=== PATIENT | female | born 1965 | race Caucasian/White ===

== ENCOUNTER → 2018-05-21 | Day surgery (SDC) | payer BC ==
[2018-05-17 14:11] LABS: BASOPHILS # (AUTO) 0.1 (0.0-0.1); BASOPHILS % 0.5 % (0.0-1.0); EOSINOPHILS # (AUTO) 0.5 (0.0-0.4); EOSINOPHILS % 5.6 % (0.0-6.0); HEMATOCRIT 41.5 % (34.2-44.1); HEMOGLOBIN 13.6 g/dL (12.0-16.0); LYMPHOCYTES # (AUTO) 2.2 (1.0-3.2); LYMPHOCYTES % 23.1 % (18.0-39.1); MEAN CORPUSCULAR HEMOGLOBIN 30.5 pg (28-32); MEAN CORPUSCULAR HGB CONC 32.8 g/dL (31-35); MONOCYTES # (AUTO) 0.6 (0.2-0.8); MONOCYTES % 5.9 % (4.4-11.3); NEUTROPHILS # (AUTO) 6.1 (2.1-6.9); NEUTROPHILS % 64.4 % (38.7-80.0); PLATELET COUNT 312 x10e3/uL (140-360); RED BLOOD COUNT 4.46 x10e6/uL (3.6-5.1); RED CELL DISTRIBUTION WIDTH 14.5 % (11.7-14.4)
[2018-05-17 14:29] LABS: ANION GAP 15.7 mmol/L (8-16); BLOOD UREA NITROGEN 9 mg/dL (7-26); BUN/CREATININE RATIO 12 (6-25); CALCIUM 9.9 mg/dL (8.4-10.2); CARBON DIOXIDE 24 mmol/L (22-29); CHLORIDE 109 mmol/L (98-107); CREATININE, SERUM 0.75 mg/dL (0.57-1.11); EST GLOMERULAR FILTRATION RATE > 60 ML/MIN (60-); GLUCOSE 92 mg/dL (74-118); POTASSIUM 4.7 mmol/L (3.5-5.1); SODIUM 144 mmol/L (136-145)
--- NOTE | 2018-05-17 14:40 | Diagnostic Imaging Report ---
EXAMINATION: PA and lateral views of the chest. COMPARISON: None CLINICAL HISTORY: Preadmission, right foot surgery DISCUSSION: Lines/tubes: None. Lungs: The lungs are well inflated and clear. No pneumonia or pulmonary edema. Pleura: No pleural effusion or pneumothorax. Heart and mediastinum: The cardiomediastinal silhouette is normal. Bones and soft tissues: No acute bony abnormalities. IMPRESSION: No acute cardiopulmonary abnormalities. Signed by: Dr. Mihai Blackwell M.D. on 05/17/2018 2:37 PM
[~2018-05-21] MED LIST: BUPIVACAINE HCL 0.5% INJ 30 ML VIAL INJ ONE; CLINDAMYCIN PHOS 900MG/ 50ML 50 ML IV ONE; D3 DOTS2000 UNIT PO; DEXAMETHASONE SOD PHOS INJ 4 MG/ML VIAL ONE; DEXILANT60 MG PO; FENTANYL CITRATE/PF 100MCG/2 ML INJ ONE; KETOROLAC TROMETHAMINE 30 MG/ML VIAL ONE; LEVOTHYROXINE150 MCG PO; LIDOCAINE HCL 2% LOCAL INJ 5 ML SDV VIAL INJ ONE; METRONIDAZOLE500 MG PO; MIDAZOLAM HCL 2 MG/2 ML VIAL ONE; NEOSTIGMINE 1 MG/ML 10ML VIAL ONE; ONDANSETRON HCL INJ 2 MG/ML VIAL ONE; PROPOFOL IV EMULSION 10 MG/ML 20 ML VIAL ONE; SEVOFLURANE INHAL SOLN 250 ML PEN BTL ONE
--- OUTSIDE RECORDS SUMMARY | 2018-05-21 05:34 | XMS REPORT | Summary of Care ---
Author Author [facility] Organization [facility] Address Unknown Phone Unavailable Encounter SHAUN Mondragon(JAYNA) [id number] Date(s): 07/04/17 - 07/04/17 [facility] [address] [place] [address]- Discharge Diagnosis: PALPITATIONS Discharge Disposition: Home or Self Care Attending Physician: Damon Pierre DO Vital Signs 1 2 3 Most recent to oldest [Reference Range]: 172.72 cm (07/04/17 4:45 PM) Height 98.0 DegF (07/04/17 4:45 PM) Temperature Oral [96.4-99.1 DegF] 109/68 mmHg (07/04/17 8:04 PM) 106/61 mmHg (07/04/17 7:16 PM) 108/60 mmHg (07/04/17 6:40 PM) Blood Pressure [90-140/60-90 mmHg] 21 BRMIN *HI* (07/04/17 8:04 PM) 15 BRMIN (07/04/17 7:16 PM) 18 BRMIN (07/04/17 6:40 PM) Respiratory Rate [14-20 BRMIN] 157 bpm *HI* (07/04/17 4:45 PM) Peripheral Pulse Rate [60-100 bpm] 68.182 kg (07/04/17 4:45 PM) Weight 22.86 m2 (07/04/17 4:45 PM) Body Mass Index Problem List Condition Effective Dates Status Health Status Informant Acquired Resolved hypothyroidism(Confi rmed) Bipolar(Confirmed) Resolved Allergies, Adverse Reactions, Alerts Substance Reaction Severity Status penicillins Active codeine Active Lodine Active NKDA Active Medications NS (Bolus) IV 1,000 mL, 1,000 ml/hr, Infuse Over: 1 hr, Route: IV, ONCE, Priority: STAT, Dosin g Weight 68.182 kg, Start date: 07/04/17 18:04:00 [employer]ING MANUFACTURING SET UP TECHNICIAN, Stop date: 07/04/17 18:04 :00 [employer] MANU[employer]URING SET UP TECHNICIAN Start Date: 07/04/17 Stop Date: 07/04/17 Status: Completed Saline Flush 0.9% 10 mL, Route: IVP, Drug Form: INJ, Dosing Weight 65.909, kg, PRN, PRN Line Flush , Start date: 07/04/17 16:51:00 [employer]ING MANUFA[employer]URING SET UP TECHNICIAN, Duration: 30 day, Stop date: 08/03/17 16:50 :00 SPRING MANUFACTURING SET UP TECHNICIAN Notes: (Same as: BD Posiflush) Start Date: 07/04/17 Stop Date: 07/04/17 Status: Discontinued Results ELECTROLYTES Most recent to 1 oldest [Reference Range]: Sodium Lvl [135-145 140 mEq/L mEq/L] (07/04/17 5:28 PM) Potassium Lvl 3.7 mEq/L [3.5-5.1 mEq/L] (07/04/17 5:28 PM) Chloride Lvl [95-109 108 mEq/L mEq/L] (07/04/17 5:28 PM) CO2 [24-32 mEq/L] 24 mEq/L (07/04/17 5:28 PM) AGAP [10.0-20.0 11.7 mEq/L mEq/L] (07/04/17 5:28 PM) CHEM PANEL Most recent to 1 oldest [Reference Range]: Creatinine Lvl 0.88 mg/dL [0.50-1.40 mg/dL] (07/04/17 5:28 PM) eGFR 75 mL/min/1.73m2 1 *NA* (07/04/17 5:28 PM) BUN [7-22 mg/dL] 16 mg/dL (07/04/17 5:28 PM) B/C Ratio [6-25] 18 (07/04/17 5:28 PM) Glucose Lvl [70-99 112 mg/dL mg/dL] *HI* (07/04/17 5:28 PM) Total Protein 8.3 g/dL [6.4-8.4 g/dL] (07/04/17 5:28 PM) Albumin Lvl [3.5-5.0 3.9 g/dL g/dL] (07/04/17 5:28 PM) Globulin [2.7-4.2 4.4 g/dL g/dL] *HI* (07/04/17 5:28 PM) A/G Ratio [0.7-1.6] 0.9 (07/04/17 5:28 PM) Calcium Lvl 9.0 mg/dL [8.5-10.5 mg/dL] (07/04/17 5:28 PM) Phosphorus [2.5-4.5 2.8 mg/dL mg/dL] (07/04/17 5:28 PM) Magnesium Lvl 2.3 mg/dL [1.8-2.4 mg/dL] (07/04/17 5:28 PM) ALT [0-65 unit/L] 22 unit/L (07/04/17 5:28 PM) AST [0-37 unit/L] 12 unit/L (07/04/17 5:28 PM) Alk Phos [39-136 102 unit/L unit/L] (07/04/17 5:28 PM) Bili Total [0.2-1.3 0.2 mg/dL mg/dL] (07/04/17 5:28 PM) 1Result Comment: The eGFR is calculated using the CKD-EPI formula. In most young, healthy individuals the eGFR will be >90 mL/min/1.73m2. The eGFR declines with age. An eGFR of 60-89 may be normal in some populations, particularly the elderly, for whom the CKD-EPI formula has not been extensively validated. Use of the eGFR is not recommended in the following populations: Individuals with unstable creatinine concentrations, including patients and those with serious co-morbid conditions. Patients with extremes in muscle mass or diet. The data above are obtained from the National Kidney Disease Education Program ( NKDEP) which additionally recommends that when the eGFR is used in patients with extremes of body mass index for purposes of drug dosing, the eGFR should be mul tiplied by the estimated BMI. CARDIAC ENZYMES Most recent to 1 oldest [Reference Range]: Total CK [12-191 55 unit/L unit/L] (07/04/17 5:28 PM) CK MB [0.5-3.6 <0.5 ng/mL ng/mL] (07/04/17 5:28 PM) CK MB Index <0.9 [0.0-2.5] (07/04/17 5:28 PM) Troponin-I <0.02 ng/mL [0.00-0.40 ng/mL] (07/04/17 5:28 PM) DRUG SCREEN Most recent to 1 oldest [Reference Range]: U Amph Scr Negative [Negative] *NA* (07/04/17 5:28 PM) U Gely Scr Negative [Negative] *NA* (07/04/17 5:28 PM) U Benzodia Scr Negative [Negative] *NA* (07/04/17 5:28 PM) U Cocaine Scr Negative [Negative] *NA* (07/04/17 5:28 PM) U Opiate Scr Negative [Negative] *NA* (07/04/17 5:28 PM) U Phencyc Scr Negative [Negative] *NA* (07/04/17 5:28 PM) U Cannab Scr Negative [Negative] *NA* (07/04/17 5:28 PM) UDS Note See Note (07/04/17 5:28 PM) URINE AND STOOL Most recent to 1 oldest [Reference Range]: UA Turbidity [Clear] Clear (07/04/17 5:28 PM) UA Color Ltyellow *NA* (07/04/17 5:28 PM) UA pH [5.0-8.0] 7.0 (07/04/17 5:28 PM) UA Spec Grav 1.002 [<=1.030] (07/04/17 5:28 PM) UA Glucose [Negative Negative mg/dL mg/dL] *NA* (07/04/17 5:28 PM) UA Blood [Negative] Small *ABN* (07/04/17 5:28 PM) UA Ketones [Negative Negative mg/dL mg/dL] *NA* (07/04/17 5:28 PM) UA Protein [Negative Negative mg/dL mg/dL] (07/04/17 5:28 PM) UA Urobilinogen <=1.0 mg/dL [0.1-1.0 mg/dL] *NA* (07/04/17 5:28 PM) UA Bili [Negative] Negative *NA* (07/04/17 5:28 PM) UA Leuk Est Large [Negative] *ABN* (07/04/17 5:28 PM) UA Nitrite Negative [Negative] (07/04/17 5:28 PM) UA WBC [0-5 /HPF] 3 /HPF (07/04/17 5:28 PM) UA RBC [0-2 /HPF] 1 /HPF (07/04/17 5:28 PM) UA Sq Epi [Few /LPF] Occasional /LPF *NA* (07/04/17 5:28 PM) HEMATOLOGY Most recent to 1 oldest [Reference Range]: WBC [3.7-10.4 K/CMM] 14.3 K/CMM *HI* (07/04/17 5:28 PM) RBC [4.20-5.40 4.85 M/CMM M/CMM] (07/04/17 5:28 PM) Hgb [12.0-16.0 g/dL] 15.0 g/dL (07/04/17 5:28 PM) Hct [36.0-48.0 %] 44.5 % (07/04/17 5:28 PM) MCV [80.0-98.0 fL] 91.7 fL (07/04/17 5:28 PM) MCH [27.0-31.0 pg] 30.8 pg (07/04/17 5:28 PM) MCHC [32.0-36.0 33.6 g/dL g/dL] (07/04/17 5:28 PM) RDW [11.5-14.5 %] 15.0 % *HI* (07/04/17 5:28 PM) Platelet [133-450 381 K/CMM K/CMM] (07/04/17 5:28 PM) MPV [7.4-10.4 fL] 8.1 fL (07/04/17 5:28 PM) Segs [45.0-75.0 %] 72.2 % (07/04/17 5:28 PM) Lymphocytes 21.7 % [20.0-40.0 %] (07/04/17 5:28 PM) Monocytes [2.0-12.0 3.3 % %] (07/04/17 5:28 PM) Eosinophils [0.0-4.0 2.0 % %] (07/04/17 5:28 PM) Basophils [0.0-1.0 0.8 % %] (07/04/17 5:28 PM) Segs-Bands # 10.3 K/CMM [1.5-8.1 K/CMM] *HI* (07/04/17 5:28 PM) Lymphocytes # 3.1 K/CMM [1.0-5.5 K/CMM] (07/04/17 5:28 PM) Monocytes # [0.0-0.8 0.5 K/CMM K/CMM] (07/04/17 5:28 PM) Eosinophils # 0.3 K/CMM [0.0-0.5 K/CMM] (07/04/17 5:28 PM) Basophils # [0.0-0.2 0.1 K/CMM K/CMM] (07/04/17 5:28 PM) Immunizations Given and Recorded Vaccine Date Status Refusal Reason diphtheria/pertussis, acel/tetanus adult 11/12/12 Given Procedures Procedure Date Related Diagnosis Body Site Breast lumpectomy1 Cholecystectomy Reconstruction 1biopsy negative Social History Social History Type Response Smoking Status Never smoker; Previous treatment: None; Ready to change: No; Concerns about tobacco use in household: No; Exposure to Tobacco Smoke None; Cigarette Smoking Last 365 Days No; Reg Smoking Cessation Counseling No Assessment and Plan No data available for this section
--- OUTSIDE RECORDS SUMMARY | 2018-05-21 05:34 | XMS REPORT | Summary of Care ---
Author Author [facility] Alex [facility] Organization [facility] Address Unknown Phone Unavailable Encounter HQ Encntr_alias(FIN) [id number] Date(s): 12/25/14 - 01/23/15 [facility] Discharge Disposition: Home Attending Physician: South Cassidy MD Vital Signs No data available for this section Problem List Condition Effective Dates Status Health Status Informant Acquired Resolved hypothyroidism(Confi rmed) Bipolar(Confirmed) Resolved Allergies, Adverse Reactions, Alerts Substance Reaction Severity Status codeine Active Lodine Active NKDA Active penicillins Active Medications No data available for this section Results No data available for this section Immunizations Vaccine Date Refusal Reason diphtheria/pertussis, acel/tetanus adult 11/12/12 Procedures Procedure Date Related Diagnosis Body Site Breast lumpectomy1 Cholecystectomy Reconstruction 1biopsy negative Social History Social History Type Response Assessment and Plan No data available for this section
--- OUTSIDE RECORDS SUMMARY | 2018-05-21 05:34 | XMS REPORT | Summary of Care ---
Author Organization Unknown Address Unknown Phone Unavailable Encounter HQ Jean-Pierre_marie(AJYNA) [id number] Date(s): 11/30/13 - 11/30/13 [facility] Outpatient Imaging [address] Discharge Disposition: Home Physician Attending: Kam Smith MD Reason for Visit 719.46 - JOINT PAIN-L/LE Problem List Condition Effective Dates Status Health Status Informant Acquired Resolved hypothyroidism(Confi rmed) Bipolar(Confirmed) Resolved Allergies, Adverse Reactions, Alerts Substance Reaction Severity Status codeine Active Lodine Active NKDA Active penicillins Active Medications No data available for this section Medications Administered During Your Visit No data available for this section Immunizations Vaccine Date Refusal Reason diphtheria/pertussis, acel/tetanus adult 11/12/12 Social History Social History Type Response
--- OUTSIDE RECORDS SUMMARY | 2018-05-21 05:34 | XMS REPORT | CCD ---
Author Author Auto Generated Organization [facility] Outpatient Imaging [place] Address Unknown Phone Unavailable Care Team Providers Care Manager Discovery Name Role Phone Kam Smith CP Allergies, Adverse Reactions, Alerts Substance Reaction Status codeine Active Lodine Active NKDA Active penicillins Active Problem List Condition Effective Dates Status Acquired hypothyroidism Resolved Bipolar Resolved Medications Medication Instructions Start Date End Date Status Tdap 0.5 mL, Route: IM, Drug Form: INJ, 11/12/2012 11/12/2012 Completed Dosing Weight 65.909, kg, ONCE, STAT, Start date: 11/12/12 11:36:00, Stop date: 11/12/12 11:36:00(Tdap ) For Adolecent and Adult use For IM Use. Same as: Adacel (Tdap) Immunizations Vaccine Date Status diphtheria/pertussis, acel/tetanus adult 11/12/2012 Auth (Verified)
--- OUTSIDE RECORDS SUMMARY | 2018-05-21 05:34 | XMS REPORT | CCD ---
Author Author Auto Generated Organization [facility] Address Unknown Phone Unavailable Care Team Providers Care Admissions Coordinator Name Role Phone Adam Schwartz CP Allergies, Adverse Reactions, Alerts Substance Reaction [...]
--- OUTSIDE RECORDS SUMMARY | 2018-05-21 05:34 | XMS REPORT | Summary of Care ---
Author Organization Unknown Address Unknown Phone Unavailable Encounter HQ Avivar_marie(FIN) [id number] Date(s): 10/23/14 - 11/21/14 [facility] Discharge Disposition: Home Physician Attending: South Cassidy MD Vital Signs No data [...]
--- OUTSIDE RECORDS SUMMARY | 2018-05-21 05:34 | XMS REPORT | CCD ---
Author Author Auto Generated Organization [facility] Outpatient Imaging [place] Address Unknown Phone Unavailable Care Team Providers Care Deckhand Fishing Vessel Name Role Phone Luis Kam Homar CP Allergies, Adverse Reactions, Alerts Substance Reaction Status codeine Active Lodine Active NKDA Active penicillins Active Problem List Condition Effective Dates Status Acquired hypothyroidism Resolved Bipolar Resolved Medications Medication Instructions Start Date End Date Status Tdap 0.5 mL, Route: IM, Drug Form: INJ, 11/12/2012 11/12/2012 Completed Dosing Weight 65.909, kg, ONCE, STAT, Start date: 11/12/12 11:36:00, Stop date: 11/12/12 11:36:00 Immunizations Vaccine Date Status diphtheria/pertussis, acel/tetanus adult 11/12/2012 Auth (Verified)
--- OUTSIDE RECORDS SUMMARY | 2018-05-21 05:34 | XMS REPORT | CCD ---
Author Author Auto Generated Organization [facility] Outpatient Imaging [place] Address Unknown Phone Unavailable Care Team Providers Care Hat Model Name Role Phone Kam Smith CP Allergies, [...]
--- OUTSIDE RECORDS SUMMARY | 2018-05-21 05:34 | XMS REPORT | Summary of Care ---
Author Organization Unknown Address Unknown Phone Unavailable Encounter HQ Avivar_marie(FIN) [id number] Date(s): 11/24/14 - 12/23/14 [facility] Discharge Disposition: Home [...]
--- OUTSIDE RECORDS SUMMARY | 2018-05-21 05:34 | XMS REPORT | CCD ---
Author Author Auto Generated Organization [facility] Address Unknown Phone Unavailable Care Team Providers Care Senior Gl Accountant Name Role Phone EfrenAdam CP Allergies, Adverse Reactions, Alerts Substance Reaction [...]
--- OUTSIDE RECORDS SUMMARY | 2018-05-21 05:34 | XMS REPORT | Summary of Care ---
Author Author [facility] Alex [facility] Organization [facility] Address Unknown Phone Unavailable Encounter HQ Encntr_alias(FIN) [id number] Date(s): 02/26/15 - [facility] Discharge Disposition: Home Attending Physician: South Cassidy [...]
--- OUTSIDE RECORDS SUMMARY | 2018-05-21 05:34 | XMS REPORT | Summary of Care ---
Author Author [facility] Alex [facility] Organization [facility] Address Unknown Phone Unavailable Encounter HQ Encntr_alias(FIN) [id number] Date(s): 01/26/15 [facility] Discharge Disposition: Home Attending Physician: South Cassidy [...]
--- OUTSIDE RECORDS SUMMARY | 2018-05-21 05:34 | XMS REPORT | CCD ---
Author Author Auto Generated Organization [facility] Alex A [facility] Address Unknown Phone Unavailable Care Team Providers Care Foster Care Therapist Name Role Phone Jacksonann-marieKam CP Allergies, Adverse Reactions, Alerts Substance Reaction [...]
--- OUTSIDE RECORDS SUMMARY | 2018-05-21 05:34 | XMS REPORT | CCD ---
Author Author Auto Generated Organization [facility] Outpatient Imaging [place] Address Unknown Phone Unavailable Care Team Providers Care Surveillance Systems Engineer Name Role Phone Kam Smith CP Allergies, [...]
--- OUTSIDE RECORDS SUMMARY | 2018-05-21 05:34 | XMS REPORT | CCD ---
Author Author Auto Generated Organization [facility] Address Unknown Phone Unavailable Care Team Providers Care Communications Department Head Name Role Phone Adam Schwartz CP Allergies, [...]
--- OUTSIDE RECORDS SUMMARY | 2018-05-21 05:34 | XMS REPORT | CCD ---
Author Author Auto Generated Organization [facility] Outpatient Imaging - [place] Address Unknown Phone Unavailable Care Team Providers Care Scuba Dive Training Instructor Name Role Phone Kam Smith CP Allergies, [...]
--- OUTSIDE RECORDS SUMMARY | 2018-05-21 05:34 | XMS REPORT | CCD ---
Author Author Auto Generated Organization [facility] Outpatient Imaging [place] Address Unknown Phone Unavailable Care Team Providers Care Wet Machine Cutter Name Role Phone Kam Smith CP Allergies, [...]
--- OUTSIDE RECORDS SUMMARY | 2018-05-21 05:34 | XMS REPORT | Summary of Care ---
Author Organization Unknown Address Unknown Phone Unavailable Encounter HQ Jean-Pierre_marie(JAYNA) [id number] Date(s): 01/11/14 - 01/11/14 [facility] Outpatient Imaging - [place] [address] [address] Discharge Disposition: Home Physician Attending: Kam [...]
--- OUTSIDE RECORDS SUMMARY | 2018-05-21 05:34 | XMS REPORT | CCD ---
Author Author Auto Generated Organization [facility] Address Unknown Phone Unavailable Care Team Providers Care Pharmacy Customer Care Specialist Name Role Phone EfrenAdam CP Allergies, Adverse [...]
--- OUTSIDE RECORDS SUMMARY | 2018-05-21 05:34 | XMS REPORT ---
Author Author [facility] Address Unknown Phone Unavailable Care Team Providers Care Synthetic Resin Operator Name Role Phone STU AGUILAR Unavailable Unavailable Problems This patient has no known problems. Allergies, Adverse Reactions, Alerts This patient has no known allergies or adverse reactions. Medications This patient has no known medications. Results Test Description Test Time Test Comments Text Results Atomic Results Result Comments CHEST 2 VIEWS 2018-05-17 14:36:00 [place] [address] Patient Name: GALA SOLIMAN MR #: [id number] : 1965 Age/Sex: 53/F Req #: [id number] [facility] Physician: Ordered by: STU AGUILAR DPM Report #: [id number] Location: OR Room/Bed: Procedure: [id number] DX/CHEST 2 VIEWS Exam Date: 05/17/18 Exam Time: 1410 REPORT STATUS: Signed EXAMINATION: PA and lateral views of the chest. SUHAS RISON: None CLINICAL HISTORY: Preadmission, right foot surgery DISCUSSION: Lines/tubes: None. Lungs: The lungs are well inflated and clear. No pneumonia or pulmonary edema. Pleura: No pleural effusion or pneumothorax. Heart and mediastinum: The cardiomediastinal silhouette is normal. Bones and soft tissues: No acute bony abnormalities. IMPRESSION: No acute cardiopulmonary abnormalities. Signed by: Dr. Luz Alonso M.D. on 05/17/2018 2:37 PM Dictated By: LUZ ALONSO MD [id number] Transcribed By: JUDI on 05/17/18 143 COPY TO: STU AGUILAR DPM
--- OUTSIDE RECORDS SUMMARY | 2018-05-21 05:34 | XMS REPORT | CCD ---
Author Author Auto Generated Organization [facility] Outpatient Imaging [place] Address Unknown Phone Unavailable Care Team Providers Care Wholesale Parts Salesperson Name Role Phone Kam Smith CP Allergies, [...]
--- OUTSIDE RECORDS SUMMARY | 2018-05-21 05:34 | XMS REPORT | CCD ---
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 Name Role Phone Marsha Burciaga CP Allergies, Adverse Reactions, Alerts Substance Reaction Status codeine Active Lodine Active NKDA Active penicillins Active Problem List Condition Effective Dates Status Acquired hypothyroidism Resolved Bipolar Resolved Medications Medication Instructions Start Date End Date Status Zofran 4 mg, 2 mL, Route: IV, Drug form: 11/13/2012 11/16/2012 Discontinued INJ, Q8H, Dosing Weight 65.909, kg, PRN Nausea, Start date: 11/13/12 0:41:00, Duration: 30 day, Stop date: 12/13/12 0:40:00 hydromorphone 1 mg, Route: IV, ONCE, Dosing 11/12/2012 11/12/2012 Completed Weight 65.909, kg, Start date: 11/12/12 14:00:00, Stop date: 11/12/12 14:00:00 Synthroid 150 microgram, 1 tab, Route: PO, 11/13/2012 11/16/2012 Discontinued Drug form: TAB, Daily, Dosing Weight 65.909, kg, Start date: 11/13/12 9:00:00, Duration: 30 day, Stop date: 12/12/12 9:00:00 Synthroid 150 mcg 150 microgram, 1 tab, PO, Daily, 30 11/12/2012 Ordered (0.15 mg) oral tab, Substitution Allowed, TAB tablet NS 1,000 mL 1,000 mL, Rate: 75 ml/hr, Infuse 11/13/2012 11/14/2012 Discontinued over: 13.3 hr, Route: IV, kg, Total Volume: 1,000, Start date: 11/13/12 12:01:00, Duration: 30 day, Stop date: 12/13/12 12:00:00 methylene blue 10 Route: INTRASYNOVIAL, Drug form: 11/12/2012 11/12/2012 Completed mg/mL injectable INJ, ONCE, Dosing Weight 65.909, solution kg, Priority: STAT, Start date: 11/12/12 11:38:00, Stop date: 11/12/12 11:38:00, 1 vial 1 vial hydrALAZINE 5 mg, 0.25 mL, Route: IVP, Drug 11/12/2012 11/12/2012 Discontinued form: INJ, Q5Min, Dosing Weight 65.909, kg, PRN Elevated BP, Start date: 11/12/12 17:57:00, Duration: 4 doses or times, Stop date: 11/13/12 0:00:00 flumazenil 0.2 mg, 2 mL, Route: IVP, Drug 11/12/2012 11/12/2012 Discontinued form: INJ, PRN, Dosing Weight 65.909, kg, PRN Benzodiazepine Reversal, Initial dose, Start date: 11/12/12 17:57:00, Stop date: 11/13/12 0:00:00 fentanyl 25 microgram, 0.5 mL, Route: IVP, 11/12/2012 11/12/2012 Discontinued Drug form: INJ, Q5Min, Dosing Weight 65.909, kg, PRN Pain Score 4-6, Start date: 11/12/12 17:57:00, Duration: 4 doses or times, Stop date: 11/13/12 0:00:00 naloxone 0.04 mg, 0.1 mL, Route: IVP, Drug 11/12/2012 11/12/2012 Discontinued form: INJ, Q2MIN, Dosing Weight 65.909, kg, PRN Narcotic Reversal, Start date: 11/12/12 17:57:00, Duration: 8 doses or times, Stop date: 11/13/12 0:00:00 ondansetron 4 mg, 2 mL, Route: IVP, Drug form: 11/12/2012 11/12/2012 Discontinued INJ, ONCE, Dosing Weight 65.909, kg, PRN Nausea & Vomiting, Start date: 11/12/12 17:57:00 labetalol 5 mg, 1 mL, Route: IVP, Drug form: 11/12/2012 11/12/2012 Discontinued INJ, Q5Min, Dosing Weight 65.909, kg, PRN Elevated BP, Start date: 11/12/12 17:57:00, Duration: 5 doses or times, Stop date: 11/13/12 0:00:00 docusate 100 mg, 1 cap, Route: PO, Drug 11/12/2012 11/16/2012 Discontinued form: CAP, BID, Dosing Weight 65.909, kg, Start date: 11/12/12 20:38:00, Duration: 30 day, Stop date: 12/12/12 17:00:00 morphine Sulfate 2 mg, 1 mL, Route: IVP, Drug form: 11/12/2012 11/14/2012 Discontinued INJ, Q4H, Dosing Weight 65.909, kg, PRN Pain Score 7-10, Start date: 11/12/12 20:38:00, Duration: 30 day, Stop date: 12/12/12 20:37:00 acetaminophen-hydroc 1 tab, Route: PO, Drug Form: TAB, 11/12/2012 11/16/2012 Discontinued odone 325 mg-10 mg Dosing Weight 65.909, kg, Q6H, PRN oral tablet Pain Score 4-6, Start date: 11/12/12 20:38:00, Duration: 30 day, Stop date: 12/12/12 20:37:00 acetaminophen-hydroc 1 tab, Route: PO, Drug Form: TAB, 11/13/2012 11/16/2012 Discontinued odone 325 mg-5 mg Dosing Weight 65.909, kg, Q6H, oral tablet Start date: 11/13/12 0:00:00, Duration: 30 day, Stop date: 12/12/12 18:00:00 Lovenox 30 mg, 0.3 mL, Route: SUB-Q, Drug 11/12/2012 11/16/2012 Discontinued form: INJ, [id number], Dosing Weight 65.909, kg, Priority: STAT, Start date: 11/12/12 20:02:00, Duration: 30 day, Stop date: 12/12/12 8:02:00 tramadol 50 mg oral 100 mg, 2 tab, PO, Q6H, PRN, 56 11/16/2012 11/23/2012 Ordered tablet tab, Pain, Substitution Allowed, TAB Ancef 1 gm, Route: IVPB, Drug form: 11/12/2012 11/16/2012 Discontinued PDR/INJ, Q8H, Dosing Weight 65.909, kg, Priority: STAT, Start date: 11/12/12 17:24:00, Duration: 30 day, Stop date: 12/12/12 16:00:00 cefazolin 1 gm, Route: IV, Drug form: 11/12/2012 11/12/2012 Completed PDR/INJ, ONCE, Dosing Weight 65.909, kg, Patients weighing < 80kg, Priority: STAT, Start date: 11/12/12 11:36:00, Stop date: 11/12/12 11:36:00 Tdap 0.5 mL, Route: IM, Drug Form: INJ, 11/12/2012 11/12/2012 Completed Dosing Weight 65.909, kg, ONCE, STAT, Start date: 11/12/12 11:36:00, Stop date: 11/12/12 11:36:00 ondansetron 4 mg, 2 mL, Route: IVP, Drug form: 11/12/2012 11/12/2012 Completed INJ, ONCE, Dosing Weight 65.909, kg, Priority: STAT, Start date: 11/12/12 11:36:00, Stop date: 11/12/12 11:36:00 morphine Sulfate 5 mg, 1.25 mL, Route: IVP, Drug 11/12/2012 11/12/2012 Completed form: INJ, ONCE, Dosing Weight 65.909, kg, Priority: STAT, Start date: 11/12/12 11:36:00, Stop date: 11/12/12 11:36:00 Saline Flush 0.9% 5 mL, Route: IVP, Drug Form: INJ, 11/12/2012 11/16/2012 Discontinued Dosing Weight 65.909, kg, PRN, PRN Line Flush, Start date: 11/12/12 11:36:00, Duration: 30 day, Stop date: 12/12/12 11:35:00 Sodium Chloride 0.9% 1,000 mL, Rate: 1,000 ml/hr, Infuse 11/12/2012 11/12/2012 Completed (Bolus) IV 1,000 mL over: 1 hr, Route: IV, Total Volume: 1,000, Priority: STAT, Start date: 11/12/12 11:36:00, Duration: 1 doses or times, Stop date: 11/12/12 12:35:00 senna 8.6 mg oral 17.2 mg, 2 tab, Route: PO, Drug 11/15/2012 11/16/2012 Discontinued tablet Form: TAB, Dosing Weight 65.909, kg, Bedtime, Start date: 11/15/12 21:00:00, Duration: 30 day, Stop date: 12/14/12 21:00:00 Visipaque 320mg/ml 94 mL, Route: IVP, Drug Form: SOLN, 11/12/2012 11/12/2012 Completed Dosing Weight 65.909, kg, ONCALL, STAT, Start date: 11/12/12 13:03:00, Duration: 1 doses or times, Dose=2.2ml/kg, Max hsqs=[id number] -- "To be infused by Radiology Staff ONLY" Dose=2.2ml/kg, Max mdor=149bf -- "To be infused by Radiology Staff ONLY" Protonix 40 mg, Route: IV, Drug form: INJ, 11/13/2012 11/16/2012 Discontinued Daily, Dosing Weight 65.909, kg, Start date: 11/13/12 11:56:00, Duration: 30 day, Stop date: 12/13/12 9:00:00 calcium carbonate 500 mg, 1 tab, Route: CHEW, Drug 11/14/2012 11/15/2012 Completed form: CHEWTAB, TID, Dosing Weight 65.909, kg, Start date: 11/14/12 17:46:00, Duration: 1 day, Stop date: 11/15/12 17:00:00 tramadol 100 mg, 2 tab, Route: PO, Drug 11/14/2012 11/16/2012 Discontinued form: TAB, Q6H, Dosing Weight 65.909, kg, PRN Pain, Start date: 11/14/12 7:44:00, Duration: 30 day, Stop date: 12/14/12 7:43:00 Immunizations Vaccine Date Status diphtheria/pertussis, acel/tetanus adult 11/12/2012 Auth (Verified) Vital Signs Most recent to oldest [Reference Range]: 1 2 3 Height 172.7 cm (11/12/2012 22:39:00) 172.72 cm (11/12/2012 11:15:00) Temperature Oral [96.4-99.1 DegF] 98.1 DegF (11/16/2012 07:59:00) 98.1 DegF (11/16/2012 04:01:00) 98.2 DegF (11/16/2012 00:04:00) Systolic Blood Pressure [90-140 mmHg] 113 mmHg (11/16/2012 07:59:00) 128 mmHg (11/16/2012 04:01:00) 106 mmHg (11/16/2012 00:04:00) Diastolic Blood Pressure [60-90 mmHg] 65 mmHg (11/16/2012 07:59:00) 78 mmHg (11/16/2012 04:01:00) 56 mmHg *LOW* (11/16/2012 00:04:00) Respiratory Rate [14-20 BRMIN] 18 BRMIN (11/16/2012 07:59:00) 20 BRMIN (11/16/2012 04:01:00) 20 BRMIN (11/16/2012 00:04:00) Peripheral Pulse Rate [60-100 bpm] 89 bpm (11/16/2012 07:59:00) 76 bpm (11/16/2012 04:01:00) 80 bpm (11/16/2012 00:04:00) Weight 65.909 kg (11/12/2012 22:39:00) 65.909 kg (11/12/2012 11:15:00) Results URINALYSIS Most recent to oldest [Reference Range]: 1 2 3 UA Turbidity [Clear] Slight *ABN* (11/13/2012 01:07:58) UA Color [Yellow] Green *ABN* (11/13/2012 01:07:58) UA pH [5.0-8.0] 6.0 (11/13/2012 01:07:58) UA Spec Grav [<=1.030] >=1.050 *ABN* (11/13/2012 01:07:58) UA Glucose [Negative mg/dL] Negative mg/dL *NA* (11/13/2012 01:07:58) UA Blood [Negative] Trace *ABN* (11/13/2012 01:07:58) UA Ketones [Negative mg/dL] Negative mg/dL *NA* (11/13/2012 01:07:58) UA Protein [Negative mg/dL] 30 mg/dL *ABN* (11/13/2012 01:07:58) UA Urobilinogen [0.1-1.0 mg/dL] <=1.0 mg/dL *NA* (11/13/2012 01:07:58) UA Bili [Negative] Negative *NA* (11/13/2012 01:07:58) UA Leuk Est [Negative] Negative (11/13/2012 01:07:58) UA Nitrite [Negative] Negative (11/13/2012 01:07:58) UA WBC [0-5 /HPF] 3 /HPF (11/13/2012 01:07:58) UA RBC [0-2 /HPF] 10 /HPF *HI* (11/13/2012 01:07:58) UA Bacteria [None Seen /HPF] Few /HPF *NA* (11/13/2012 01:07:58) UA Sq Epi [Few /LPF] Many /LPF *ABN* (11/13/2012 01:07:58) UA Hyal Cast [0-2 /LPF] 5 /LPF *HI* (11/13/2012 01:07:58) UA Mucus [None Seen /LPF] Few /LPF *NA* (11/13/2012 01:07:58) UA Gran Cast 3 /LPF *NA* (11/13/2012 01:07:58) Micro? Performed *NA* (11/13/2012 01:07:58) CHEMISTRY Most recent to oldest [Reference Range]: 1 2 3 Sodium Lvl [135-145 mEq/L] 142 mEq/L (11/16/2012 02:00:00) 141 mEq/L (11/15/2012 04:05:00) 141 mEq/L (11/14/2012 08:59:00) Potassium Lvl [3.5-5.1 mEq/L] 4.2 mEq/L (11/16/2012 02:00:00) 4.4 mEq/L (11/15/2012 04:05:00) 4.1 mEq/L (11/14/2012 08:59:00) Chloride Lvl [95-109 mEq/L] 105 mEq/L (11/16/2012 02:00:00) 107 mEq/L (11/15/2012 04:05:00) 107 mEq/L (11/14/2012 08:59:00) CO2 [24-32 mEq/L] 25 mEq/L (11/16/2012 02:00:00) 24 mEq/L (11/15/2012 04:05:00) 25 mEq/L (11/14/2012 08:59:00) AGAP [10.0-20.0 mEq/L] 16.2 mEq/L (11/16/2012 02:00:00) 14.4 mEq/L (11/15/2012 04:05:00) 13.1 mEq/L (11/14/2012 08:59:00) Creatinine Lvl [0.5-1.4 mg/dL] 0.7 mg/dL (11/16/2012 02:00:00) 0.5 mg/dL (11/15/2012 04:05:00) 0.6 mg/dL (11/14/2012 08:59:00) eGFR 102 mL/min/1.73m2 1 *NA* (11/16/2012 02:00:00) 114 mL/min/1.73m2 2 *NA* (11/15/2012 04:05:00) 107 mL/min/1.73m2 3 *NA* (11/14/2012 08:59:00) BUN [7-22 mg/dL] 12 mg/dL (11/16/2012 02:00:00) 12 mg/dL (11/15/2012 04:05:00) 12 mg/dL (11/14/2012 08:59:00) B/C Ratio [6-25] 17 (11/16/2012 02:00:00) 24 (11/15/2012 04:05:00) 20 (11/14/2012 08:59:00) Glucose Lvl [70-99 mg/dL] 103 mg/dL 4 *HI* (11/16/2012 02:00:00) 88 mg/dL 5 (11/15/2012 04:05:00) 91 mg/dL 6 (11/14/2012 08:59:00) Total Protein [6.4-8.4 g/dL] 6.0 g/dL *LOW* (11/16/2012 02:00:00) 5.9 g/dL *LOW* (11/15/2012 04:05:00) 6.1 g/dL *LOW* (11/14/2012 08:59:00) Albumin Lvl [3.5-5.0 g/dL] 3.2 g/dL *LOW* (11/16/2012 02:00:00) 3.2 g/dL *LOW* (11/15/2012 04:05:00) 3.4 g/dL *LOW* (11/14/2012 08:59:00) Globulin [2.0-4.0 g/dL] 2.8 g/dL (11/16/2012 02:00:00) 2.7 g/dL (11/15/2012 04:05:00) 2.7 g/dL (11/14/2012 08:59:00) A/G Ratio [0.7-1.6] 1.1 (11/16/2012 02:00:00) 1.2 (11/15/2012 04:05:00) 1.3 (11/14/2012 08:59:00) Calcium Lvl [8.5-10.5 mg/dL] 8.7 mg/dL (11/16/2012 02:00:00) 8.2 mg/dL *LOW* (11/15/2012 04:05:00) 7.9 mg/dL *LOW* (11/14/2012 08:59:00) Phosphorus [2.5-4.5 mg/dL] 3.5 mg/dL (11/13/2012 04:49:00) Magnesium Lvl [1.8-2.4 mg/dL] 2.1 mg/dL (11/13/2012 04:49:00) ALT [0-65 unit/L] 101 unit/L *HI* (11/16/2012 02:00:00) 149 unit/L *HI* (11/15/2012 04:05:00) 227 unit/L *HI* (11/14/2012 08:59:00) AST [0-37 unit/L] 36 unit/L (11/16/2012 02:00:00) 66 unit/L *HI* (11/15/2012 04:05:00) 120 unit/L *HI* (11/14/2012 08:59:00) Alk Phos [39-136 unit/L] 97 unit/L (11/16/2012 02:00:00) 99 unit/L (11/15/2012 04:05:00) 111 unit/L (11/14/2012 08:59:00) Bili Total [0.2-1.3 mg/dL] 0.3 mg/dL (11/16/2012 02:00:00) 0.3 mg/dL (11/15/2012 04:05:00) 0.3 mg/dL (11/14/2012 08:59:00) Bili Direct [0.0-0.3 mg/dL] 0.1 mg/dL (11/13/2012 10:09:01) Bili Indirect [0.0-1.0 mg/dL] 0.3 mg/dL (11/13/2012 10:09:01) Lipase Lvl [73-393 unit/L] 71 unit/L *LOW* (11/13/2012 10:09:01) pH Satya [7.28-7.42] 7.26 *LOW* (11/12/2012 21:11:00) pCO2 Satya [38-52 mmHg] 53 mmHg *HI* (11/12/2012 21:11:00) pO2 Satya [20-49 mmHg] 165 mmHg *HI* (11/12/2012 21:11:00) HCO3 Satya [22-26 mMol/L] 24 mMol/L (11/12/2012 21:11:00) BE Satya [-2-2 mMol/L] -4 mMol/L *LOW* (11/12/2012 21:11:00) O2 Sat Satya [40.0-70.0 %] 99.3 % *HI* (11/12/2012 21:11:00) Temp Satya 37.0 DegC *NA* (11/12/2012 21:11:00) 1Result Comment: The eGFR is calculated using [...] be mul tiplied by the estimated BMI. 2Result Comment: The eGFR is calculated using the [...] be mul tiplied by the estimated BMI. 3Result Comment: The eGFR is calculated using the [...] be mul tiplied by the estimated BMI. 4Interpretive Data: Adult reference range values reflect the clinical guidelines of the [place] [employer]. 5Interpretive Data: Adult reference range values reflect the clinical guidelines of the [place] [employer]. 6Interpretive Data: Adult reference range values reflect the clinical guidelines of the [place] [employer]. HEMATOLOGY Most recent to oldest [Reference Range]: 1 2 3 WBC [3.7-10.4 K/CMM] 7.0 K/CMM (11/15/2012 04:05:00) 9.9 K/CMM (11/13/2012 04:49:00) 9.8 K/CMM (11/12/2012 11:37:00) RBC [4.20-5.40 M/CMM] 3.39 M/CMM *LOW* (11/15/2012 04:05:00) 3.86 M/CMM *LOW* (11/13/2012 04:49:00) 4.59 M/CMM (11/12/2012 11:37:00) Hgb [12.0-16.0 g/dL] 10.7 g/dL *LOW* (11/15/2012 04:05:00) 12.0 g/dL (11/13/2012 04:49:00) 14.5 g/dL (11/12/2012 11:37:00) Hct [36.0-48.0 %] 31.6 % *LOW* (11/15/2012 04:05:00) 35.9 % *LOW* (11/13/2012 04:49:00) 42.0 % (11/12/2012 11:37:00) MCV [81.0-99.0 fL] 93.1 fL (11/15/2012 04:05:00) 93.0 fL (11/13/2012 04:49:00) 91.3 fL (11/12/2012 11:37:00) MCH [27.0-31.0 pg] 31.5 pg *HI* (11/15/2012 04:05:00) 31.0 pg (11/13/2012 04:49:00) 31.6 pg *HI* (11/12/2012 11:37:00) MCHC [32.0-36.0 g/dL] 33.9 g/dL (11/15/2012 04:05:00) 33.3 g/dL (11/13/2012 04:49:00) 34.7 g/dL (11/12/2012 11:37:00) RDW [11.5-14.5 %] 13.5 % (11/15/2012 04:05:00) 14.1 % (11/13/2012 04:49:00) 12.8 % (11/12/2012 11:37:00) Platelet [133-450 K/CMM] 230 K/CMM (11/15/2012 04:05:00) 256 K/CMM (11/13/2012 04:49:00) 292 K/CMM (11/12/2012 11:37:00) MPV [7.4-10.4 fL] 8.2 fL (11/15/2012 04:05:00) 7.8 fL (11/13/2012 04:49:00) 8.2 fL (11/12/2012 11:37:00) Segs [45.0-75.0 %] 53.2 % (11/15/2012 04:05:00) 89.2 % *HI* (11/13/2012 04:49:00) 71.4 % (11/12/2012 11:37:00) Lymphocytes [20.0-40.0 %] 31.0 % (11/15/2012 04:05:00) 5.2 % *LOW* (11/13/2012 04:49:00) 17.4 % *LOW* (11/12/2012 11:37:00) Monocytes [2.0-12.0 %] 10.3 % (11/15/2012 04:05:00) 5.5 % (11/13/2012 04:49:00) 7.9 % (11/12/2012 11:37:00) Eosinophils [0.0-4.0 %] 4.7 % *HI* (11/15/2012 04:05:00) 3.0 % (11/12/2012 11:37:00) Basophils [0.0-1.0 %] 0.8 % (11/15/2012 04:05:00) 0.1 % (11/13/2012 04:49:00) 0.3 % (11/12/2012 11:37:00) Segs-Bands # [1.5-8.1 K/CMM] 3.7 K/CMM (11/15/2012 04:05:00) 8.8 K/CMM *HI* (11/13/2012 04:49:00) 7.0 K/CMM (11/12/2012 11:37:00) Lymphocytes # [1.0-5.5 K/CMM] 2.2 K/CMM (11/15/2012 04:05:00) 0.5 K/CMM *LOW* (11/13/2012 04:49:00) 1.7 K/CMM (11/12/2012 11:37:00) Monocytes # [0.0-0.8 K/CMM] 0.7 K/CMM (11/15/2012 04:05:00) 0.5 K/CMM (11/13/2012 04:49:00) 0.8 K/CMM (11/12/2012 11:37:00) Eosinophils # [0.0-0.5 K/CMM] 0.3 K/CMM (11/15/2012 04:05:00) 0.3 K/CMM (11/12/2012 11:37:00) Basophils # [0.0-0.2 K/CMM] 0.1 K/CMM (11/15/2012 04:05:00) 0.0 K/CMM (11/12/2012 11:37:00) Rapid TEG Sample Type Citrated Whole Blood *NA* (11/12/2012 11:37:00) ACT (TEG) [86-118 seconds] 105 seconds (11/12/2012 11:37:00) Split Point 0.5 minutes *NA* (11/12/2012 11:37:00) R-time [0.4-0.7 minutes] 0.6 minutes (11/12/2012 11:37:00) K-time [0.6-2.3 minutes] 0.8 minutes (11/12/2012 11:37:00) Angle [64-80 degrees] 79 degrees (11/12/2012 11:37:00) Max Amp [52-71 mm] 74 mm *HI* (11/12/2012 11:37:00) G-value [5.0-11.6 K d/sc] 14.2 K d/sc *HI* (11/12/2012 11:37:00) Estimated % Lysis [0.0-7.5 %] 2.8 % (11/12/2012 11:37:00) IMMUNOLOGY Most recent to oldest [Reference Range]: 1 2 3 CDC-HIV 1/2 Ab [Negative] Negative *NA* (11/13/2012 04:49:16) Hep Bs Ag [Negative] Negative *NA* (11/13/2012 10:09:01) Hep B Core IgM [Negative] Negative *NA* (11/13/2012 10:09:01) Hep A IgM [Negative] Negative *NA* (11/13/2012 10:09:01) Hep C Ab [Negative] Negative *NA* (11/13/2012 10:09:01) Procedures Procedures Date Related Diagnosis Breast lumpectomy 1 Cholecystectomy Reconstruction 1biopsy negative
--- OUTSIDE RECORDS SUMMARY | 2018-05-21 05:34 | XMS REPORT | Summary of Care ---
Author Organization Unknown Address Unknown Phone Unavailable Encounter [facility] Avivar_marie(FIN) [id number] Date(s): 12/12/13 - 01/10/14 [facility] Discharge Disposition: Home Physician Attending: Kam Smith MD Reason for Visit KNEE PAIN Problem List Condition Effective Dates Status Health [...]
[2018-05-21 09:30] VITALS: BP 110/73
--- NOTE | 2018-05-21 13:00 | Operative Report ---
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 POSTOPERATIVE DIAGNOSIS: Hallux abductovalgus deformity of the right foot with associated neuralgia and neuritis. TITLE OF OPERATION: Modified Amarjit bunionectomy of the right foot. ANESTHESIA: General endotracheal. HEMOSTASIS: Right thigh tourniquet at 350 mmHg. PROCEDURE IN DETAIL: The patient was taken to the operating room in a mildly sedated state and placed upon the operating table in the supine position. Following induction of general anesthetic, the right lower extremity was elevated to 60 degrees to exsanguinate before inflating the pneumatic thigh tourniquet to 350 mmHg to create hemostasis. Right lower extremity was placed upon the operating table prior to performing the following procedures: Procedure #1: Modified Amarjit bunionectomy of the right foot. An approximately 6 cm dorsal linear incision was made across the dorsal medial aspect of the 1st metatarsophalangeal joint of the right foot. The incision was deepened via sharp and blunt dissection down to the level of the dorsal capsular structure. Care was taken to identify and retract all vital structures encountered. The head of the 1st metatarsal was delivered into the surgical site and remodeled utilizing an oscillating saw and rotary bur. A [id number] V osteotomy was placed with the apex distally and base proximally, which allowed for relative shift lateral-teresa of the head of the more proximal segment. The fibular sesamoid had been released prior to the shift. The head was then packed into the more proximal segment and stabilized with 2 cortical bone screws. A medial eminence further remodeling was performed with an oscillating saw and rotary bur. Irrigated with copious amounts of sterile saline solution. As the wound was evaluated for closure, the area of neuralgia and neuritis was identified with an entrapment of the medial nerve to the 1st digit. This was treated with an associated neurolysis, and the appropriate soft-tissue human tissue allograft was applied to facilitate healing in that area. Deep closure and capsular repair were 3-0 Vicryl, subcutaneous closure with 4-0 Vicryl and skin closure with 4-0 nylon. The areas of surgery were then blocked with 0.5 Marcaine and Decadron [place]. Release of the pneumatic thigh tourniquet showed a normal hyperemic flush to all digits of the right foot. Patient left the operating room with vital signs stable and in apparent satisfactory condition, having tolerated both the anesthetic and procedure very well. Job#: [id number] SINAN
== END | disposition home or self-care (01) ==
LOC: OR 05:31
PROVIDERS: ATTEND Podiatrist Foot Surgery
DX: M20.11 Hallux valgus (acquired), right foot (principal); G58.8 Other specified mononeuropathies; I34.1 Nonrheumatic mitral (valve) prolapse; I25.10 Atherosclerotic heart disease of native coronary artery without angina pectoris; F17.210 Nicotine dependence, cigarettes, uncomplicated; I25.2 Old myocardial infarction; K21.9 Gastro-esophageal reflux disease without esophagitis; Z01.810 Encounter for preprocedural cardiovascular examination; Z01.812 Encounter for preprocedural laboratory examination; Z01.818 Encounter for other preprocedural examination; Z88.1 Allergy status to other antibiotic agents; Z88.5 Allergy status to narcotic agent; Z88.0 Allergy status to penicillin; Z88.8 Allergy status to other drugs, medicaments and biological substances
CPT/HCPCS: 28296; 36415; 71046; 76000; 80048; 85025; 93005; C1713; J1100; J1885; J2001; J2250; J2405; J2704; J2710

== ENCOUNTER 2018-09-15 12:45 | Inpatient (IN) | payer BC ==
[~2018-09-15] VITALS: Ht 172.7 cm; Wt 69.0 kg
[~2018-09-15 12:45] MED LIST changes: -BUPIVACAINE HCL 0.5% INJ 30 ML VIAL INJ ONE; -CLINDAMYCIN PHOS 900MG/ 50ML 50 ML IV ONE; -DEXAMETHASONE SOD PHOS INJ 4 MG/ML VIAL ONE; -FENTANYL CITRATE/PF 100MCG/2 ML INJ ONE; -KETOROLAC TROMETHAMINE 30 MG/ML VIAL ONE; -LIDOCAINE HCL 2% LOCAL INJ 5 ML SDV VIAL INJ ONE; -MIDAZOLAM HCL 2 MG/2 ML VIAL ONE; -NEOSTIGMINE 1 MG/ML 10ML VIAL ONE; -ONDANSETRON HCL INJ 2 MG/ML VIAL ONE; -PROPOFOL IV EMULSION 10 MG/ML 20 ML VIAL ONE; -SEVOFLURANE INHAL SOLN 250 ML PEN BTL ONE
--- OUTSIDE RECORDS SUMMARY | 2018-09-15 12:51 | XMS REPORT | Continuity of Care Document ---
Author Author Joellen henley Organization Interface Address Unknown Phone Unavailable Problems Problem Status Onset Date Classification Date Reported Comments Source Discharge Diagnosis: PALPITATIONS 07/04/2017 07/07/2017 [facility] NAUSEA, BLOOD PRESSURE Active 07/04/2017 [facility] 719.46 - JOINT PAIN-L/LE Active 11/30/2013 MARGARET Hen[facility] 719.41 - JOINT PAIN-SHLD Active 05/05/2013 MARGARET Henley OPEN KNEE WOUND, AUTOPED Active 11/12/2012 [facility] AUTO PED Active 11/12/2012 [facility] Acquired hypothyroidism Resolved Problem 04/22/2013 MARGARET Henley,[facility] [place] Bipolar Resolved Problem 04/22/2013 MARGARET Henley,[facility] [place] Acquired hypothyroidism Resolved Problem 07/07/2017 [facility] [place],[facility] Bipolar Resolved Problem 07/07/2017 [facility] [place] Acquired hypothyroidism Resolved Problem 12/03/2013 [facility] [place], MARGARET Henley Bipolar Resolved Problem 12/03/2013 [facility] [place], [facility] Acquired hypothyroidism Resolved Problem 03/30/2015 [facility] [place], [facility] Bipolar Resolved Problem 03/30/2015 [facility] [place], [facility] Acquired hypothyroidism Resolved Problem 04/01/2013 MARGARET Henley,[facility], [facility] [place] Bipolar Resolved Problem 04/01/2013 MARGARET Henley,[facility], [facility] [place] Acquired hypothyroidism Resolved Problem 01/14/2014 [facility] [place], [facility] [place] Bipolar Resolved Problem 01/14/2014 [facility] [place], [facility] [place] HUMERUS FX Active [facility] [place] OPEN WOUND LEG NEC-COMPL Active [facility] RT GREAT TUBEROSITY FX, LT KNEE PAIN Active [facility] S/P ACL RECONSTRUCTION Active [facility] Medications Medication Details Route Status Patient Instructions Ordering Provider Order Date Source NS (Bolus) IV 1,000 mL, 1,000 ml/hr, Infuse Over: 1 hr, Route: IV, ONCE, Priority: STAT, Dosing Weight 68.182 kg, Start date: 07/04/17 18:04:00 PHOTOSTAT OPERATOR, Stop date: 07/04/17 18:04:00 PHOTOSTAT OPERATOR Inactive 07/05/2017 [facility] Saline Flush 0.9% 10 mL, Route: IVP, Drug Form: INJ, Dosing Weight 65.909, kg, PRN, PRN Line Flush, Start date: 07/04/17 16:51:00 PHOTOSTAT OPERATOR, Duration: 30 day, Stop date: 08/03/17 16:50:00 CSTNotes: (Same as: BD Posiflush) Inactive 07/04/2017 [facility] tramadol 50 mg oral tablet 100 mg, 2 tab, PO, Q6H, PRN, 56 tab, Pain, Substitution Allowed, TAB PO Active Eng 11/16/2012 [facility] senna 8.6 mg oral tablet 17.2 mg, 2 tab, Route: PO, Drug Form: TAB, Dosing Weight 65.909, kg, Bedtime, Start date: 11/15/12 21:00:00, Duration: 30 day, Stop date: 12/14/12 21:00:00 PO No Longer Active Eng 11/16/2012 [facility] calcium carbonate 500 mg, 1 tab, Route: CHEW, Drug form: CHEWTAB, TID, Dosing Weight 65.909, kg, Start date: 11/14/12 17:46:00, Duration: 1 day, Stop date: 11/15/12 17:00:00 CHEW No Longer Active Eng 11/14/2012 [facility] tramadol 100 mg, 2 tab, Route: PO, Drug form: TAB, Q6H, Dosing Weight 65.909, kg, PRN Pain, Start date: 11/14/12 7:44:00, Duration: 30 day, Stop date: 12/14/12 7:43:00 PO No Longer Active Eng 11/14/2012 [facility] NS 1,000 mL 1,000 mL, Rate: 75 ml/hr, Infuse over: 13.3 hr, Route: IV, kg, Total Volume: 1,000, Start date: 11/13/12 12:01:00, Duration: 30 day, Stop date: 12/13/12 12:00:00 IV No Longer Active Eng 11/13/2012 [facility] Protonix 40 mg, Route: IV, Drug form: INJ, Daily, Dosing Weight 65.909, kg, Start date: 11/13/12 11:56:00, Duration: 30 day, Stop date: 12/13/12 9:00:00 IV No Longer Active Eng 11/13/2012 [facility] Synthroid 150 microgram, 1 tab, Route: PO, Drug form: TAB, Daily, Dosing Weight 65.909, kg, Start date: 11/13/12 9:00:00, Duration: 30 day, Stop date: 12/12/12 9:00:00 PO No Longer Active Issa 11/13/2012 [facility] Zofran 4 mg, 2 mL, Route: IV, Drug form: INJ, Q8H, Dosing Weight 65.909, kg, PRN Nausea, Start date: 11/13/12 0:41:00, Duration: 30 day, Stop date: 12/13/12 0:40:00 IV No Longer Active Issa 11/13/2012 [facility] acetaminophen-hydrocodone 325 mg-5 mg oral tablet 1 tab, Route: PO, Drug Form: TAB, Dosing Weight 65.909, kg, Q6H, Start date: 11/13/12 0:00:00, Duration: 30 day, Stop date: 12/12/12 18:00:00 PO No Longer Active Issa 11/13/2012 [facility] Synthroid 150 mcg (0.15 mg) oral tablet 150 microgram, 1 tab, PO, Daily, 30 tab, Substitution Allowed, TAB PO Active Issa 11/13/2012 [facility] docusate 100 mg, 1 cap, Route: PO, Drug form: CAP, BID, Dosing Weight 65.909, kg, Start date: 11/12/12 20:38:00, Duration: 30 day, Stop date: 12/12/12 17:00:00 PO No Longer Active Issa 11/13/2012 [facility] morphine Sulfate 2 mg, 1 mL, Route: IVP, Drug form: INJ, Q4H, Dosing Weight 65.909, kg, PRN Pain Score 7-10, Start date: 11/12/12 20:38:00, Duration: 30 day, Stop date: 12/12/12 20:37:00 IVP No Longer Active Eng 11/13/2012 [facility] acetaminophen-hydrocodone 325 mg-10 mg oral tablet 1 tab, Route: PO, Drug Form: TAB, Dosing Weight 65.909, kg, Q6H, PRN Pain Score 4-6, Start date: 11/12/12 20:38:00, Duration: 30 day, Stop date: 12/12/12 20:37:00 PO No Longer Active Issa 11/13/2012 [facility] Lovenox 30 mg, 0.3 mL, Route: SUB-Q, Drug form: INJ, [id number], Dosing Weight 65.909, kg, Priority: STAT, Start date: 11/12/12 20:02:00, Duration: 30 day, Stop date: 12/12/12 8:02:00 SUB-Q No Longer Active Ran 11/13/2012 [facility] hydrALAZINE 5 mg, 0.25 mL, Route: IVP, Drug form: INJ, Q5Min, Dosing Weight 65.909, kg, PRN Elevated BP, Start date: 11/12/12 17:57:00, Duration: 4 doses or times, Stop date: 11/13/12 0:00:00 IVP No Longer Active [facility] 11/12/2012 [facility] flumazenil 0.2 mg, 2 mL, Route: IVP, Drug form: INJ, PRN, Dosing Weight 65.909, kg, PRN Benzodiazepine Reversal, Initial dose, Start date: 11/12/12 17:57:00, Stop date: 11/13/12 0:00:00 IVP No Longer Active [facility] 11/12/2012 [facility] fentanyl 25 microgram, 0.5 mL, Route: IVP, Drug form: INJ, Q5Min, Dosing Weight 65.909, kg, PRN Pain Score 4-6, Start date: 11/12/12 17:57:00, Duration: 4 doses or times, Stop date: 11/13/12 0:00:00 IVP No Longer Active [facility] 11/12/2012 [facility] naloxone 0.04 mg, 0.1 mL, Route: IVP, Drug form: INJ, Q2MIN, Dosing Weight 65.909, kg, PRN Narcotic Reversal, Start date: 11/12/12 17:57:00, Duration: 8 doses or times, Stop date: 11/13/12 0:00:00 IVP No Longer Active [facility] 11/12/2012 [facility] ondansetron 4 mg, 2 mL, Route: IVP, Drug form: INJ, ONCE, Dosing Weight 65.909, kg, PRN Nausea & Vomiting, Start date: 11/12/12 17:57:00 IVP No Longer Active [facility] 11/12/2012 [facility] labetalol 5 mg, 1 mL, Route: IVP, Drug form: INJ, Q5Min, Dosing Weight 65.909, kg, PRN Elevated BP, Start date: 11/12/12 17:57:00, Duration: 5 doses or times, Stop date: 11/13/12 0:00:00 IVP No Longer Active [facility] 11/12/2012 [facility] Ancef 1 gm, Route: IVPB, Drug form: PDR/INJ, Q8H, Dosing Weight 65.909, kg, Priority: STAT, Start date: 11/12/12 17:24:00, Duration: 30 day, Stop date: 12/12/12 16:00:00 IVPB No Longer Active Mateo 11/12/2012 [facility] hydromorphone 1 mg, Route: IV, ONCE, Dosing Weight 65.909, kg, Start date: 11/12/12 14:00:00, Stop date: 11/12/12 14:00:00 IV No Longer Active Tobin 11/12/2012 [facility] Visipaque 320mg/ml 94 mL, Route: IVP, Drug Form: SOLN, Dosing Weight 65.909, kg, ONCALL, STAT, Start date: 11/12/12 13:03:00, Duration: 1 doses or times, Dose=2.2ml/kg, Max byhz=776td -- "To be infused by Radiology Staff ONLY"Dose=2.2ml/kg, Max jqct=766bs -- "To be infused by Radiology Staff ONLY" IVP No Longer Active Ruthie 11/12/2012 [facility] methylene blue 10 mg/mL injectable solution Route: INTRASYNOVIAL, Drug form: INJ, ONCE, Dosing Weight 65.909, kg, Priority: STAT, Start date: 11/12/12 11:38:00, Stop date: 11/12/12 11:38:00, 1 vial1 vial INTRASYNOVIAL No Longer Active Tobin 11/12/2012 [facility] cefazolin 1 gm, Route: IV, Drug form: PDR/INJ, ONCE, Dosing Weight 65.909, kg, Patients weighing IV No Longer Active Tobin 11/12/2012 [facility] ondansetron 4 mg, 2 mL, Route: IVP, Drug form: INJ, ONCE, Dosing Weight 65.909, kg, Priority: STAT, Start date: 11/12/12 11:36:00, Stop date: 11/12/12 11:36:00 IVP No Longer Active Tobin 11/12/2012 [facility] morphine Sulfate 5 mg, 1.25 mL, Route: IVP, Drug form: INJ, ONCE, Dosing Weight 65.909, kg, Priority: STAT, Start date: 11/12/12 11:36:00, Stop date: 11/12/12 11:36:00 IVP No Longer Active Tobin 11/12/2012 [facility] Saline Flush 0.9% 5 mL, Route: IVP, Drug Form: INJ, Dosing Weight 65.909, kg, PRN, PRN Line Flush, Start date: 11/12/12 11:36:00, Duration: 30 day, Stop date: 12/12/12 11:35:00 IVP No Longer Active Tobin 11/12/2012 [facility] Sodium Chloride 0.9% (Bolus) IV 1,000 mL 1,000 mL, Rate: 1,000 ml/hr, Infuse over: 1 hr, Route: IV, Total Volume: 1,000, Priority: STAT, Start date: 11/12/12 11:36:00, Duration: 1 doses or times, Stop date: 11/12/12 12:35:00 IV No Longer Active Tobin 11/12/2012 [facility] Tdap 0.5 mL, Route: IM, Drug Form: INJ, Dosing Weight 65.909, kg, ONCE, STAT, Start date: 11/12/12 11:36:00, Stop date: 11/12/12 11:36:00(Tdap ) For Adolecent and Adult use For IM Use. Same as: Adacel (Tdap) Inactive Tobin 11/12/2012 MARGARET Henley,[facility] Tdap 0.5 mL, Route: IM, Drug Form: INJ, Dosing Weight 65.909, kg, ONCE, STAT, Start date: 11/12/12 11:36:00, Stop date: 11/12/12 11:36:00(Tdap ) For Adolecent and Adult use For IM Use. Same as: Adacel (Tdap) Inactive Tobin 11/12/2012 MARGARET Henley,[facility] [place],[facility] Allergies, Adverse Reactions, Alerts Substance Category Reaction Severity Reaction type Status Date Reported Comments Source codeine Assertion Drug allergy Active [facility] Lodine Assertion Drug allergy Active [facility] penicillins Assertion Drug allergy Active [facility] Immunizations Immunization Date Given Site Status Last Updated Comments Source diphtheria/pertussis, acel/tetanus adult 11/12/2012 Left Deltoid completed Mitch Espinal [facility] diphtheria/pertussis, acel/tetanus adult 11/12/2012 completed Mitch Espinal MARGARET Henley,[facility] diphtheria/pertussis, acel/tetanus adult 11/12/2012 completed Mitch Espinal [facility] [place],[facility] Results Order Name Results Value Reference Range Date Interpretation Comments Source CARDIAC ENZYMES Total CK 55 unit/L 12 - 191 07/04/2017 [facility] CARDIAC ENZYMES CK MB null 0.5 - 3.6 07/04/2017 [facility] CARDIAC ENZYMES Troponin-I null 0.00 - 0.40 07/04/2017 [facility] CARDIAC ENZYMES CK MB Index null 0.0 - 2.5 07/04/2017 [facility] CHEM PANEL Magnesium Lvl 2.3 mg/dL 1.8 - 2.4 07/04/2017 [place] CHEM PANEL Phosphorus 2.8 mg/dL 2.5 - 4.5 07/04/2017 [facility] CHEM PANEL eGFR 75 mL/min/1.73m2 07/04/2017 Result Comment: The eGFR is calculated using the [...] from the National Kidney Disease Education Program (NKDEP) which additionally recommends that when the eGFR is used in patients with extremes of body mass index for purposes of drug dosing, the eGFR should be multiplied by the estimated BMI. [place] CHEM PANEL AGAP 11.7 meq/L 10.0 - 20.0 07/04/2017 [facility] CHEM PANEL Chloride Lvl 108 meq/L 95 - 109 07/04/2017 [facility]M PANEL Sodium Lvl 140 meq/L 135 - 145 07/04/2017 [facility]M PANEL Potassium Lvl 3.7 meq/L 3.5 - 5.1 07/04/2017 [facility] CHEM PANEL Calcium Lvl 9.0 mg/dL 8.5 - 10.5 07/04/2017 [facility] CHEM PANEL CO2 24 meq/L 24 - 32 07/04/2017 [facility] PAN[facility] Globulin 4.4 g/dL 2.7 - 4.2 07/04/2017 [facility] PAN[facility] B/C Ratio 18 6 - 25 07/04/2017 [facility] PAN[facility] A/G Ratio 0.9 0.7 - 1.6 07/04/2017 [facility] CHEM PANEL Total Protein 8.3 g/dL 6.4 - 8.4 07/04/2017 [facility] CHEM PANEL Albumin Lvl 3.9 g/dL 3.5 - 5.0 07/04/2017 [facility] CHEM PANEL AST 12 unit/L 0 - 37 07/04/2017 [facility] CHEM PANEL ALT 22 unit/L 0 - 65 07/04/2017 [facility] CHEM PANEL Bili Total 0.2 mg/dL 0.2 - 1.3 07/04/2017 [facility] CHEM PANEL Alk Phos 102 unit/L 39 - 136 07/04/2017 [facility] CHEM PANEL Creatinine Lvl 0.88 mg/dL 0.50 - 1.40 07/04/2017 [facility] CHEM PANEL BUN 16 mg/dL 7 - 22 07/04/2017 [facility] CHEM PANEL Glucose Lvl 112 mg/dL 70 - 99 07/04/2017 [facility] DRUG SCREEN U Gely Scr Negative *NA* (07/04/17 5:28 PM) Negative 07/04/2017 [facility] DRUG SCREEN U Amph Scr Negative *NA* (07/04/17 5:28 PM) Negative 07/04/2017 [facility] DRUG SCREEN U Benzodia Scr Negative *NA* (07/04/17 5:28 PM) Negative 07/04/2017 [facility] DRUG SCREEN U Phencyc Scr Negative *NA* (07/04/17 5:28 PM) Negative 07/04/2017 [facility] DRUG SCREEN UDS Note See Note (07/04/17 5:28 PM) 07/04/2017 [facility] DRUG SCREEN U Cocaine Scr Negative *NA* (07/04/17 5:28 PM) Negative 07/04/2017 [facility] DRUG SCREEN U Cannab Scr Negative *NA* (07/04/17 5:28 PM) Negative 07/04/2017 [facility] DRUG SCREEN U Opiate Scr Negative *NA* (07/04/17 5:28 PM) Negative 07/04/2017 [facility] HEMATOLOGY MPV 8.1 fL 7.4 - 10.4 07/04/2017 [facility] HEMATOLOGY Platelet 381 K/CMM 133 - 450 07/04/2017 [facility] HEMATOLOGY WBC 14.3 K/CMM 3.7 - 10.4 07/04/2017 [facility] HEMATOLOGY MCV 91.7 fL 80.0 - 98.0 07/04/2017 [facility] HEMATOLOGY Hct 44.5 % 36.0 - 48.0 07/04/2017 [facility] HEMATOLOGY Hgb 15.0 g/dL 12.0 - 16.0 07/04/2017 [facility] HEMATOLOGY RBC 4.85 M/CMM 4.20 - 5.40 07/04/2017 [facility] HEMATOLOGY RDW 15.0 % 11.5 - 14.5 07/04/2017 [facility] HEMATOLOGY MCHC 33.6 g/dL 32.0 - 36.0 07/04/2017 [facility] HEMATOLOGY MCH 30.8 pg 27.0 - 31.0 07/04/2017 [facility] HEMATOLOGY Lymphocytes # 3.1 K/CMM 1.0 - 5.5 07/04/2017 [facility] HEMATOLOGY Basophils 0.8 % 0.0 - 1.0 07/04/2017 [facility] HEMATOLOGY Monocytes # 0.5 K/CMM 0.0 - 0.8 07/04/2017 [facility] HEMATOLOGY Segs-Bands # 10.3 K/CMM 1.5 - 8.1 07/04/2017 [facility] HEMATOLOGY Basophils # 0.1 K/CMM 0.0 - 0.2 07/04/2017 [facility] HEMATOLOGY Eosinophils # 0.3 K/CMM 0.0 - 0.5 07/04/2017 [facility] HEMATOLOGY Eosinophils 2.0 % 0.0 - 4.0 07/04/2017 [facility] HEMATOLOGY Monocytes 3.3 % 2.0 - 12.0 07/04/2017 [facility] HEMATOLOGY Lymphocytes 21.7 % 20.0 - 40.0 07/04/2017 [facility] HEMATOLOGY Segs 72.2 % 45.0 - 75.0 07/04/2017 [facility] URINE AND STOOL UA Color Ltyellow 07/04/2017 [facility] URINE AND STOOL UA Urobilinogen <=1.0 mg/dL 0.1 - 1.0 07/04/2017 [facility] URINE AND STOOL UA Sq Epi Occasional /LPF Few /LPF 07/04/2017 [facility] URINE AND STOOL UA WBC 3 /HPF 0 - 5 07/04/2017 [facility] URINE AND STOOL UA RBC 1 /HPF 0 - 2 07/04/2017 [facility] URINE AND STOOL UA Blood Small *ABN* (07/04/17 5:28 PM) Negative 07/04/2017 [facility] URINE AND STOOL UA Nitrite Negative (07/04/17 5:28 PM) Negative 07/04/2017 [facility] URINE AND STOOL UA Leuk Est Large *ABN* (07/04/17 5:28 PM) Negative 07/04/2017 [facility] URINE AND STOOL UA Bili Negative *NA* (07/04/17 5:28 PM) Negative 07/04/2017 [place] URINE AND STOOL UA pH 7.0 5.0 - 8.0 07/04/2017 [facility] URINE AND STOOL UA Protein Negative mg/dL Negative mg/dL 07/04/2017 [facility] URINE AND STOOL UA Glucose Negative mg/dL Negative mg/dL 07/04/2017 [facility] URINE AND STOOL UA Ketones Negative mg/dL Negative mg/dL 07/04/2017 [facility] URINE AND STOOL UA Turbidity Clear (07/04/17 5:28 PM) Clear 07/04/2017 [facility] URINE AND STOOL UA Spec Grav 1.002 <=1.030 07/04/2017 [facility] Chest 1view DX Chest 1view DX Clinical Indication: - shortness of breath; Comparison: None Technique: X-ray chest frontal projection FINDINGS: There is no consolidation, pleural effusion or pneumothorax. The heart is normal in size. The mediastinum and pawel are unremarkable. The visualized bones and soft tissues are within normal limits. IMPRESSION: No chest radiographic evidence of acute cardiopulmonary disease. SL: GEOVANNI 07/04/2017 - - Read by: Jud Tabares MD Dictated Date/time: 07/04/17 18:17 Electronically Signed by: Jdu Tabares MD 07/04/17 18:20 FINAL REPORT [facility] Knee wo contrast MRI Knee wo contrast MRI EXAM: MRI of the left knee without contrast. HISTORY: Left knee pain COMPARISON: X-rays on 11/30/2013, MRI on 06/27/2013 TECHNIQUE: Multiplanar, multisequence MRI of the left knee without contrast. FINDINGS: Intercondylar notch: The anterior and posterior cruciate ligaments are intact. Collateral ligaments: The medial and lateral collateral ligaments are intact. Medial compartment: The medial meniscus is intact. Again seen is a small focus of cartilage loss along the far posterior medial femoral condyle. There is no subchondral marrow edema in the medial compartment. Lateral compartment: There is slight intrasubstance degeneration in the body of the lateral meniscus. There is no lateral meniscal tear. There is no chondral defect or subchondral marrow edema in the lateral compartment. The posteromedial and posterolateral corner structures are intact. Patellofemoral compartment: The patellar and quadriceps tendons are intact. There is no chondral defect or subchondral marrow edema in the patellofemoral compartment. There is no soft tissue edema in Hoffa's fat-pad. Other findings: There is trace physiologic fluid in the knee joint. No osteochondral body is seen. No muscle tear or strain is seen. IMPRESSION: 1. No ligament tear or sprain. 2. Slight intrasubstance degeneration in the body of the lateral meniscus. No meniscal tear. 3. Small focus of cartilage loss again seen along the far posterior medial femoral condyle. 4. No bone marrow edema. 01/11/2014 - - Read by: Carlo Heard MD Dictated Date/time: 01/11/14 13:50 Electronically Signed by: Carlo Heard MD 01/11/14 15:33 FINAL REPORT [facility] [place] Knee 3 views Knee 3 views EXAM: XR LEFT KNEE 3 VIEWS DATE: 11/30/2013 INDICATION: pain COMPARISON: 06/24/2013 TECHNIQUE: 3 views of the left knee DISCUSSION: No acute fracture or malalignment is identified. There is no excessive joint fluid. No soft tissue abnormality is identified. IMPRESSION: No abnormality identified. 11/30/2013 - - This report was dictated by a Director Outpatient Services/Fellow. I have personally reviewed the images as well as the Resident's interpretation and agree with the findings. Read by: Ketan Ybarra MD Resident: Ketan Ybarra MD Dictated Date/time: 11/30/13 13:20 Electronically Signed by: Kvng Irby MD 12/01/13 09:34 FINAL REPORT [facility] Knee wo contrast MRI Knee wo contrast MRI EXAM: MRI of the left knee without contrast. HISTORY: Left knee pain, possible medial meniscal tear COMPARISON: X-rays on 06/24/2013 TECHNIQUE: Utilizing a high-field MRI and 8 channel knee coil, the following sequences were acquired: sagittal PD and PD FS, coronal PD and PD FS, and axial PD FS. FINDINGS: Intercondylar notch: The anterior and posterior cruciate ligaments are intact. Collateral ligaments: The medial and lateral collateral ligaments are intact. Medial compartment: The medial meniscus is intact. There is a small 4 x 3 mm focus of cartilage loss along the far posterior medial femoral condyle on axial image 17. There is no subchondral bone marrow edema in the medial compartment. Lateral compartment: There is slight intrasubstance degeneration in the body of the lateral meniscus. The lateral meniscus is intact. There is no chondral defect or subchondral bone marrow edema in the lateral compartment. The posteromedial and posterolateral corner structures are intact. Patellofemoral compartment: The patellar and quadriceps tendons are intact. There is no chondral defect or subchondral bone marrow edema in the patellofemoral compartment. There is no soft tissue edema in Hoffa's fat-pad. Other findings: There is trace physiologic fluid in the knee joint. No osteochondral body is seen. No muscle tear or strain is seen. IMPRESSION: 1. No ligament or meniscal tear. 2. Small 4 x 3 mm focus of cartilage loss along the far posterior medial femoral condyle. 3. No bone marrow edema. 4. Trace physiologic fluid in the knee joint. 06/27/2013 - - Read by: Carlo Heard Dictated Date/time: 06/27/13 14:17 Electronically Signed by: Carlo Heard MD 06/27/13 14:35 FINAL REPORT [facility] [place] Knee 4+ views unilateral Knee 4+ views unilateral EXAM: LEFT KNEE, 4 VIEWS DATE: Jun 24, 2013 09:15:00 AM: INDICATION: 719.46 Pain in Joint Involving Lower Leg COMPARISON: Left knee radiographs of 11/12/2012 TECHNIQUE: 4 views of the left knee are submitted for interpretation. COMMENTS: No fracture, dislocation or other acute bony abnormality is identified. No soft tissue abnormality is identified. IMPRESSION: No abnormality identified. 06/24/2013 - - This report was dictated by a Director Outpatient Services/Fellow. I have personally reviewed the images as well as the Resident's interpretation and agree with the findings. Read by: Jr Campbell Resident: Jr Campbell Dictated Date/time: 06/24/13 09:20 Electronically Signed by: Sandeep Sarmiento MD 06/24/13 12:42 FINAL REPORT [facility] Shoulder series Shoulder series EXAM: XR RIGHT SHOULDER 3 VIEWS DATE: May 06, 2013, 8:39 a.m. INDICATION: 719.41 Pain in Joint Involving Shoulder Region. COMPARISON: Shoulder radiographs from March 30, 2013 and November 12, 2012 TECHNIQUE: 3 views of the right shoulder DISCUSSION: A healed fracture of the greater tuberosity of the humerus. Mild residual irregularity is present at the site of prior fracture. Two circular lucencies in the proximal humerus represents site of biceps tenodesis. No acute fracture or malalignment is identified. No soft tissue abnormality is identified. IMPRESSION: 1. Interval biceps tenodesis. 2. Healed humeral greater tuberosity fracture with mild residual irregularity at the site of prior fracture. 05/06/2013 - - This report was dictated by a Director Outpatient Services/Fellow. I have personally reviewed the images as well as the Resident's interpretation and agree with the findings. Read by: Jarvis Crocker Resident: Jarvis Crocker Dictated Date/time: 05/06/13 09:01 Electronically Signed by: Ro Louise MD 05/06/13 18:58 FINAL REPORT [facility] [place] Shoulder w contrast MRI Shoulder w contrast MRI Examination: MR arthrogram of the right shoulder History: 812.00 Fracture of Unspecified Part of Upper End of Humerus, Closed Comparison: Plain films of the right shoulder from 03/23/2013. TECHNIQUE: Multiplanar, multisequence magnetic resonance imaging of the right shoulder was performed following the intra-articular administration of gadolinium contrast utilizing a 1.5 Kalie MRI. Findings: Glenohumeral joint: Negative for acute bony fracture or joint dislocation. Intra-articular contrast distends the glenohumeral joint. No labral tear or capsular abnormality is seen. There is no high-grade chondral defect of the humeral head or glenoid fossa. Mild chronic-appearing osseous remodeling of the greater tuberosity at the supraspinatous tendon insertion is seen with mild underlying cystic changes, compatible with remote healed fracture. Osseous acromion complex: The acromion is type II in morphology and shows horizontal orientation without significant narrowing of the supraspinatus outlet. No os acromiale is seen. Mild AC joint osteoarthrosis is noted. Rotator cuff tendons: Mild rotator cuff tendinosis is seen. Negative for rotator cuff tear. Biceps tendon: Intact and without subluxation or dislocation. Soft tissues: No extracapsular mass or cystic fluid collection is seen. No muscular atrophy or denervation edema is noted. IMPRESSION: 1. Mild rotator cuff tendinosis. Negative for rotator cuff tear. 2. Negative for labral tear. 3. Mild AC joint osteoarthrosis. 4. Remote healed fracture of the greater tuberosity. 03/30/2013 - - Read by: Lyle Islas Dictated Date/time: 03/30/13 16:42 Electronically Signed by: Lyle Islas MD 03/30/13 16:48 FINAL REPORT [facility] [place] Shoulder arthrogram Shoulder arthrogram Right shoulder arthrogram. Clinical History: Pain. Fluoro time: 0.3 minutes Comparison: None. Findings: The right shoulder was prepped and draped in the usual sterile fashion after obtaining consent from the patient. 1% lidocaine without epinephrine was used for local anesthesia. Under fluoroscopic guidance, a 22 gauge needle was introduced into the right shoulder joint. Approximately 10 cc of a mixture of gadolinium and Omnipaque-300 was infused. The needle was removed and there were no immediate complications. Patient was taken to the MR suite for MR arthrogram. Impression: 1. Intraarticular gadolinium injection of the right shoulder for MR arthrogram. 03/30/2013 - - Read by: Lyle Islas Dictated Date/time: 03/30/13 16:43 Electronically Signed by: Lyle Islas MD 03/30/13 16:45 FINAL REPORT [facility] [place] Shoulder series Shoulder series EXAM: XR RIGHT SHOULDER 5 VIEWS DATE: 03/23/2013 at 1020 hours. INDICATION: 719.41 Pain in Joint Involving Shoulder Region. COMPARISON: XR right shoulder 11/12/2012. TECHNIQUE: 5 views of the right shoulder DISCUSSION: There is bone remodeling of the greater tuberosity of the humerus fracture with the fracture line still faintly evident. The glenohumeral joint remains aligned. A tiny bone fragment projects superior to the fracture site, with the subacromial space preserved. IMPRESSION: Partial interim healing of the greater tuberosity fracture, with the fracture line less well seen. 03/23/2013 - - This report was dictated by a Director Outpatient Services/Fellow. I have personally reviewed the images as well as the Resident's interpretation and agree with the findings. Read by: Linden Still Resident: Linden Still Dictated Date/time: 03/23/13 10:51 Electronically Signed by: Ro Louise MD 03/23/13 15:31 FINAL REPORT [facility] [place] CHEMISTRY eGFR 102 mL/min/1.73m2 11/16/2012 NA 1Result Comment: The eGFR is calculated using [...] from the National Kidney Disease Education Program (NKDEP) which additionally recommends that when the eGFR is used in patients with extremes of body mass index for purposes of drug dosing, the eGFR should be multiplied by the estimated BMI. [facility] CHEMISTRY Sodium Lvl 142 meq/L 135 - 145 11/16/[address] [facility] CHEMISTRY B/C Ratio 17 6 - 25 11/16/[address] [facility] CHEMISTRY AGAP 16.2 meq/L 10.0 - 20.0 11/16/[address] [facility] CHEMISTRY CO2 25 meq/L 24 - 32 11/16/[address] [facility] CHEMISTRY Calcium Lvl 8.7 mg/dL 8.5 - 10.5 11/16/[address] [facility] CHEMISTRY Chloride Lvl 105 meq/L 95 - 109 11/16/[address] [facility] CHEMISTRY Potassium Lvl 4.2 meq/L 3.5 - 5.1 11/16/[address] [facility] CHEMISTRY AST 36 unit/L 0 - 37 11/16/[address] [facility] CHEMISTRY Globulin 2.8 g/dL 2.0 - 4.0 11/16/[address] [facility] CHEMISTRY A/G Ratio 1.1 0.7 - 1.6 11/16/[address] [facility] CHEMISTRY Total Protein 6.0 g/dL 6.4 - 8.4 11/16/[address] [facility] CHEMISTRY Bili Total 0.3 mg/dL 0.2 - 1.3 11/16/[address] [facility] CHEMISTRY BUN 12 mg/dL 7 - 22 11/16/[address] [facility] CHEMISTRY Creatinine Lvl 0.7 mg/dL 0.5 - 1.4 11/16/[address] [facility] CHEMISTRY Glucose Lvl 103 mg/dL 70 - 99 11/16/2012 HI 4Interpretive Data: Adult reference range values reflect the clinical guidelines of the [place] [employer]. [facility] CHEMISTRY Albumin Lvl 3.2 g/dL 3.5 - 5.0 11/16/[address] [facility] CHEMISTRY ALT 101 unit/L 0 - 65 11/16/[address] [facility] CHEMISTRY Alk Phos 97 unit/L 39 - 136 11/16/[address] [facility] CHEMISTRY Globulin 2.7 g/dL 2.0 - 4.0 11/15/[address] [facility] CHEMISTRY B/C Ratio 24 6 - 25 11/15/[address] [facility] CHEMISTRY AGAP 14.4 meq/L 10.0 - 20.0 11/15/[address] [facility] CHEMISTRY A/G Ratio 1.2 0.7 - 1.6 11/15/[address] [facility] CHEMISTRY eGFR 114 mL/min/1.73m2 11/15/2012 NA 2Result Comment: The eGFR is calculated using [...] from the National Kidney Disease Education Program (NKDEP) which additionally recommends that when the eGFR is used in patients with extremes of body mass index for purposes of drug dosing, the eGFR should be multiplied by the estimated BMI. [facility] CHEMISTRY Glucose Lvl 88 mg/dL 70 - 99 11/15/2012 Normal 5Interpretive Data: Adult reference range values reflect the clinical guidelines of the [place] [employer]. [facility] CHEMISTRY Alk Phos 99 unit/L 39 - 136 11/15/[address] [facility] CHEMISTRY Sodium Lvl 141 meq/L 135 - 145 11/15/[address] [facility] CHEMISTRY Creatinine Lvl 0.5 mg/dL 0.5 - 1.4 11/15/[address] [facility] CHEMISTRY BUN 12 mg/dL 7 - 22 11/15/[address] [facility] CHEMISTRY Albumin Lvl 3.2 g/dL 3.5 - 5.0 11/15/[address] [facility] CHEMISTRY ALT 149 unit/L 0 - 65 11/15/[address] [facility] CHEMISTRY CO2 24 meq/L 24 - 32 11/15/[address] [facility] CHEMISTRY Chloride Lvl 107 meq/L 95 - 109 11/15/2012 [facility] CHEMISTRY Potassium Lvl 4.4 meq/L 3.5 - 5.1 11/15/2012 [facility] CHEMISTRY AST 66 unit/L 0 - 37 11/15/2012 [facility] CHEMISTRY Total Protein 5.9 g/dL 6.4 - 8.4 11/15/2012 [facility] CHEMISTRY Calcium Lvl 8.2 mg/dL 8.5 - 10.5 11/15/2012 [facility] CHEMISTRY Bili Total 0.3 mg/dL 0.2 - 1.3 11/15/2012 [facility] HEMATOLOGY Hgb 10.7 g/dL 12.0 - 16.0 11/15/2012 [facility] HEMATOLOGY RBC 3.39 M/CMM 4.20 - 5.40 11/15/2012 [facility] HEMATOLOGY WBC 7.0 K/CMM 3.7 - 10.4 11/15/2012 [facility] HEMATOLOGY RDW 13.5 % 11.5 - 14.5 11/15/2012 [facility] HEMATOLOGY MCHC 33.9 g/dL 32.0 - 36.0 11/15/2012 [facility] HEMATOLOGY MCH 31.5 pg 27.0 - 31.0 11/15/2012 [facility] HEMATOLOGY MCV 93.1 fL 81.0 - 99.0 11/15/2012 [facility] HEMATOLOGY MPV 8.2 fL 7.4 - 10.4 11/15/2012 [facility] HEMATOLOGY Platelet 230 K/CMM 133 - 450 11/15/2012 [facility] HEMATOLOGY Hct 31.6 % 36.0 - 48.0 11/15/2012 [facility] HEMATOLOGY Segs-Bands # 3.7 K/CMM 1.5 - 8.1 11/15/2012 [facility] HEMATOLOGY Basophils 0.8 % 0.0 - 1.0 11/15/2012 [facility] HEMATOLOGY Basophils # 0.1 K/CMM 0.0 - 0.2 11/15/2012 [facility] HEMATOLOGY Eosinophils # 0.3 K/CMM 0.0 - 0.5 11/15/[address] [facility] HEMATOLOGY Monocytes 10.3 % 2.0 - 12.0 11/15/[address] [facility] HEMATOLOGY Lymphocytes 31.0 % 20.0 - 40.0 11/15/2012 [facility] HEMATOLOGY Eosinophils 4.7 % 0.0 - 4.0 11/15/2012 [facility] HEMATOLOGY Lymphocytes # 2.2 K/CMM 1.0 - 5.5 11/15/2012 [facility] HEMATOLOGY Segs 53.2 % 45.0 - 75.0 11/15/2012 [facility] HEMATOLOGY Monocytes # 0.7 K/CMM 0.0 - 0.8 11/15/2012 [facility] CHEMISTRY AGAP 13.1 meq/L 10.0 - 20.0 11/14/2012 [facility] CHEMISTRY AST 120 unit/L 0 - 37 11/14/2012 [facility] CHEMISTRY Total Protein 6.1 g/dL 6.4 - 8.4 11/14/2012 [facility] CHEMISTRY B/C Ratio 20 6 - 25 11/14/2012 [facility] CHEMISTRY CO2 25 meq/L 24 - 32 11/14/2012 [facility] CHEMISTRY Chloride Lvl 107 meq/L 95 - 109 11/14/2012 [facility] CHEMISTRY Calcium Lvl 7.9 mg/dL 8.5 - 10.5 11/14/2012 [facility] CHEMISTRY Bili Total 0.3 mg/dL 0.2 - 1.3 11/14/2012 [facility] CHEMISTRY Potassium Lvl 4.1 meq/L 3.5 - 5.1 11/14/2012 [facility] CHEMISTRY eGFR 107 mL/min/1.73m2 11/14/2012 NA 3Result Comment: The eGFR is calculated using [...] from the National Kidney Disease Education Program (NKDEP) which additionally recommends that when the eGFR is used in patients with extremes of body mass index for purposes of drug dosing, the eGFR should be multiplied by the estimated BMI. [facility] CHEMISTRY Globulin 2.7 g/dL 2.0 - 4.0 11/14/[address] [facility] CHEMISTRY A/G Ratio 1.3 0.7 - 1.6 11/14/[address] [facility] CHEMISTRY Sodium Lvl 141 meq/L 135 - 145 11/14/[address] [facility] CHEMISTRY Creatinine Lvl 0.6 mg/dL 0.5 - 1.4 11/14/[address] [facility] CHEMISTRY BUN 12 mg/dL 7 - 22 11/14/[address] [facility] CHEMISTRY Alk Phos 111 unit/L 39 - 136 11/14/[address] [facility] CHEMISTRY ALT 227 unit/L 0 - 65 11/14/[address] [facility] CHEMISTRY Glucose Lvl 91 mg/dL 70 - 99 11/14/2012 Normal 6Interpretive Data: Adult reference range values reflect the clinical guidelines of the [place] [employer]. [facility] CHEMISTRY Albumin Lvl 3.4 g/dL 3.5 - 5.0 11/14/[address] [facility] CHEMISTRY Lipase Lvl 71 unit/L 73 - 393 11/13/[address] [facility] CHEMISTRY Bili Indirect 0.3 mg/dL 0.0 - 1.0 11/13/[address] [facility] CHEMISTRY Bili Direct 0.1 mg/dL 0.0 - 0.3 11/13/[address] [facility] IMMUNOLOGY Hep A IgM Negative *NA* (11/13/2012 10:09:01) Negative 11/13/[address] [facility] IMMUNOLOGY Hep Bs Ag Negative *NA* (11/13/2012 10:09:01) Negative 11/13/[address] [facility] IMMUNOLOGY Hep B Core IgM Negative *NA* (11/13/2012 10:09:01) Negative 11/13/[address] [facility] IMMUNOLOGY Hep C Ab Negative *NA* (11/13/2012 10:09:01) Negative 11/13/[address] [facility] IMMUNOLOGY CDC-HIV 1/2 Ab Negative *NA* (11/13/2012 04:49:16) Negative 11/13/2012 [facility] CHEMISTRY Phosphorus 3.5 mg/dL 2.5 - 4.5 11/13/2012 [facility] CHEMISTRY Magnesium Lvl 2.1 mg/dL 1.8 - 2.4 11/13/2012 [facility] HEMATOLOGY MCH 31.0 pg 27.0 - 31.0 11/13/2012 [facility] HEMATOLOGY MCHC 33.3 g/dL 32.0 - 36.0 11/13/2012 [facility] HEMATOLOGY MCV 93.0 fL 81.0 - 99.0 11/13/2012 [facility] HEMATOLOGY Hgb 12.0 g/dL 12.0 - 16.0 11/13/2012 [facility] HEMATOLOGY Hct 35.9 % 36.0 - 48.0 11/13/2012 [facility] HEMATOLOGY WBC 9.9 K/CMM 3.7 - 10.4 11/13/2012 [facility] HEMATOLOGY RBC 3.86 M/CMM 4.20 - 5.40 11/13/2012 [facility] HEMATOLOGY MPV 7.8 fL 7.4 - 10.4 11/13/2012 [facility] HEMATOLOGY Platelet 256 K/CMM 133 - 450 11/13/2012 [facility] HEMATOLOGY RDW 14.1 % 11.5 - 14.5 11/13/2012 [facility] HEMATOLOGY Monocytes # 0.5 K/CMM 0.0 - 0.8 11/13/2012 [facility] HEMATOLOGY Segs-Bands # 8.8 K/CMM 1.5 - 8.1 11/13/2012 [facility] HEMATOLOGY Basophils 0.1 % 0.0 - 1.0 11/13/2012 [facility] HEMATOLOGY Monocytes 5.5 % 2.0 - 12.0 11/13/2012 [facility] HEMATOLOGY Lymphocytes 5.2 % 20.0 - 40.0 11/13/2012 [facility] HEMATOLOGY Segs 89.2 % 45.0 - 75.0 11/13/2012 [facility] HEMATOLOGY Lymphocytes # 0.5 K/CMM 1.0 - 5.5 11/13/2012 [facility] URINALYSIS UA Color Green *ABN* (11/13/2012 01:07:58) Yellow 11/13/[address] [facility] URINALYSIS UA Gran Cast 3 /LPF 11/13/[address] [facility] URINALYSIS UA Urobilinogen <=1.0 mg/dL
*NA*
(11/13/2012 01:07:58) <sup> </sup> 0.1 - 1.0 11/13/[address] [facility] URINALYSIS UA Spec Grav >=1.050 *ABN* (11/13/2012 01:07:58) <=1.030 11/13/[address] [facility] URINALYSIS Micro? Performed *NA* (11/13/2012 01:07:58) 11/13/[address] [facility] URINALYSIS UA Bacteria Few /HPF *NA* (11/13/2012 01:07:58) None Seen 11/13/[address] [facility] URINALYSIS UA Mucus Few /LPF *NA* (11/13/2012 01:07:58) None Seen 11/13/[address] [facility] URINALYSIS UA Hyal Cast 5 /LPF 0 - 2 11/13/2012 [facility] URINALYSIS UA RBC 10 /HPF 0 - 2 11/13/[address] [facility] URINALYSIS UA WBC 3 /HPF 0 - 5 11/13/[address] [facility] URINALYSIS UA Nitrite Negative (11/13/2012 01:07:58) Negative 11/13/[address] [facility] URINALYSIS UA Ketones Negative mg/dL *NA* (11/13/2012 01:07:58) Negative 11/13/[address] [facility] URINALYSIS UA Glucose Negative mg/dL *NA* (11/13/2012 01:07:58) Negative 11/13/[address] [facility] URINALYSIS UA Protein 30 mg/dL *ABN* (11/13/2012 01:07:58) Negative 11/13/[address] [facility] URINALYSIS UA pH 6.0 5.0 - 8.0 11/13/[address] [facility] URINALYSIS UA Turbidity Slight *ABN* (11/13/2012 01:07:58) Clear 11/13/[address] [facility] URINALYSIS UA Sq Epi Many /LPF *ABN* (11/13/2012 01:07:58) Few 11/13/[address] [facility] URINALYSIS UA Leuk Est Negative (11/13/2012 01:07:58) Negative 11/13/[address] [facility] URINALYSIS UA Blood Trace *ABN* (11/13/2012 01:07:58) Negative 11/13/[address] [facility] URINALYSIS UA Bili Negative *NA* (11/13/2012 01:07:58) Negative 11/13/[address] [facility] CHEMISTRY HCO3 Satya 24 mMol/L 22 - 26 11/13/[address] [facility] CHEMISTRY pO2 Satya 165 mm[Hg] 20 - 49 11/13/2012 [facility] CHEMISTRY O2 Sat Satya 99.3 % 40.0 - 70.0 11/13/2012 [facility] CHEMISTRY BE Satya -4 mMol/L -2-2 - 2 11/13/2012 [facility] CHEMISTRY Temp Satya 37.0 Elin 11/13/[address] [facility] CHEMISTRY pH Satya 7.26 7.28 - 7.42 11/13/[address] [facility] CHEMISTRY pCO2 Satya 53 mm[Hg] 38 - 52 11/13/2012 [facility] HEMATOLOGY Basophils 0.3 % 0.0 - 1.0 11/12/[address] [facility] HEMATOLOGY Segs-Bands # 7.0 K/CMM 1.5 - 8.1 11/12/2012 [facility] HEMATOLOGY Lymphocytes # 1.7 K/CMM 1.0 - 5.5 11/12/[address] [facility] HEMATOLOGY Eosinophils # 0.3 K/CMM 0.0 - 0.5 11/12/[address] [facility] HEMATOLOGY Monocytes # 0.8 K/CMM 0.0 - 0.8 11/12/[address] [facility] HEMATOLOGY Basophils # 0.0 K/CMM 0.0 - 0.2 11/12/2012 [facility] HEMATOLOGY Eosinophils 3.0 % 0.0 - 4.0 11/12/2012 [facility] HEMATOLOGY Monocytes 7.9 % 2.0 - 12.0 11/12/2012 [facility] HEMATOLOGY Lymphocytes 17.4 % 20.0 - 40.0 11/12/[address] [facility] HEMATOLOGY Segs 71.4 % 45.0 - 75.0 11/12/[address] [facility] HEMATOLOGY [place] 0.5 min 11/12/[address] [facility] HEMATOLOGY Rapid TEG Sample Type Citrated Whole Blood 11/12/2012 [facility] HEMATOLOGY G-value 14.2 K d/sc 5.0 - 11.6 11/12/2012 [facility] HEMATOLOGY ACT (TEG) 105 s 86 - 118 11/12/[address] [facility] HEMATOLOGY Angle 79 degrees 64 - 80 11/12/[address] [facility] HEMATOLOGY Max Amp 74 mm 52 - 71 11/12/2012 [facility] HEMATOLOGY R-time 0.6 min 0.4 - 0.7 11/12/[address] [facility] HEMATOLOGY K-time 0.8 min 0.6 - 2.3 11/12/[address] [facility] HEMATOLOGY Estimated % Lysis 2.8 % 0.0 - 7.5 11/12/[address] [facility] HEMATOLOGY MPV 8.2 fL 7.4 - 10.4 11/12/[address] [facility] HEMATOLOGY Platelet 292 K/CMM 133 - 450 11/12/[address] [facility] HEMATOLOGY MCHC 34.7 g/dL 32.0 - 36.0 11/12/[address] [facility] HEMATOLOGY MCV 91.3 fL 81.0 - 99.0 11/12/[address] [facility] HEMATOLOGY MCH 31.6 pg 27.0 - 31.0 11/12/2012 [facility] HEMATOLOGY RDW 12.8 % 11.5 - 14.5 11/12/[address] [facility] HEMATOLOGY WBC 9.8 K/CMM 3.7 - 10.4 11/12/[address] [facility] HEMATOLOGY RBC 4.59 M/CMM 4.20 - 5.40 11/12/[address] [facility] HEMATOLOGY Hct 42.0 % 36.0 - 48.0 11/12/2012 [facility] HEMATOLOGY Hgb 14.5 g/dL 12.0 - 16.0 11/12/[address] [facility] Elbow 3 views Elbow 3 views EXAM: XR RIGHT HUMERUS 2 VIEWS EXAM: XR ELBOW 3 VIEWS DATE: November 12, 2012 01:31:00 PM INDICATION: Fracture TECHNIQUE: AP and lateral views of the humerus. AP, lateral, and oblique views of the elbow COMPARISON: Right shoulder radiographs from earlier today FINDINGS: Humerus: Fracture line is seen in the region of the greater tuberosity. The remainder of the humerus appears intact. The soft tissues are unremarkable. Elbow: No fracture or dislocation. Soft tissues are normal. IMPRESSION: 1. Minimally displaced fracture of the greater tuberosity is again evident. The remainder of the humerus is intact. 2. No abnormality of the elbow. 11/12/2012 - - Electronically Signed by: Sim France MD 12/01/12 00:[address] [facility] Vital Signs Vital Sign Value Date Comments Source Respitory Rate 21 07/05/2017 [facility] Systolic (mm Hg) 109 07/05/2017 [facility] Diastolic (mm Hg) 68 07/05/2017 [facility] Systolic (mm Hg) 106 07/05/2017 [facility] Diastolic (mm Hg) 61 07/05/2017 [facility] Respitory Rate 15 07/05/2017 [facility] Systolic (mm Hg) 108 07/05/2017 [facility] Diastolic (mm Hg) 60 07/05/2017 [facility] Respitory Rate 18 07/05/2017 [facility] Temperature Oral (F) 98.0 F 07/04/2017 [facility] Weight 68.182 07/04/2017 [facility] Heart Rate 157 07/04/2017 [facility] BMI Calculated 22.86 07/04/2017 [facility] Height 172.72 cm 07/04/2017 [facility] Respitory Rate 18 11/16/2012 [facility] Temperature Oral (F) 98.1 F 11/16/2012 [facility] Systolic (mm Hg) 113 11/16/2012 [facility] Diastolic (mm Hg) 65 11/16/2012 [facility] Heart Rate 89 11/16/2012 [facility] Systolic (mm Hg) 128 11/16/2012 [facility] Temperature Oral (F) 98.1 F 11/16/2012 [facility] Heart Rate 76 11/16/2012 [facility] Respitory Rate 20 11/16/2012 [facility] Diastolic (mm Hg) 78 11/16/2012 [facility] Heart Rate 80 11/16/2012 [facility] Respitory Rate 20 11/16/2012 [facility] [facility] Temperature Oral (F) 98.2 F 11/16/2012 [facility] Systolic (mm Hg) 106 11/16/2012 [facility] Diastolic (mm Hg) 56 11/16/2012 [facility] Weight 65.909 11/13/2012 [facility] Height 172.7 cm 11/13/2012 [facility] Height 172.72 cm 11/12/2012 [facility] Weight 65.909 11/12/2012 [facility] Encounters Location Location Details Encounter Type Encounter Number Reason For Visit Attending Provider ADM Date DC Date Status Source [facility] Inpatient [id number] OPEN KNEE WOUND, AUTOPED KENTRELL ENG 11/12/2012 11/16/[address] [facility] TH [id number] HUMERUS FX MADELEINE DALIA 03/21/2013 Active S[facility] [place] [id number] 719.41 - JOINT PAIN-SHLD KETAN FULLCHERRY 03/23/2013 03/23/2013 Active [facility] [place] [id number] 719.41 - JOINT PAIN-SHLD KETAN FULLCHERRY 05/06/2013 Active [facility] [place] OD [id number] 719.46 - JOINT PAIN-L/LE KETAN FULLICK 06/24/2013 Active [facility] Bryce [facility] Outpatient Imaging [place] [facility] [id number] Ketan Luis 11/30/2013 12/01/2013 [facility] [place] [facility] Patients [id number] Ketan Fullcherry 12/12/2013 01/11/2014 [facility] Outpatient Imaging - [place] [facility] [id number] Ketan Fullcherry 01/11/2014 01/12/2014 [facility] [place] [facility] [id number] [place] 10/23/2014 11/22/2014 [facility] [id number] [place] 11/24/2014 12/24/2014 [facility] [id number] [place] 12/25/2014 01/24/2015 [facility] [id number] [place] 01/26/2015 02/25/2015 [facility] Patients [id number] [place] 02/26/2015 03/28/2015 [facility] Emergency [id number] Damon Pierre 07/04/2017 07/05/2017 [facility] [id number] RT GREAT TUBEROSITY FX, LT KNEE PAIN KETAN ESCOBAR Active [facility] Procedures Procedure Code Date Perfomer Comments Source Breast lumpectomy<sup>1</sup> [id number] biopsy negative [facility] Cholecystectomy [id number] [facility] Reconstruction [id number] [facility] Breast lumpectomy <sup>1</sup> [id number] 1biopsy negative [facility] Cholecystectomy [id number] [facility] Reconstruction [id number] [facility] Breast lumpectomy<sup>1</sup> [id number] biopsy negative [facility] Cholecystectomy [id number] [facility] Reconstruction [id number] [facility]
[2018-09-15 13:21] LABS: BASOPHILS # (AUTO) 0.1 (0.0-0.1); BASOPHILS % 0.6 % (0.0-1.0); EOSINOPHILS # (AUTO) 0.6 (0.0-0.4); EOSINOPHILS % 6.1 % (0.0-6.0); HEMATOCRIT 41.5 % (34.2-44.1); HEMOGLOBIN 13.8 g/dL (12.0-16.0); LYMPHOCYTES # (AUTO) 2.3 (1.0-3.2); LYMPHOCYTES % 25.7 % (18.0-39.1); MEAN CORPUSCULAR HEMOGLOBIN 30.3 pg (28-32); MEAN CORPUSCULAR HGB CONC 33.3 g/dL (31-35); MONOCYTES # (AUTO) 0.6 (0.2-0.8); MONOCYTES % 6.9 % (4.4-11.3); NEUTROPHILS # (AUTO) 5.4 (2.1-6.9); NEUTROPHILS % 60.4 % (38.7-80.0); PLATELET COUNT 406 x10e3/uL (140-360); RED BLOOD COUNT 4.56 x10e6/uL (3.6-5.1); RED CELL DISTRIBUTION WIDTH 14.2 % (11.7-14.4)
[2018-09-15 13:41] LABS: CLARITY,URINE HAZY (CLEAR); COLOR,URINE STRAW (YELLOW); KETONES,URINE NEGATIVE (NEGATIVE); LEUKOCYTE ESTERASE ,URINE TRACE (NEGATIVE); NITRITE,URINE POSITIVE (NEGATIVE); PROTEIN,URINE DIPSTICK NEGATIVE (NEGATIVE)
[2018-09-15 13:42] LABS: BILIRUBIN,URINE NEGATIVE (NEGATIVE); PREGNANCY TEST, URINE NEGATIVE (NEGATIVE); URINE UROBILINOGEN 0.2 mg/dL (0.2 - 1)
[2018-09-15] MEDS ORDERED: PANTOPRAZOLE 40 MG 10ML VIAL IV STA (13:43)
[2018-09-15] MEDS ORDERED: METRONIDAZOLE 500MG/NS 100ML 100 ML IV STA (13:43)
[2018-09-15] MEDS ORDERED: SODIUM CHLORIDE 0.9% 1000ML 1,000 ML IV STA (13:43)
[2018-09-15] MEDS ORDERED: ONDANSETRON HCL INJ 2MG/ML 2ML 2 MG/ML VIAL IV STA (13:43)
[2018-09-15] MEDS ORDERED: CIPROFLOXACIN 400 MG/D5W 200ML 200 ML IV ONE (13:45)
[2018-09-15 13:49] LABS: ALANINE AMINOTRANSFERASE 11 IU/L (0-55); ALBUMIN 3.8 g/dL (3.5-5.0); ALKALINE PHOSPHATASE 99 IU/L (40-150); ANION GAP 13.1 mmol/L (8-16); BLOOD UREA NITROGEN 9 mg/dL (7-26); BUN/CREATININE RATIO 12 (6-25); CALCIUM 9.7 mg/dL (8.4-10.2); CARBON DIOXIDE 23 mmol/L (22-29); CHLORIDE 104 mmol/L (98-107); CREATININE, SERUM 0.77 mg/dL (0.57-1.11); EST GLOMERULAR FILTRATION RATE > 60 ML/MIN (60-); GLUCOSE 100 mg/dL (74-118); POTASSIUM 4.1 mmol/L (3.5-5.1); SODIUM 136 mmol/L (136-145)
[2018-09-15 13:55] LABS: BACTERIA,URINE MANY /HPF; EPITHELIAL CELLS,URINE FEW /LPF; WBC,URINE (MAN) 0-5 /HPF (0-5)
[2018-09-15] MEDS ORDERED: DIATRIZOATE MEGL/DIATRIZOA SOD 30 ML BTL PO ONE (13:57)
--- NOTE | 2018-09-15 15:10 | NUR ---
PT SHOWED NURSE, MD, AND PROJECTION CAMERA OPERATOR BLOODY STOOL IN TOILET POST DEFECATION
[2018-09-15] MEDS ORDERED: CEFTRIAXONE SOD 1 GM VIAL IV ONE (15:15)
[2018-09-15] MEDS ORDERED: IOPAMIDOL 370 MG/ML 200 ML INFUS..BTL INJ ONE (15:21)
[2018-09-15] MEDS ORDERED: SODIUM CHLORIDE 0.9% 50ML 50 ML ONE (15:21)
[2018-09-15] MEDS ORDERED: CEFTRIAXONE SOD 1 GM/NS 50 ML 50 ML IV ONE (15:30)
[2018-09-15] MEDS ORDERED: MORPHINE SULFATE INJ 4 MG/ML INJ 1ML IV NR (17:00)
--- NOTE | 2018-09-15 17:06 | NUR ---
IV SITE LEFT ARM AC 20 G INFILTRATED; IV REMOVED
--- NOTE | 2018-09-15 18:22 | Diagnostic Imaging Report ---
EXAM: CT Abdomen and Pelvis WITH contrast INDICATION: Left lower quadrant abdominal pain. COMPARISON: None. TECHNIQUE: Abdomen and pelvis were scanned utilizing a multidetector helical scanner from the lung base to the pubic symphysis after administration of IV contrast. Coronal and sagittal reformations were obtained. Routine protocol was performed. Scan was performed when during portal venous phase. IV CONTRAST: 100 cc of Isovue 370 ORAL CONTRAST: Water COMPLICATIONS: None RADIATION DOSE: Total DLP: 253.2 mGy*cm Dose modulation, iterative reconstruction, and/or weight based adjustment of the mA/kV was utilized to reduce the radiation dose to as low as reasonably achievable. FINDINGS: LINES and TUBES: None. LOWER THORAX: Unremarkable HEPATOBILIARY: Diffuse fatty liver. No evidence of focal lesion. Apparent mild dilatation of the common bile duct likely represents post cholecystectomy reservoir effect. SPLEEN: No splenomegaly. Calcified splenic granuloma. PANCREAS: No focal masses or ductal dilatation. ADRENALS: No adrenal nodules KIDNEYS/URETERS: Kidneys enhance symmetrically. No evidence of hydronephrosis or solid mass. There is a nonobstructing conglomerate stone within the right lower pole kidney, measuring up to 1.0 x 0.6 cm. GI TRACT: There is distal descending and sigmoid colonic diverticulosis with associated wall thickening and mild pericolonic inflammatory changes. The degree of wall thickening is greater than that of the inflammatory change. There is focal wall thickening within the mid transverse colon on series 2, image 48 without associated inflammatory changes. Portions of the distal colon appears somewhat featureless without normal haustral folds for example at the splenic flexure on series 2, image 29. PELVIC ORGANS/BLADDER: The bladder is unremarkable in appearance. There are bilateral calcified phleboliths. LYMPH NODES: No lymphadenopathy. VESSELS: There is narrowing at the origin of the celiac artery adjacent to the derrick of the diaphragm. There is poststenotic dilatation on series 2, image 21. PERITONEUM / RETROPERITONEUM: No free air or fluid. BONES AND SOFT TISSUES: Unremarkable. CONCLUSION: Findings of distal descending and sigmoid colonic diverticulitis. No evidence of free air or drainable fluid collection. The degree of wall thickening is greater than the degree of inflammatory changes. Follow-up colonoscopy is recommended after resolution of acute symptoms to exclude underlying neoplastic process. Focal wall thickening in the mid transverse colon without surrounding inflammatory changes. This can be further assessed on follow-up colonoscopy. Portions of the distal colon lack haustral folds and are somewhat featureless in appearance. This could reflect chronic inflammatory etiology in the appropriate clinical setting. Narrowing at the origin of the celiac artery at the diaphragmatic derrick could reflect median arcuate ligament syndrome in the appropriate clinical setting. Nonobstructing right lower pole stone measuring up to 1 cm. Diffuse fatty liver. Signed by: Dr. Yunior Rodriguez MD on 09/15/2018 6:19 PM
[2018-09-15] MEDS ORDERED: ONDANSETRON HCL INJ 2MG/ML 2ML 2 MG/ML VIAL IV SCH (18:45)
[2018-09-15] MEDS ORDERED: ONDANSETRON HCL INJ 2MG/ML 2ML 2 MG/ML VIAL IV PRN (18:45)
[2018-09-15] MEDS ORDERED: MORPHINE SULFATE 2 MG/ML SYR 1ML IV PRN (18:45)
[2018-09-15] MEDS: SODIUM CHLORIDE 0.9% 1000ML 1,000 ML IV SCH (18:47)
[2018-09-15] MEDS ORDERED: MORPHINE SULFATE INJ 4 MG/ML INJ 1ML IV PRN (19:00)
[2018-09-15 20:00] VITALS: BP 101/55
--- NOTE | 2018-09-15 20:20 | NUR ---
received pt from ER to room 291, AAOx4, able to verbalize needs, ambulates with steady gait, c/o pain to abdomen 01/19 with pain meds on board, new IV started to left hand 22G, IV to right wrist removed, NS @125, bed in lowest and locked position with call light in reach
[2018-09-15 21:00] VITALS: BP 101/55
[2018-09-16] VITALS: BP 94/52
[2018-09-16] MEDS: METRONIDAZOLE 500MG/NS 100ML 100 ML IV SCH ×5 (00:35→23:43)
[2018-09-16 04:00] VITALS: BP 88/50
[2018-09-16] MEDS: SODIUM CHLORIDE 0.9% 1000ML 1,000 ML IV SCH ×3 (05:34→23:30)
[2018-09-16] MEDS ORDERED: ACETAMINOPHEN 325 MG TAB PO PRN (06:00)
--- NOTE | 2018-09-16 06:10 | NUR ---
consults to Dr. Hart and Dr. Pablo called in
[2018-09-16 08:00] VITALS: BP 95/51
--- NOTE | 2018-09-16 10:00 | NUR ---
CASE MANAGEMENT INITIAL ASSESSMENT [employer] Representative to bedside to discuss plan of care with patient/family. CM/SW role and care transitions discussed. Anticipated discharge plan discussed along with duration of care. CM/SW discussed patients right to make decisions in care. CM/SW work hours given. Patient lives: Admit/Transfer: ER Hospital/ER visits since last admit:0 POA/Emergency contact: CARLY SOLIMAN ; [phone] Current/Previous Home Health: NONE PCP/Follow-up Care: NORBERTO DE LA CRUZ Current/Previous DME: NONE Medications (referring to index hospitalization or the first time you were in the hospital) a. Were changes made in your medications when you were in the hospital on [date of index hospitalization]? Yes No Not sure Explain: Note: If no or not sure, please skip to question d b. Did you understand the changes? Yes No Explain: c. Were you able to obtain your new medications right away? Yes No n/a SNF only Explain: d. Were you able to take your medications like the doctor wanted you to? TAKING MEDS INSTRUCTED PER PCP e. Did the hospital give you an accurate, easy to understand list of medications when you left? N/A Scale of 1-10 how comfortable does patient feel with disease management in outpatient settin Other Services: NONE Employment Status: UNEMPLOYED Areas of Concerns: NONE Referral Needs: NONE Education Needs: PT AWARE OF S/S AND TREATMENT OF COLITIS IMM/SAINZ given and signed (if applicable): N/A Goal for discharge:DC HOME AND BE ABLE TO MANAGE COLITIS OP CM/SW left business card at the bedside with contact information. Name and number was also written on the patients whiteboard. Patient verbalized understanding of discussion. CM will follow-up with ongoing discharge and transition of care needs.
[2018-09-16 12:11] VITALS: BP 97/50
--- NOTE | 2018-09-16 12:19 | History and Physical ---
REASON FOR ADMISSION: Diverticulitis. HISTORY OF PRESENT ILLNESS: The patient is a 53-year-old lady, who has been experiencing her fifth episode of acute diverticulitis in left lower quadrant confirmed on CT scan and she has been brought in for IV antibiotics and pain control. PAST MEDICAL HISTORY: Significant for diverticulosis. MEDICATIONS: None. SOCIAL HISTORY: Lives at home with her . Nonsmoker, nondrinker. ALLERGIES: LEVAQUIN, CODEINE, PENICILLIN, AND IODINE. FAMILY HISTORY: Noncontributory. PHYSICAL EXAMINATION: VITAL SIGNS: Temperature 96.8, pulse 76, blood pressure 94/52, and sats 95% on room air. GENERAL: No apparent distress, lying in bed. LUNGS: Clear to auscultation bilaterally. NECK: Supple. No lymphadenopathy. CARDIOVASCULAR: Regular rate and rhythm. ABDOMEN: Good bowel sounds. Soft, nondistended, but she is tender in the left lower quadrant. No rebound, guarding, or peritoneal signs. EXTREMITIES: No clubbing or cyanosis. NEUROLOGIC: Nonfocal. ASSESSMENT AND PLAN: 1. Acute diverticulitis. Continue with IV antibiotics. We will go ahead and consult Gastroenterology and Surgery since this is the patient's fifth episode, she would probably be a good candidate for elective outpatient hemicolectomy once this episode resolves. We will go ahead and consult Dr. Hart to meet the patient. 2. Abdominal pain. Continue with her pain control. Please see hospital chart for full details. MD MARCELLE Paredes/LETY /[id number]
[2018-09-16 16:00] VITALS: BP 112/55
[2018-09-16] MEDS: DICYCLOMINE HCL 20 MG TAB PO PRN (17:44)
--- NOTE | 2018-09-16 18:00 | NUR ---
GI and general surgeon were here to see pt. General surgeon recommends possible procedure in 3-4wks. GI started pt on clear liquid diet and well tolerated by pt.
--- NOTE | 2018-09-16 19:54 | NUR ---
Received change of shift report from AM nurse. Rounds completed.
--- NOTE | 2018-09-16 19:55 | NUR ---
Received change of shift report from ARMOND babcock. Rounds completed. Addendum: 09/17/18 at 0611 by Ailin Mishra RN rodger
[2018-09-16 20:00] VITALS: BP 109/59
[2018-09-17] VITALS (7 sets, daily range): BP systolic 107–143; BP diastolic 53–67
--- NOTE | 2018-09-17 | NUR ---
Patient in bed. no c/o pain at this time. IV to left hand dry and intact.with NS at 100cc. RA with good o2sat. Continue monitor.
[2018-09-17] MEDS: SODIUM CHLORIDE 0.9% 1000ML 1,000 ML IV SCH ×4 (02:37→18:31)
--- NOTE | 2018-09-17 03:17 | Consultation ---
DATE OF CONSULTATION: Gastroenterology Consultation REASON FOR CONSULTATION: Recurrent diverticulitis. HISTORY OF PRESENT ILLNESS: Ms. Singh is a very pleasant 53-year-old woman, who I know from outpatient clinic. I saw her back in 2016, at which time she had a colonoscopy. It was ileitis as well as diverticulosis. Biopsies of the ileum were unremarkable. Random biopsies of the right and left colon were taken and there was preservation of crypt architecture with minimal thickening of the muscularis mucosa and entrapment of small clips related to diverticulosis. She has history of abnormal CT scan from the colon. She has not had a colonoscopy since 2016 that she is aware of. She came in with abdominal pain in the left lower quadrant concerning for acute diverticulitis, confirmed on imaging. She also had bright-red blood per rectum with diarrhea and clots. 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 PAST SURGICAL HISTORY: Includes right meniscus tear repair, right shoulder reconstruction, right breast lumpectomy, cholecystectomy, colonoscopy. MEDICATIONS: Reviewed. Please see MAR medication reconciliation form. ALLERGIES: REVIEWED. OF NOTE, SHE IS ALLERGIC TO CODEINE, LEVAQUIN, PENICILLIN, WELL IODINE. FAMILY HISTORY: Reviewed. Father for diabetes, esophageal cancer, gallbladder disease. SOCIAL HISTORY: Positive for tobacco in the past. REVIEW OF SYSTEMS: A 12-system review is positive for that mentioned in HPI, otherwise unremarkable. PHYSICAL EXAMINATION: GENERAL: Pleasant, alert and oriented, in no acute distress. HEENT: Pupils are equal, round, and reactive to light. NECK: Supple. LUNGS: Clear. CARDIOVASCULAR: S1 and S2. ABDOMEN: Soft, tender in the lower abdomen particularly in the left lower quadrant. No rebound, guarding, or mass. EXTREMITIES: No clubbing, cyanosis, or edema. PSYCHIATRIC: Calm, cooperative. NEUROLOGIC: Nonfocal. HEME/ONC: No bruising or adenopathy. The electronic health records were reviewed for laboratory and radiologic studies as well as history. ASSESSMENT: 1. Recurrent acute diverticulitis. 2. Abnormal CT colon, question of some underlying pathology such as inflammatory bowel disease. 3. Reflux. PLAN: At the current time, she will be undergoing therapy with antibiotics. As an outpatient in a few weeks, she needs to have another colonoscopy for evaluation of any other pathology. Thereafter, she likely would benefit from resection of the diffuse segment of colon. I appreciate Dr. Hart has already seen her. For now, she is just on Flagyl due to her multiple allergies. If she does not respond, we might need to have Infectious Disease see her to make recommendations. I think we can start a clear liquid diet and see how she tolerates it. Thank you very much for asking me to see Ms. Singh. Any questions or concerns, please do not hesitate to contact me. Chelsea Rios MD RLS/MODL /[id number]
[2018-09-17] MEDS: METRONIDAZOLE 500MG/NS 100ML 100 ML IV SCH ×3 (05:11→17:39)
--- NOTE | 2018-09-17 06:10 | NUR ---
Patient resting quitly at this time. No noted pain or discomfort noted. Continue monitor.
--- NOTE | 2018-09-17 06:43 | Consultation ---
DATE OF CONSULTATION: 09/16/2018 Consultation Note HISTORY OF PRESENT ILLNESS: The patient is a 53-year-old female, who was admitted to the hospital with complaints of left lower quadrant abdominal pain. She was evaluated with CT scan of the abdomen and pelvic, which reveals diverticulitis involving the descending and sigmoid colon with an airway thickening within the colon. She has had multiple previous episodes of diverticulitis, requiring hospitalization. The patient states her pain is somewhat less than she was admitted. PAST MEDICAL HISTORY: Significant for diverticular disease, she has had multiple previous surgeries including knee surgery, cholecystectomy, breast surgery. MEDICATIONS: There were no medications at home. ALLERGIES: SHE HAS ALLERGIES TO LODINE, PENICILLIN, CODEINE, AND LEVAQUIN. FAMILY HISTORY: Noncontributory. SOCIAL HISTORY: The patient smokes cigarettes about a pack per day. Occasionally, she drinks alcohol. REVIEW OF SYSTEMS: As stated above, otherwise it was negative. PHYSICAL EXAMINATION: GENERAL: The patient is awake and alert. VITAL SIGNS: Normal. HEENT: Reveals no scleral icterus. NECK: No masses. LUNGS: Equal breath sounds. Clear bilaterally. CARDIAC: Regular rate and rhythm with no murmur. ABDOMEN: Tender in the left lower quadrant with questionable signs of peritonitis, localized to the left lower quadrant. There was slight distention. There was no mass. There was no organomegaly. EXTREMITIES: Have no edema. Pulses are palpable. NEUROLOGIC: Grossly intact. LABORATORY TESTS: White blood cell count is 9000, hemoglobin 13.8, hematocrit 41.5. Chemistries were essentially normal. ASSESSMENT: A 53-year-old female with recurrent episodes of sigmoid diverticulitis, recommend keeping the patient on IV antibiotics. She has had colonoscopy as an outpatient, she said about a year ago and states this only revealed diverticular disease. I think the patient will likely benefit from colon resection once she is over this acute episode, perhaps in 3-4 weeks. This was explained to the patient. She is considering this option. Thank you for asking me to see Ms. Singh. MD SHAYLA Reyes/LETY /[id number]
--- NOTE | 2018-09-17 14:35 | NUR ---
CALL PLACED OUT TO DR. DE LA CRUZ REGARDING SENSITIVITY OF ANTIBIOTICS FOR PATIENT'S MICRO/URINE RESULTS. AWAITING CALLBACK.
--- NOTE | 2018-09-17 14:38 | NUR ---
RECEIVED ORDER FROM DR. DE LA CRUZ TO CONSULT DR. PENA REGARDING URINE CULTURE.
--- NOTE | 2018-09-17 19:28 | NUR ---
PATIENT IN STABLE CONDITION WITH NO S/S OF RESPIRATORY DISTRESS. IV FLUIDS INFUSING. PRESENT IN ROOM. CALL LIGHT IS WITHIN REACH, INSTRUCTED TO CALL FOR ASSISTANCE NEEDED. REPORT GIVEN TO ONCOMING NURSE.
--- NOTE | 2018-09-17 19:31 | NUR ---
Received change of shift report from AM nurse. Rounds completed.
[2018-09-17] MEDS: DICYCLOMINE HCL 20 MG TAB PO PRN (19:33)
[2018-09-17] MEDS: CEFEPIME 1GM/NS 0.9% 50 ML 50 ML IV SCH (21:16)
[2018-09-18] VITALS (7 sets, daily range): BP systolic 116–133; BP diastolic 54–63
[2018-09-18] MEDS: SODIUM CHLORIDE 0.9% 1000ML 1,000 ML IV SCH ×3 (05:30→17:44)
[2018-09-18] MEDS: METRONIDAZOLE 500MG/NS 100ML 100 ML IV SCH ×4 (05:35→17:02)
[2018-09-18] MEDS: CEFEPIME 1GM/NS 0.9% 50 ML 50 ML IV SCH ×2 (05:35→14:13)
--- NOTE | 2018-09-18 06:45 | NUR ---
Patient resting quit at this time.
--- NOTE | 2018-09-18 07:10 | NUR ---
PATIENT IN STABLE CONDITION WITH NO S/S OF RESPIRATORY DISTRESS. NO PAIN VOICED. IV FLUIDS INFUSING. CALL LIGHT IS WITHIN REACH, INSTRUCTED TO CALL FOR ASSISTANCE NEEDED.
--- NOTE | 2018-09-18 12:29 | Progress Note ---
DATE: SUBJECTIVE: This patient has diverticulitis. The patient is currently on antibiotics. The patient is pain free. Urine also positive for ESBL. The patient's imaging study did show diverticulitis and possible IBD. Seen by Dr. Rios and also by Dr. Hart and plan is to continue with IV antibiotics and also possible colon resection as an outpatient on a different admission. OBJECTIVE: VITAL SIGNS: Temperature is 97.7, pulse is 76, blood pressure is 123/59, and pulse oximetry of 95%. HEENT: Normocephalic and atraumatic. Pupils are reactive to light and accommodation. CVS: S1 and S2 normal. Regular rate and rhythm. ABDOMEN: Tender in the left lower quadrant. EXTREMITIES: No clubbing, no cyanosis, and no edema. LABORATORY VALUES: From 09/15/2018, everything normal. Chemistries also normal. Creatinine is 0.99. The patient is getting IV fluids at 125 mL an hour. The patient's microbiology, again ESBL, resistant to Levaquin, sensitive to imipenem and Zosyn. The patient is currently on cefepime and Flagyl and E coli shows resistant to cefepime. ASSESSMENT: 1. Extended-spectrum beta-lactamase urinary tract infection. 2. Diverticulitis. PLAN: Plan is to switch the patient to Merrem for better coverage of UTI and the diverticulitis. Continue monitoring the patient's fluid resuscitation and also the patient is on clear liquid diet. Further recommendation and clinical course, we will continue to monitor the patient. MD ASAF Chavez/LETY /[id number]
--- NOTE | 2018-09-18 19:30 | NUR ---
patient received awake, alert, lying quietly in bed. no c/o pain noted. ivf continue to infuse without difficulty. pm assessment complete. patient instructed to call for assistance when needed.
--- NOTE | 2018-09-18 19:48 | NUR ---
PATIENT RESTING IN BED- IN STABLE CONDITION WITH NO S/S OF RESPIRATORY DISTRESS. NO PAIN VOICED. IV FLUIDS INFUSING. CALL LIGHT IS WITHIN REACH, INSTRUCTED TO CALL FOR ASSISTANCE NEEDED. REPORT GIVEN TO ONCOMING NURSE.
[2018-09-18] MEDS: MEROPENEM 1GM 100 ML IV SCH (21:21)
[2018-09-19] VITALS (8 sets, daily range): BP systolic 111–135; BP diastolic 56–63
[2018-09-19] MEDS: SODIUM CHLORIDE 0.9% 1000ML 1,000 ML IV SCH (03:00)
--- NOTE | 2018-09-19 04:03 | Consultation ---
DATE OF CONSULTATION: REASON FOR CONSULTATION: 1. UTI. 2. Diverticulitis. 3. ESBL infection. HISTORY OF PRESENT ILLNESS: This patient is a very pleasant 53-year-old white female comes in with abdominal pain, which she had for the last few days, so she came here, this is her 5th episode. She had abdominal pain with bloody stools. No specific fever or chills. When she came to the emergency room she was found to have diverticulitis. The patient was admitted, she was seen by GI, she was seen by Surgery. The plan for her is to have surgery in the future. However, her urine culture is showing ESBL. The patient is currently lying in bed comfortably. The patient has history of diverticulosis, history of hemorrhoids, gastroesophageal reflux disease. PAST SURGICAL HISTORY: Meniscus tear repair, right shoulder surgery, right breast lumpectomy, cholecystectomy. ALLERGIES: LEVOFLOXACIN AND PENICILLIN. MEDICATIONS: She is currently on , cefepime. Her culture, she grew E. coli ESBL. PHYSICAL EXAMINATION: GENERAL: She is currently alert, oriented, does not seem to be in acute distress. VITAL SIGNS: Stable. Currently afebrile. HEENT: She is not icteric. NECK: Supple. CHEST: Clear. HEART: S1, S2. No murmur. ABDOMEN: Soft. Bowel sounds present. No tenderness. EXTREMITIES: No edema. SKIN: No rash. LABORATORY DATA: White count 9.0, hemoglobin 13. Sodium 136, potassium 4.1, creatinine 0.77. The urine showed E. coli ESBL sensitive to meropenem, gentamicin, imipenem, amikacin, and Zosyn. She had a CT of the abdomen and pelvis, which showed diverticulitis. No free air. IMPRESSION AND PLAN: Diverticulitis, urinary tract infection with ESBL. We will start the patient on meropenem 500 mg IV q.6 or 1 g q.8, get a PICC line. Plan on 2 weeks of antibiotic. We will follow. MD TG Novoa/LETY /[id number]
[2018-09-19] MEDS: MEROPENEM 1GM 100 ML IV SCH ×3 (05:03→22:00)
--- NOTE | 2018-09-19 07:20 | NUR ---
PATIENT AWAKE, ALERT AND IS IN STABLE CONDITION WITH NO S/S OF RESPIRATORY DISTRESS- NO PAIN VOICED. CALL LIGHT IS WITHIN REACH, PATIENT INSTRUCTED TO CALL FOR ASSISTANCE NEEDED.
--- NOTE | 2018-09-19 13:27 | Diagnostic Imaging Report ---
EXAMINATION: PA and lateral views of the chest. COMPARISON: None CLINICAL HISTORY: Status post PICC. DISCUSSION: Lines/tubes: Interval placement of right-sided PICC which terminates in the expected location of the upper SVC. Lungs: The lungs are well inflated. No evidence of pneumonia or pulmonary edema. Mild patchy bibasilar opacity, likely atelectasis. Pleura: No pleural effusion or pneumothorax. Heart and mediastinum: The cardiomediastinal silhouette is normal. Bones and soft tissues: No acute osseous abnormality. Partially seen well-circumscribed lesion in the right proximal diaphysis of the humerus measuring up to 1.8 cm. The inferior portion is lytic in the superior portion is mixed lytic sclerotic. There is a sclerotic margin. IMPRESSION: Right-sided PICC terminates at the expected location of the upper SVC. No evidence of pneumothorax. Well-circumscribed, nonaggressive appearing mixed lytic sclerotic lesion in the right proximal humeral diaphysis. Dedicated humeral radiographs are suggested for further evaluation. Signed by: Dr. Yunior Rodriguez MD on 09/19/2018 1:23 PM
--- NOTE | 2018-09-19 19:31 | NUR ---
PATIENT IN STABLE CONDITION WITH NO S/S OF RESPIRATORY DISTRESS. NO PAIN VOICED. PICC LINE FLUSHED. CALL LIGHT IS WITHIN REACH, INSTRUCTED TO CALL FOR ASSISTANCE NEEDED. REPORT GIVEN TO ONCOMING NURSE.
--- NOTE | 2018-09-19 19:42 | NUR ---
RECEIVED PT IN BED AOX3 .DENIES PAIN .RT UPPER LINE WITH PICC LINE .CALL LIGHT WITH IN REACH .CONTINUE TO MONITOR
[2018-09-20 00:11] VITALS: BP 124/65
[2018-09-20 04:00] VITALS: BP 116/56
--- NOTE | 2018-09-20 05:50 | NUR ---
PT DENIES PAIN .NO ACUTE DISTRESS NOTED .CALL LIGHT WITH IN REACH .CONTINUE TO MONITOR
[2018-09-20] MEDS: MEROPENEM 1GM 100 ML IV SCH (06:00)
--- NOTE | 2018-09-20 07:20 | NUR ---
REPORT GIVEN TO THE ON COMING NURSE
[2018-09-20 08:00] VITALS: BP 131/60
[2018-09-20 09:00] VITALS: BP 131/60
--- NOTE | 2018-09-20 09:00 | NUR ---
Pt received resting in bed. Alert and oriented x4 pt with right upper arm PICC line. pt on contact isolation for ESBL & MDRO in urine. Oriented to staff and surroundings, encouraged to press call spencer if help needed. Emotional support given. Fall precautions maintained. Will monitor
--- NOTE | 2018-09-20 11:43 | Progress Note ---
DATE: 09/20/2018 SUBJECTIVE: The patient reports no abdominal pain. She is hungry. She is on liquid diet. She would like to eat solid food. She has secured PICC line to get outpatient IV antibiotics. REVIEW OF SYSTEMS: GENERAL: No fever or chills. CVS: No chest pain or palpitations. RESPIRATORY: No cough or expectoration. MEDICATIONS: Reviewed as per SEP. She is getting intravenous meropenum along with other medications. PHYSICAL EXAMINATION: VITAL SIGNS: Temperature 97.5, pulse 71, respirations 20, blood pressure 131/60, oxygen saturation 93% on room air. GENERAL: Not in any acute distress. HEENT: Oral mucosa is moist. Anicteric sclerae. CVS: S1 and S2 regular. LUNGS: Bilaterally grossly clear. ABDOMEN: Soft and nondistended. Mild left lower quadrant tenderness. No rebound, rigidity or guarding. Positive bowel sounds. EXTREMITIES: Warm. No leg edema. LABORATORY DATA: None today. IMPRESSION: Uncomplicated sigmoid diverticulitis. PLAN: Continue IV antibiotics. She is responding very well to conservative management. Surgery has also seen the patient. Diet can be advanced to low residue solid food. She can be discharged home from GI standpoint. The patient will follow in GI Clinic in 2 to 3 weeks post discharge. She would probably need colonoscopy within 2 to 3 months after acute sigmoid diverticulitis has completely resolved. Kwan Crane MD SA/LETY /[id number]
[2018-09-20 12:00] VITALS: BP 126/74
--- NOTE | 2018-09-20 12:32 | NUR ---
Pt given discharge instructions regarding meds, diet, activities, and follow up appointment. Pt verbalized understanding of teaching. Leaving via wheelchair to private car
--- NOTE | 2018-09-21 13:40 | Discharge Summary ---
DISCHARGE DIAGNOSES: 1. Diverticulitis. 2. Urinary tract infection with ESBL infection. HISTORY OF PRESENT ILLNESS: The patient is a lady, who presented with left lower quadrant pain, was found to have sigmoid diverticulitis on CT scan. She was brought in, placed on IV antibiotics, did significantly well with that. By the time of discharge, she was eating well with no pain. She was seen both by her taper machine and the surgeon for possible outpatient elective sigmoidectomy since this was her 4th recurrence in the last she did end up growing ESBL in her urine culture. She was seen by Dr. Almanzar, who placed a PICC line and put her on outpatient IV antibiotics with meropenem for 2 weeks. Please see hospital chart for full details. MD MARCELLE Paredes/LETY /[id number]
== END 2018-09-20 12:59 | disposition home or self-care (01) | DRG 392 ==
LOC: ER 12:45 → ERHOLD 18:59 → MED/SURG3 20:05
PROVIDERS: ADMIT Internal Medicine; ATTEND Internal Medicine
PROC: 02HV33Z Insertion of Infusion Device into Superior Vena Cava, Percutaneous Approach (ICD-10-PCS; principal; 2018-09-19)
DX: K57.32 Diverticulitis of large intestine without perforation or abscess without bleeding (principal); N39.0 Urinary tract infection, site not specified; B96.20 Unspecified Escherichia coli [E. coli] as the cause of diseases classified elsewhere; Z16.12 Extended spectrum beta lactamase (ESBL) resistance
CPT/HCPCS: 36415; 36569; 71045; 74177; 80053; 81001; 81025; 82270; 83690; 85025; 87086; 87186; 93005; 99284; J0692; J0696; J2270; J2405; J7030; Q9967

== ENCOUNTER 2019-02-02 10:15 | Inpatient (IN) | payer BC ==
[2019-01-31 12:44] LABS: BASOPHILS # (AUTO) 0.1 (0.0-0.1); BASOPHILS % 0.7 % (0.0-1.0); EOSINOPHILS # (AUTO) 0.2 (0.0-0.4); EOSINOPHILS % 1.6 % (0.0-6.0); HEMATOCRIT 41.9 % (34.2-44.1); HEMOGLOBIN 13.5 g/dL (12.0-16.0); LYMPHOCYTES # (AUTO) 1.8 (1.0-3.2); LYMPHOCYTES % 16.5 % (18.0-39.1); MEAN CORPUSCULAR HGB CONC 32.2 g/dL (31-35); MEAN CORPUSCULAR VOLUME 96.1 fL (81-99); MONOCYTES # (AUTO) 0.8 (0.2-0.8); MONOCYTES % 6.7 % (4.4-11.3); NEUTROPHILS # (AUTO) 8.2 (2.1-6.9); NEUTROPHILS % 74.1 % (38.7-80.0); PLATELET COUNT 353 x10e3/uL (140-360); RED BLOOD COUNT 4.36 x10e6/uL (3.6-5.1); RED CELL DISTRIBUTION WIDTH 14.2 % (11.7-14.4)
[2019-01-31 13:06] LABS: ANION GAP 13.4 mmol/L (8-16); BLOOD UREA NITROGEN 8 mg/dL (7-26); BUN/CREATININE RATIO 11 (6-25); CALCIUM 9.5 mg/dL (8.4-10.2); CARBON DIOXIDE 26 mmol/L (22-29); CHLORIDE 107 mmol/L (98-107); CREATININE, SERUM 0.75 mg/dL (0.57-1.11); EST GLOMERULAR FILTRATION RATE > 60 ML/MIN (60-); GLUCOSE 97 mg/dL (74-118); POTASSIUM 4.4 mmol/L (3.5-5.1); SODIUM 142 mmol/L (136-145)
--- NOTE | 2019-01-31 13:37 | Diagnostic Imaging Report ---
EXAMINATION: CHEST 2 VIEWS INDICATION: Pre-operative COMPARISON: Chest radiograph of 09/19/2018 FINDINGS: TUBES and LINES: None. LUNGS: Biapical pleural parenchymal thickening/scarring. The lungs are well inflated. No focal consolidation or pulmonary edema. PLEURA: No pleural effusion or pneumothorax. HEART AND MEDIASTINUM: The cardiomediastinal silhouette is normal in size and contour. BONES AND SOFT TISSUES: No acute fracture or dislocation. Unchanged appearance of benign-appearing mixed lytic and sclerotic lesion of the right proximal humerus. UPPER ABDOMEN: No free air under the diaphragm. IMPRESSION: No focal pneumonia or pulmonary edema. Signed by: Skip Lorenzo MD on 01/31/2019 1:33 PM
[~2019-02-02] VITALS: Ht 172.7 cm; Wt 60.0 kg
[~2019-02-02 10:15] MED LIST changes: +CIPRO500 MG PO; +FLAGYL250 MG PO
--- OUTSIDE RECORDS SUMMARY | 2019-02-02 10:22 | XMS REPORT | Continuity of Care Document ---
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 Lymphocytes # 1.7 1.0 - 5.5 11/12/2012 [facility] HEMATOLOGY Eosinophils # 0.3 0.0 - 0.5 11/12/2012 [facility] HEMATOLOGY Monocytes # 0.8 0.0 - 0.8 11/12/2012 [facility] HEMATOLOGY Basophils # 0.0 0.0 - 0.2 11/12/2012 [facility] HEMATOLOGY Eosinophils 3.0 0.0 - 4.0 11/12/2012 [facility] HEMATOLOGY Monocytes 7.9 2.0 - 12.0 11/12/2012 [facility] HEMATOLOGY Lymphocytes 17.4 20.0 - 40.0 11/12/2012 LOW [facility] HEMATOLOGY Segs 71.4 45.0 - 75.0 11/12/2012 [facility] HEMATOLOGY Split Point 0.5 11/12/2012 [facility] HEMATOLOGY Rapid TEG Sample Type Citrated Whole Blood 11/12/2012 [facility] HEMATOLOGY G-value 14.2 5.0 - 11.6 11/12/2012 [facility] HEMATOLOGY ACT (TEG) 105 86 - 118 11/12/2012 [facility] HEMATOLOGY Angle 79 64 - 80 11/12/2012 [facility] HEMATOLOGY Max Amp 74 52 - 71 11/12/2012 [facility] HEMATOLOGY R-time 0.6 0.4 - 0.7 11/12/2012 [facility] HEMATOLOGY K-time 0.8 0.6 - 2.3 11/12/2012 [facility] HEMATOLOGY Estimated % Lysis 2.8 0.0 - 7.5 11/12/2012 [facility] HEMATOLOGY MPV 8.2 7.4 - 10.4 11/12/2012 [facility] HEMATOLOGY Platelet 292 133 - 450 11/12/2012 [facility] HEMATOLOGY MCHC 34.7 32.0 - 36.0 11/12/2012 [facility] HEMATOLOGY MCV 91.3 81.0 - 99.0 11/12/2012 [facility] HEMATOLOGY MCH 31.6 27.0 - 31.0 11/12/2012 [facility] HEMATOLOGY RDW 12.8 11.5 - 14.5 11/12/2012 [facility] HEMATOLOGY WBC 9.8 3.7 - 10.4 11/12/2012 [facility] HEMATOLOGY RBC 4.59 4.20 - 5.40 11/12/2012 Normal [facility] HEMATOLOGY Hct 42.0 36.0 - 48.0 11/12/2012 Normal [facility] HEMATOLOGY Hgb 14.5 12.0 - 16.0 11/12/2012 Normal [facility] Pathology Reports No Data Provided for This Section Diagnostic Reports Report Value Date Source Chest 1view DX Clinical Indication: - shortness of breath; Comparison: None Technique: X-ray chest frontal projection FINDINGS: There is no consolidation, pleural effusion or pneumothorax. The heart is normal in size. The mediastinum and pawel are unremarkable. The visualized bones and soft tissues are within normal limits. IMPRESSION: No chest radiographic evidence of acute cardiopulmonary disease. SL: GEOVANNI 07/04/2017 [place] contrast MRI EXAM: MRI of [...] condyle. 4. No bone marrow edema. 01/11/2014 [facility] [place] Knee 3 views EXAM: XR LEFT KNEE 3 VIEWS DATE: 11/30/2013 INDICATION: pain COMPARISON: 06/24/2013 TECHNIQUE: 3 views of the left knee DISCUSSION: No acute fracture or malalignment is identified. There is no excessive joint fluid. No soft tissue abnormality is identified. IMPRESSION: No abnormality identified. 11/30/2013 [facility]ARG[facility]ET [facility] Knee wo contrast MRI EXAM: MRI of [...] physiologic fluid in the knee joint. 06/27/2013 MARGARET [place] Knee 4+ views unilateral EXAM: LEFT KNEE, 4 VIEWS DATE: Jun 24, 2013 09:15:00 AM: INDICATION: 719.46 Pain in Joint Involving Lower Leg COMPARISON: Left knee radiographs of 11/12/2012 TECHNIQUE: 4 views of the left knee are submitted for interpretation. COMMENTS: No fracture, dislocation or other acute bony abnormality is identified. No soft tissue abnormality is identified. IMPRESSION: No abnormality identified. 06/24/2013 MARGARET [facility] Shoulder series EXAM: XR RIGHT SHOULDER 3 [...] at the site of prior fracture. 05/06/2013 [facility] [place] Shoulder w contrast MRI Examination: MR arthrogram [...] healed fracture of the greater tuberosity. 03/30/2013 [facility] [place] Shoulder arthrogram Right shoulder arthrogram. Clinical History: [...] the right shoulder for MR arthrogram. 03/30/2013 MARGARET [place] Shoulder series EXAM: XR RIGHT SHOULDER 5 [...] the fracture line less well seen. 03/23/2013 MARGARET [place] Elbow 3 views EXAM: XR RIGHT HUMERUS [...] 2. No abnormality of the elbow. 11/12/2012 [facility] Consultation Notes No Data Provided for This Section Discharge Summaries No Data Provided for This Section History and Physicals No Data Provided for This Section Vital Signs Vital Sign Value Date Comments Source Respitory Rate 21 07/05/2017 [facility] Systolic (mm Hg) 109 07/05/2017 [facility] Diastolic (mm Hg) 68 07/05/2017 [facility] Systolic (mm Hg) 106 07/05/2017 [facility] Diastolic (mm Hg) 61 07/05/2017 [facility] Respitory Rate 15 07/05/2017 [facility] Systolic (mm Hg) 108 07/05/2017 [facility] Diastolic (mm Hg) 60 07/05/2017 [facility] Respitory Rate 18 07/05/2017 [facility] Temperature Oral (F) 98.0 F 07/04/2017 [facility] Weight 68.182 07/04/2017 [facility] Heart Rate 157 07/04/2017 [facility] BMI Calculated 22.86 07/04/2017 [facility] Height 172.72 cm 07/04/2017 [facility] Respitory Rate 18 11/16/2012 [facility] Temperature Oral (F) 98.1 F 11/16/2012 [facility] Systolic (mm Hg) 113 11/16/2012 [facility] Diastolic (mm Hg) 65 11/16/2012 [facility] Heart Rate 89 11/16/2012 [facility] Systolic (mm Hg) 128 11/16/2012 [facility] Temperature Oral (F) 98.1 F 11/16/2012 [facility] Heart Rate 76 11/16/2012 [facility] Respitory Rate 20 11/16/2012 [facility] Diastolic (mm Hg) 78 11/16/2012 [facility] Heart Rate 80 11/16/2012 [facility] Respitory Rate 20 11/16/2012 [facility] Temperature Oral (F) 98.2 F 11/16/2012 [facility] Systolic (mm Hg) 106 11/16/2012 [facility] Diastolic (mm Hg) 56 11/16/2012 [facility] Weight 65.909 11/13/2012 [facility] Height 172.7 cm 11/13/2012 [facility] Height 172.72 cm 11/12/2012 [facility] Weight 65.909 11/12/2012 [facility] Encounters Location Location Details Encounter Type Encounter Number Reason For Visit Attending Provider ADM Date DC Date Status Source [facility] Inpatient [id number] OPEN KNEE WOUND, AUTOPED KENTRELL ENG 11/12/2012 11/16/2012 Active [facility] TH [id number] HUMERUS FX MADELEINE DALIA 03/21/2013 Active [facility] [place] [id number] 719.41 - JOINT PAIN-SHLD KETAN FULLICK 03/23/2013 03/23/2013 Active [facility] [place] OD [id number] 719.41 - JOINT PAIN-SHLD KETAN ESCOBAR 05/06/2013 Active [facility] OD [id number] 719.46 - JOINT PAIN-L/LE KETAN ESCOBAR 06/24/2013 Active [facility] [place] [facility] Outpatient Imaging [place] [facility] [id number] Ketan Fullick 11/30/2013 12/01/2013 [facility] [id number] Ketan Fullick 12/12/2013 01/11/2014 [facility] Outpatient Imaging - [place] [facility] [id number] Ketan Fullick 01/11/2014 01/12/2014 [facility] [place] [facility] [id number] [place] 10/23/2014 11/22/2014 [facility] [id number] [place] 11/24/2014 12/24/2014 [facility] [id number] [place] 12/25/2014 01/24/2015 [facility] [id number] [place] 01/26/2015 02/25/2015 [facility] [id number] [place] 02/26/2015 03/28/2015 [facility] Emergency [id number] Damon Marquiseuma 07/04/2017 07/05/2017 [facility] [id number] RT GREAT TUBEROSITY FX, LT KNEE PAIN KETAN ESCOBAR Active [facility] Procedures Procedure Code Date Perfomer Comments Source Breast lumpectomy <sup>1</sup> [id number] 1biopsy negative [facility] Cholecystectomy [id number] [facility] Reconstruction [id number] [facility] Breast lumpectomy<sup>1</sup> [id number] biopsy negative [facility] Cholecystectomy [id number] [id number]<sup>1</sup> [id number] biopsy negative [facility] Cholecystectomy [id number] [facility] Reconstruction [id number] [facility] Assessment and Plan No Data Provided for This Section Plan of Care No Data Provided for This Section Social History Social History Date Source Social History TypeResponse Smoking Status Never smoker; Previous treatment: None; Ready to change: No; Concerns about tobacco use in household: No; Exposure to Tobacco Smoke None; Cigarette Smoking Last 365 Days No; Reg Smoking Cessation Counseling No 07/05/2017 [facility] Social History TypeResponse 03/28/2015 [facility] Alex Rebecca [facility] Social History TypeResponse 01/12/2014 MARGARET [place] Social History TypeResponse 12/01/2013 [facility]ARG[facility]ET uW Family History No Data Provided for This Section Advance Directives No Data Provided for This Section Functional Status No Data Provided for This Section
[2019-02-02] MEDS ORDERED: BUPIVACAINE HCL 0.5% INJ 30 ML VIAL INJ ONE (10:28)
[2019-02-02] MEDS ORDERED: CEFOXITIN 1GM/ D5W 50ML 100 ML IV ONE (10:33)
[2019-02-02] MEDS ORDERED: SUGAMMADEX SODIUM 200 MG/2 ML VIAL IV ONE (12:40)
[2019-02-02] MEDS ORDERED: IBUPROFEN 800MG/ 250ML 250 ML IV ONE (12:41)
[2019-02-02] MEDS ORDERED: NALOXONE HCL INJ 0.4 MG/ML AMP IV PRN (12:45)
[2019-02-02] MEDS ORDERED: ONDANSETRON HCL INJ 2MG/ML 2ML 2 MG/ML VIAL IV PRN (12:45)
[2019-02-02] MEDS ORDERED: KETOROLAC TROMETHAMINE 30 MG/ML VIAL IV PRN (12:45)
[2019-02-02] MEDS ORDERED: ACETAMINOPHEN 1000 MG/100 ML IV PRN (12:45)
[2019-02-02] MEDS ORDERED: HYDROMORPHONE 1MG/1ML INJ ONE (13:15)
[2019-02-02] MEDS: HYDROMORPHONE 0.2MG/ML-SOD CHL 30ML PCA SYRINGE IV PRN ×2 (13:18→20:20)
--- OUTSIDE RECORDS SUMMARY | 2019-02-02 14:12 | XMS REPORT | Continuity of Care Document ---
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 07/04/2017 [facility] Respitory Rate 18 11/16/2012 [facility] Temperature Oral (F) 98.1 F 11/16/2012 [facility] Systolic (mm Hg) 113 11/16/2012 [facility] Diastolic (mm Hg) 65 11/16/2012 [facility] Heart Rate 89 11/16/2012 [facility] Systolic (mm Hg) 128 11/16/2012 [facility] Temperature Oral (F) 98.1 F 11/16/2012 [facility] Heart Rate 76 11/16/2012 [facility] Respitory Rate 20 11/16/2012 [facility] Diastolic (mm Hg) 78 11/16/2012 [facility] Heart Rate 80 11/16/2012 [facility] Respitory Rate 20 11/16/2012 [facility] Temperature Oral (F) 98.2 F 11/16/2012 [facility] Systolic (mm Hg) 106 11/16/2012 [facility] Diastolic (mm Hg) 56 11/16/2012 [facility] Weight 65.909 11/13/2012 [facility] Height 172.7 cm 11/13/2012 [facility] Height 172.72 cm 11/12/2012 [facility] Weight 65.909 11/12/2012 [facility] Encounters Location Location Details Encounter Type Encounter Number Reason For Visit Attending Provider ADM Date DC Date Status Source [facility] Inpatient [id number] OPEN KNEE WOUND, AUTOPED KENTRELL ENG 11/12/2012 11/16/2012 Active [facility] TH [id number] HUMERUS FX MADELEINE DALIA 03/21/2013 Active [facility] [place] [id number] 719.41 - JOINT PAIN-SHLD KETAN FULLICK 03/23/2013 03/23/2013 Active [facility] [place] [id number] 719.41 - JOINT PAIN-SHLD KETAN ESCOBAR 05/06/2013 Active [facility] [place] [id number] 719.46 - JOINT PAIN-L/LE KETAN ESCOBAR 06/24/2013 Active [facility] [place] [facility] Outpatient [facility] [place] [facility] [id number] Ketan Fullick 11/30/2013 12/01/2013 [facility] Patients [id number] Ketan Fullick 12/12/2013 01/11/2014 [facility] Out[facility] - [place] [facility] [id number] Ketan Fullick 01/11/2014 01/12/2014 [facility] [place] [facility] [id number] [place] 10/23/2014 11/22/2014 [facility] [id number] [place] 11/24/2014 12/24/2014 [facility] [id number] [place] 12/25/2014 01/24/2015 [facility] [id number] [place] 01/26/2015 02/25/2015 [facility] [id number] [place] 02/26/2015 03/28/2015 [facility] Emergency [id number] Damon Marquiseuma 07/04/2017 07/05/2017 [facility] [id number] RT GREAT TUBEROSITY FX, LT KNEE PAIN KETAN ESCOBAR Active [facility] Procedures Procedure Code Date Perfomer Comments Source Breast lumpectomy <sup>1</sup> [id number] 1biopsy negative [facility] Cholecystectomy [id number] [facility] Reconstruction [id number] [facility] Breast lumpectomy<sup>1</sup> [id number] biopsy negative [facility] Cholecystectomy [id number] [id number]pectomy<sup>1</sup> [id number] biopsy negative [facility] Cholecystectomy [id number] [facility] Reconstruction [id number] [facility] Assessment and Plan No Data Provided for This Section Plan of Care No Data Provided for This Section Social History Social History Date Source Social History TypeResponse Smoking Status Never smoker; Previous treatment: None; Ready to change: No; Concerns about tobacco use in household: No; Exposure to Tobacco Smoke None; Cigarette Smoking Last 365 Days No; Reg Smoking Cessation Counseling No 07/05/2017 [facility] Social History TypeResponse 03/28/2015 [facility] Alex Rebecca [facility] Social History TypeResponse 01/12/2014 MARGARET Dodd Social History TypeResponse 12/01/2013 MARG[facility]ET Wu Family History No Data Provided for This Section Advance Directives No Data Provided for This Section Functional Status No Data Provided for This Section
--- NOTE | 2019-02-02 14:45 | NUR ---
RECEIVED PATIENT FROM RECOVERY. PATIENT A/O X3, EVEN RESPIRATIONS. PATIENT ON 2LNC, LUNG SOUNDS CLEAR TO AUSCULTATION. BOWEL SOUNDS ACTIVE. ABDOMINAL DRESSING CLEAN, DRY, AND INTACT. MCCARTNEY IN PLACE WITH CLEAR YELLOW URINE. CERTIFIED TECHNICIAN DILAUDID IN PLACE. PAIN 3/10 IN ABDOMEN. SCD'S BILATERALLY. LEFT HAND 20 GAUGE IV WITH D5LR @ 125 CC/HR. VITAL SIGNS STABLE. NO SIGNS OF DISTRESS. BED LOW, WHEELS LOCKED, SIDE RAILS X2. CALL LIGHT IN REACH. WILL CONTINUE TO MONITOR PATIENT.
--- NOTE | 2019-02-02 15:04 | Operative Report ---
DATE OF PROCEDURE: 02/02/2019 SURGEON: Khurram Hart MD PREOPERATIVE DIAGNOSIS: Recurrent sigmoid diverticulitis. POSTOPERATIVE DIAGNOSIS: Recurrent sigmoid diverticulitis. PROCEDURE: Laparoscopic-assisted sigmoid colon resection. PEN OR PENCIL ASSEMBLY MACHINE OPERATOR: None. ANESTHESIA: General. INDICATIONS AND FINDINGS: The patient is a 53-year-old female, who has had recurrent episodes of sigmoid diverticulitis. She has had recent hospitalization and surgery based on area in the mid sigmoid colon, which was very inflamed and thickened with diverticular disease with approximately 15 cm of sigmoid colon resected. TECHNIQUE: After adequate general endotracheal anesthesia, the patient in supine position, legs in low stirrups. The abdomen was prepped and draped in a sterile fashion with ChloraPrep solution. The perineum was prepped and draped in sterile fashion with Betadine solution. Umbilicus was infiltrated with 0.5% Marcaine. Incision was made in the umbilicus, abdominal wall was elevated and Veress needle was introduced. Pneumoperitoneum was then created. A 10 mm trocar and cannula was then passed through this wound. Laparoscopic camera was introduced. Initial laparoscopy revealed no free fluid. A 5 mm trocar and cannula was placed suprapubically and a 5 mm trocar and cannula placed in the epigastrium. Sigmoid colon was mobilized by dividing peritoneal attachments to left ureter. Ureter was identified and preserved. The colon was inflamed in the mid sigmoid colon where it was adherent to the ovary. Colon was dissected free. Adhesions were divided with LigaSure device. Colon was free completely from where it was adherent to the ovary and also to portion to the bladder till the entire area of inflammation was free. Care was taken not to injure the ureter. Once the colon was completely mobilized and free, incision made in the lower midline just above in the suprapubic area. Peritoneal cavity was entered. The colon was delivered up into the wound. The inflamed segment of colon was resected. The colon proximal and distal were divided with BIGG stapler, mesentery divided with LigaSure device, approximately 15 cm of colon was resected. Anastomosis may be the proximal and distal colon with a BIGG stapler and TL60 stapler. Hemostasis was seen to be adequate. The wound was irrigated with saline, inspected for hemostasis, which was seen to be adequate. The midline fascia was then closed with running suture of #1 PDS. Subcutaneous tissue was irrigated with saline. Fascia in the umbilical was closed with 0 Vicryl. Skin to all wounds closed with so. Sterile dressing was applied. The patient tolerated the procedure well. Estimated blood loss was 75 mL. There were no complications. All counts were correct and the patient was taken to the recovery room in satisfactory condition. MD SHAYLA Reyes/MODL /[id number] cc: MD Chelsea Paredes MD
[2019-02-02 15:15] VITALS: BP 100/56
[2019-02-02] MEDS ORDERED: ONDANSETRON HCL INJ 2MG/ML 2ML 2 MG/ML VIAL ONE (15:27)
[2019-02-02] MEDS ORDERED: FENTANYL CITRATE/PF 100MCG/2 ML INJ ONE (15:27)
[2019-02-02] MEDS ORDERED: SEVOFLURANE INHAL SOLN 250 ML PEN BTL ONE (15:27)
[2019-02-02] MEDS ORDERED: NEOSTIGMINE 5 MG/5ML SYR ONE (15:27)
[2019-02-02] MEDS ORDERED: ACETAMINOPHEN 1000 MG/100 ML IV ONE (15:27)
[2019-02-02] MEDS ORDERED: LIDOCAINE HCL 2% LOCAL INJ 5 ML SDV VIAL INJ ONE (15:27)
[2019-02-02] MEDS ORDERED: LIDOCAINE HCL 2% JELLY 5 ML TUBE ONE (15:27)
[2019-02-02] MEDS ORDERED: PROPOFOL IV EMULSION 10 MG/ML 20 ML VIAL ONE (15:27)
[2019-02-02] MEDS ORDERED: ROCURONIUM BROMIDE 10 MG/ML 5ML VIAL ONE (15:27)
[2019-02-02] MEDS ORDERED: MIDAZOLAM HCL 2 MG/2 ML VIAL ONE (15:27)
[2019-02-02] MEDS ORDERED: EPHEDRINE SULFATE INJ 50 MG/10 ML SYR ONE (15:27)
[2019-02-02] MEDS ORDERED: GLYCOPYRROLATE INJ 1MG/ 5 ML SYR ONE (15:27)
[2019-02-02] MEDS ORDERED: DEXAMETHASONE SOD PHOS INJ 4 MG/ML VIAL ONE (15:27)
[2019-02-02 15:40] VITALS: BP 100/56
[2019-02-02 15:46] VITALS: BP 100/56
[2019-02-02 17:14] VITALS: BP 100/56
[2019-02-02] MEDS: CEFOXITIN 1GM/ D5W 50ML 50 ML IV SCH ×2 (17:41→23:36)
[2019-02-02] MEDS: DEXTROSE 5%/LACTATED RINGERS 1,000 ML IV SCH (17:41)
--- NOTE | 2019-02-02 19:03 | NUR ---
RECEIVED REPORT FROM PREVIOUS NURSE. CALL LIGHT WITHIN REACH. PATIENT IS IN BED. AT BEDSIDE. PATIENT IS A&OX3
[2019-02-02 20:00] VITALS: BP 93/55
[2019-02-03] VITALS (8 sets, daily range): BP systolic 95–110; BP diastolic 51–66
[2019-02-03] MEDS: DEXTROSE 5%/LACTATED RINGERS 1,000 ML IV SCH ×2 (02:44→21:19)
--- NOTE | 2019-02-03 05:34 | NUR ---
Patient complained of wanting to pee so bladder scan was done and 6 cc and [address] Alcocer said to DC Smith if the patient wants. patient said she wanted the smith out so Smith was taken out.
[2019-02-03] MEDS: CEFOXITIN 1GM/ D5W 50ML 50 ML IV SCH ×2 (05:56→12:23)
[2019-02-03 05:58] LABS: BASOPHILS % 0.1 % (0.0-1.0); EOSINOPHILS % 0.1 % (0.0-6.0); HEMATOCRIT 33.4 % (34.2-44.1); HEMOGLOBIN 10.9 g/dL (12.0-16.0); LYMPHOCYTES # (AUTO) 1.2 (1.0-3.2); LYMPHOCYTES % 9.5 % (18.0-39.1); MEAN CORPUSCULAR HEMOGLOBIN 31.7 pg (28-32); MEAN CORPUSCULAR HGB CONC 32.6 g/dL (31-35); MEAN CORPUSCULAR VOLUME 97.1 fL (81-99); MONOCYTES # (AUTO) 0.9 (0.2-0.8); MONOCYTES % 7.4 % (4.4-11.3); NEUTROPHILS # (AUTO) 10.3 (2.1-6.9); NEUTROPHILS % 82.2 % (38.7-80.0); PLATELET COUNT 290 x10e3/uL (140-360); RED BLOOD COUNT 3.44 x10e6/uL (3.6-5.1); RED CELL DISTRIBUTION WIDTH 14.2 % (11.7-14.4)
[2019-02-03 06:16] LABS: ANION GAP 11.1 mmol/L (8-16); BLOOD UREA NITROGEN 7 mg/dL (7-26); BUN/CREATININE RATIO 11 (6-25); CALCIUM 8.4 mg/dL (8.4-10.2); CARBON DIOXIDE 24 mmol/L (22-29); CHLORIDE 105 mmol/L (98-107); CREATININE, SERUM 0.66 mg/dL (0.57-1.11); EST GLOMERULAR FILTRATION RATE > 60 ML/MIN (60-); GLUCOSE 165 mg/dL (74-118); POTASSIUM 4.1 mmol/L (3.5-5.1); SODIUM 136 mmol/L (136-145)
--- NOTE | 2019-02-03 06:22 | Consultation ---
DATE OF CONSULTATION: REASON FOR CONSULTATION: Postop medical management. HISTORY OF PRESENT ILLNESS: The patient is a 53-year-old lady with history of recurrent severe diverticulitis, who is now status post laparoscopic sigmoidectomy postoperative management. The patient currently complains of some abdominal pain. She also has some dysuria and urinary retention type symptoms despite having Fair[place] catheter. PAST MEDICAL HISTORY: Diverticulitis. MEDICATIONS: See MAR. ALLERGIES: LEVAQUIN, KETOROLAC, , IODINE. FAMILY HISTORY: Noncontributory. SOCIAL HISTORY: Nonsmoker and nondrinker, lives at home with her . PHYSICAL EXAMINATION: VITAL SIGNS: Temperature is a 96.2, pulse 91, blood pressure 95/52, and sats 97%. GENERAL: She is no apparent distress, lying bed. NECK: Supple. LUNGS: Clear to auscultation bilaterally. CARDIOVASCULAR: Regular rate and rhythm. ABDOMEN: Soft and nondistended, hypoactive bowel sounds. EXTREMITIES: No clubbing or cyanosis. NEUROLOGIC: Nonfocal. ASSESSMENT AND PLAN: 1. Status post laparoscopic sigmoidectomy for diverticulitis. Continue with postoperative care. 2. . 3. Dysuria. We will go ahead and do a bladder scan to see if she has any urinary retention. If found having it, put a catheter in. If there is no evidence of urine and she may just be having some bladder spasms, so she may benefit from antispasmodic agents or actually need a Fairbanks catheter. Please see the hospital chart for details. MD MARCELLE Paredes/LETY /[id number]
[2019-02-03] MEDS: HYDROMORPHONE 0.2MG/ML-SOD CHL 30ML PCA SYRINGE IV PRN ×2 (06:32→19:58)
--- NOTE | 2019-02-03 07:10 | NUR ---
Gave report to oncoming nurse. Patient in bed. call light within reach.
--- NOTE | 2019-02-03 07:30 | NUR ---
REC'D PT AAOX3, ON 2L/MIN VIA NC, SCDs ON BILAT. EXTREMITIES, LEFT HAND IV INTACT AND PATENT. PT ON RUG CUTTER PUMP AND WENT OVER SETTINGS WITH NIGHT NURSE. NO S/S OF DISTRESS. PATIENT ON CLEAR LIQUID DIET PER DR. SHIELDS. BED IN LOWEST POSITION, SIDE RAILS UPX2, AND CALL THOMAS WITHIN REACH.
--- NOTE | 2019-02-03 18:30 | NUR ---
ASSISTED PATIENT TO THE RESTROOM. PATIENT VOIDED ABOUT 60 ML. ASSISTED PATIENT BACK INTO BED. DIRECT SALES PROFESSIONAL PUMP RUNNING. BED IN LOWEST POSITION, SIDE RAILS UP X2, AND CALL THOMAS WITHIN REACH.
--- NOTE | 2019-02-03 18:58 | NUR ---
RECEIVED REPORT FROM PREVIOUS NURSE. PATIENT IN BED. FAMILY AT BEDSIDE. CALL LIGHT WITHIN REACH
[2019-02-04] VITALS (8 sets, daily range): BP systolic 88–120; BP diastolic 52–58
[2019-02-04] MEDS: DEXTROSE 5%/LACTATED RINGERS 1,000 ML IV SCH ×3 (05:26→20:51)
[2019-02-04 05:52] LABS: HEMATOCRIT 31.1 % (34.2-44.1); HEMOGLOBIN 9.8 g/dL (12.0-16.0); MEAN CORPUSCULAR HEMOGLOBIN 31.3 pg (28-32); MEAN CORPUSCULAR HGB CONC 31.5 g/dL (31-35); MEAN CORPUSCULAR VOLUME 99.4 fL (81-99); PLATELET COUNT 270 x10e3/uL (140-360); RED BLOOD COUNT 3.13 x10e6/uL (3.6-5.1); RED CELL DISTRIBUTION WIDTH 14.3 % (11.7-14.4)
[2019-02-04 06:17] LABS: ANION GAP 12.1 mmol/L (8-16); BLOOD UREA NITROGEN < 5 mg/dL (7-26); CALCIUM 8.3 mg/dL (8.4-10.2); CARBON DIOXIDE 24 mmol/L (22-29); CHLORIDE 106 mmol/L (98-107); CREATININE, SERUM 0.63 mg/dL (0.57-1.11); EST GLOMERULAR FILTRATION RATE > 60 ML/MIN (60-); GLUCOSE 103 mg/dL (74-118); POTASSIUM 4.1 mmol/L (3.5-5.1); SODIUM 138 mmol/L (136-145)
[2019-02-04 06:21] LABS: BUN/CREATININE RATIO 8 (6-25)
--- NOTE | 2019-02-04 06:59 | NUR ---
Gave report to oncoming nurse. Call light within reach. Patient in bed.
--- NOTE | 2019-02-04 07:22 | Consultation ---
DATE OF CONSULTATION: HISTORY OF PRESENT ILLNESS: This is a 53-year-old female, status post sigmoid resection for recurrent diverticulitis. The patient is pain controlled right now, is on a PRIMARY MILL ROLLER pump. Bowel sounds are audible and the patient does not have any gas at this time. This is postoperative day #2. No chest pain. No shortness of breath. No nausea, no vomiting, and no problems at this time. OBJECTIVE: VITAL SIGNS: Temperature is 96.6, pulse of 66, respirations of 17, blood pressure is on the lower side of 92/53, pulse oximetry of 98%. HEENT: Normocephalic, atraumatic. Pupils are reactive to light and accommodation. CVS: S1 and S2 normal. Regular rate and rhythm. ABDOMEN: Bowel sounds are positive. Nontender, nondistended. Wound clean and dry, on bandage. EXTREMITIES: No clubbing, no cyanosis, no edema. LABORATORY VALUES: The patient's chemistries are pending from today. Last sodium was 136, potassium 4.1. Hematology last one hemoglobin was 12.55, hematocrit of 33.4. MEDICATIONS: She is on lactated Ringer's, hydromorphone for pain, PRIMARY MILL ROLLER pump, Zofran 4 mg, naloxone as needed, and also 30 mg of ketorolac as needed. IMAGING STUDIES: None done. ASSESSMENT: 1. Status post laparoscopic sigmoidectomy with colon resection for recurrent diverticulitis. 2. Pain control. We will continue the patient on PRIMARY MILL ROLLER pump. 3. Leukocytosis. The patient will be watched. White count is being monitored. We will continue monitoring the white count. Further recommendation per clinical course. We will continue to monitor the patient. The patient has a Fairbanks catheter in and we will monitor Fairbanks and possible discharge with Fairbanks today. MD ASAF Chavez/MODL /[id number]
[2019-02-04 07:26] LABS: ANISOCYTOSIS SLIGHT; EOSINOPHILS % (MANUAL) 5 % (0-7); HYPOCHROMASIA SLIGHT; LYMPHOCYTES % (MANUAL) 17 % (19-48); MONOCYTES % (MANUAL) 4 % (3.4-9.0); NEUTROPHILS % (MANUAL) 74 % (40-74); PLATELET ESTIMATE ADEQUATE; PLATELET MORPHOLOGY COMMENT NORMAL
--- NOTE | 2019-02-04 07:30 | NUR ---
REC'D PT AAOX3, ON 2L OF O2 VIA NC, NO S/S OF DISTRESS. IV TO RIGHT HAND IS INTACT AND PATENT. FLUIDS RUNNING VIA IV. REVIEWED LUMP ROLLER PUMP WITH PAINT STOCK CLERK NURSE. NOTIFIED PT TO CALL FOR ASSISTANCE. BED IN LOWEST POSITION, SIDE RAILS UP X2, AND CALL THOMAS WITHIN REACH. LUMP ROLLER BUTTON WITHIN REACH.
--- NOTE | 2019-02-04 09:06 | NUR ---
CM RECEIVED CALL FROM [facility] FOR DISCHARGE PLANNING ASSISTANCE. PATIENT CURRENTLY WITH NO DISCHARGE PLAN. INSURANCE CM LEFT CONTACT FOR ANY ASSISTANCE. TOMASZ: [phone]
--- NOTE | 2019-02-04 15:10 | NUR ---
PT DISCONTINUED FROM HELP DESK CONSULTANT PUMP PER DR. SHIELDS'S ORDERS. WASTED WITH ANOTHER NURSE IN MED ROOM. COMPLETED HELP DESK CONSULTANT SHEET.
--- NOTE | 2019-02-04 15:47 | NUR ---
ORDERS CARRIED OUT PER DR. SHIELDS'S ORDERS.
[2019-02-04] MEDS: HYDROCODONE/APAP 7.5MG-325MG 1 EA TAB PO PRN ×2 (17:56→23:10)
--- NOTE | 2019-02-04 18:25 | NUR ---
ASSISTED PT TO RESTROOM AND BACK TO BED. ADMINISTERED PAIN PILL PO. SIDE RAILS UPX2, CALL THOMAS WITHIN REACH, AND BED IN LOWEST POSITION.
[2019-02-05] VITALS (7 sets, daily range): BP systolic 109–142; BP diastolic 60–81
[2019-02-05] MEDS: DEXTROSE 5%/LACTATED RINGERS 1,000 ML IV SCH ×3 (02:19→22:51)
--- NOTE | 2019-02-05 06:43 | Progress Note ---
DATE: SUBJECTIVE: Ms. Singh is a 53-year-old lady, status post colon resection for recurrent diverticulitis. Currently, the patient is pain free, sleeping. No chest pain, no shortness of breath, no bowel movements, no gas yet. She was walking around yesterday. No complaints other than this. OBJECTIVE: VITAL SIGNS: Temperature is 98.1, pulse of 80, respirations of 20, blood pressure is 124/68, pulse oximetry of 96%. HEENT: Normocephalic, atraumatic. Pupils reactive to light and accommodation. CVS: S1 and S2 normal. Regular rate and rhythm. ABDOMEN: Nontender, nondistended. Bowel sounds negative. Positive for bandages on the abdomen. EXTREMITIES: No clubbing, no cyanosis, no edema. LABORATORY VALUES: Today's white count is down to 8.73, hemoglobin of 9.8, hematocrit 31.1. Chemistry shows sodium 138, potassium 4.1, BUN of less than 5, creatinine 0.6 with a calcium of 8.3. ASSESSMENT: 1. Recurrent diverticulitis, status post laparoscopic sigmoidectomy. 2. Leukocytosis, better. 3. History of hypertension. Continue monitoring blood pressure. 4. Fairbanks catheter and PULPER OPERATOR pump discharge, pain controlled. Further recommendation per clinical course. Plan would be to get the patient out of bed. Encourage incentive spirometry use and possible discharge depending on progress. MD LOW ChavezJ/MODL /[id number]
--- NOTE | 2019-02-05 06:54 | NUR ---
REPORT GIVEN TO ONCOMING NURSE,WALKING ROUNDS MADE.PT RESTING IN BED WITH NO S/S OF DISTRESS.
--- NOTE | 2019-02-05 07:22 | NUR ---
Rcvd patient in report this am. Patient is asleep in bed at this time. no s/s of distress noted
--- NOTE | 2019-02-05 09:00 | NUR ---
Patient is AAOx3. Patient is post op day 3 lap colon resection. Dressing clean and dry to abdomen. Patient has active bowel sounds. Patient informs nurse that she is not passing gas at this time. Tolerating her full liquid diet. Right hand IV in place. IV fluids infusing. No edema noted. Patient has some c/o pain. 09/19 but not wanting any pain meds at this time. Informed patient to call when she feels the needs for pain.
[2019-02-05] MEDS: HYDROCODONE/APAP 7.5MG-325MG 1 EA TAB PO PRN ×3 (10:23→23:17)
--- NOTE | 2019-02-05 12:00 | NUR ---
This nurse assisted patient to ambulate in the hallway. patient tolerated well and sitting in chair for lunch at this time.
[2019-02-05] MEDS ORDERED: MORPHINE SULFATE INJ 4 MG/ML INJ 1ML IV PRN (22:30)
[2019-02-06] VITALS (8 sets, daily range): BP systolic 114–125; BP diastolic 53–61
[2019-02-06] MEDS: HYDROCODONE/APAP 7.5MG-325MG 1 EA TAB PO PRN ×3 (05:40→17:38)
--- NOTE | 2019-02-06 07:12 | NUR ---
Rcvd patient in report this am. Patient is asleep in bed at this time. No s/s of distress noted
--- NOTE | 2019-02-06 09:12 | NUR ---
Patient had a medium loose BM at this time.
--- NOTE | 2019-02-06 10:41 | NUR ---
Call placed to Dr. Gupta to inquire about advancing her diet to gi soft d/t patient having a BM
--- NOTE | 2019-02-06 10:48 | Progress Note ---
DATE: SUBJECTIVE: The patient is here for status post laparoscopic cholecystectomy for chronic diverticulitis. The patient is currently asymptomatic. Pain is controlled. Last night, the patient had episode of pain in the incision. Extra dose of morphine was given. She is in better control of pain. No gas. No bowel movement and no flatus. The patient is otherwise asymptomatic. OBJECTIVE: VITAL SIGNS: Temperature is 96.9, pulse of 70, respirations of 18, blood pressure is 118/56, pulse oximetry of 95%. HEENT: Normocephalic, atraumatic. Pupils are reactive to light and accommodation. CVS: S1, S2 normal. Regular rate and rhythm. ABDOMEN: Nontender and nondistended. Bowel sounds are present. Wound is dry and clean. EXTREMITIES: No clubbing, no cyanosis, no edema. LABORATORY DATA: None done today. ASSESSMENT: 1. Status post laparoscopic sigmoid removal. 2. Pain control. 3. Hypertension. PLAN: Plan is to continue to monitor the patient. She is tolerating her clear liquid diet. Advance diet as tolerated. Further recommendation per clinical course and discharge planning soon. MD ASAF Chavez/MODL /[id number]
[2019-02-06] MEDS: DEXTROSE 5%/LACTATED RINGERS 1,000 ML IV SCH (16:20)
--- NOTE | 2019-02-06 19:57 | NUR ---
PT RESTING IN BED AT THIS TIME. PT STATES THAT THE NORCO DID NOT WORK FOR HER PAIN. ABDOMINAL DRESSING CLEAN DRY AND INTACT. ICE PACK PROVIDED AT THIS TIME. BED IS IN LOW LOCKED POSITION AND SIDE RAILS UP X2. WILL CONTINUE TO MONITOR PT.
[2019-02-07] VITALS (8 sets, daily range): BP systolic 107–125; BP diastolic 53–64
[2019-02-07 05:44] LABS: BASOPHILS % 0.5 % (0.0-1.0); EOSINOPHILS # (AUTO) 0.4 (0.0-0.4); EOSINOPHILS % 5.6 % (0.0-6.0); HEMATOCRIT 36.4 % (34.2-44.1); HEMOGLOBIN 12.2 g/dL (12.0-16.0); LYMPHOCYTES # (AUTO) 1.8 (1.0-3.2); LYMPHOCYTES % 22.6 % (18.0-39.1); MEAN CORPUSCULAR HEMOGLOBIN 31.4 pg (28-32); MEAN CORPUSCULAR HGB CONC 33.5 g/dL (31-35); MEAN CORPUSCULAR VOLUME 93.6 fL (81-99); MONOCYTES # (AUTO) 0.6 (0.2-0.8); MONOCYTES % 7.9 % (4.4-11.3); NEUTROPHILS # (AUTO) 4.9 (2.1-6.9); PLATELET COUNT 339 x10e3/uL (140-360); RED BLOOD COUNT 3.89 x10e6/uL (3.6-5.1); RED CELL DISTRIBUTION WIDTH 13.6 % (11.7-14.4)
[2019-02-07 06:04] LABS: BLOOD UREA NITROGEN 7 mg/dL (7-26); BUN/CREATININE RATIO 10 (6-25); CALCIUM 9.2 mg/dL (8.4-10.2); CARBON DIOXIDE 22 mmol/L (22-29); CHLORIDE 105 mmol/L (98-107); CREATININE, SERUM 0.68 mg/dL (0.57-1.11); EST GLOMERULAR FILTRATION RATE > 60 ML/MIN (60-); GLUCOSE 81 mg/dL (74-118); SODIUM 138 mmol/L (136-145)
[2019-02-07] MEDS: HYDROCODONE/APAP 7.5MG-325MG 1 EA TAB PO PRN ×3 (07:23→21:20)
--- NOTE | 2019-02-07 07:30 | NUR ---
REC'D PT AAOX3, RESTING ON SEMI-FOWLERS POSITION, ON ROOM AIR, AND NO S/S OF DISTRESS. BED IN LOWEST POSITION, SIDE RAILS UP X2, AND CALL THOMAS WITHIN REACH.
[2019-02-07] MEDS: DEXTROSE 5%/LACTATED RINGERS 1,000 ML IV SCH (07:39)
[2019-02-07] MEDS ORDERED: ONDANSETRON HCL 4 MG ORAL DISINTEGRATING TAB PO PRN (12:30)
--- NOTE | 2019-02-07 12:59 | NUR ---
DISCUSSED IN BARRIER ROUNDS, PATIENT WITH NORMAL LABS, ROCK CRUSHER OPERATOR PUMP DISCONTINUED, ON GI SOFT DIET AND TOLERATING. PATIENT STABLE AT THIS TIME. BEDSIDE RN PAGING CONSULTING MD'S FOR CLEARANCE AND DR. SHIELDS FOR DISCHARGE ORDER. CM TO F/U AT 3:00 MEETING.
--- NOTE | 2019-02-07 16:30 | NUR ---
PT RECEIVED MAIL THAT WAS DELIVERED TO HOSPITAL, PT COMPLAINED TO CHARGE NURSE MAIL HAD BEEN OPENED, SPOKE WITH LUCY IN ADMINISTRATION RE: OPENED MAIL, STATES SHE WILL SPEAK WITH PATIENT.
--- NOTE | 2019-02-07 16:30 | NUR ---
CALLED DR. CHAPMAN IN REGARDS TO DISCHARGING PATIENT. HE SAID NOT UNTIL TOMORROW BECAUSE PATIENT STATED TO HIM THAT SHE WAS NOT READY TO BE DISCHARGED TODAY.
--- NOTE | 2019-02-07 18:10 | NUR ---
PT IS WALKING THROUGH THE HALLWAY WITH THE ASSISTANCE OF HER . PT TOLERATING WALK WELL. NON-SKI SOCKS ON. NO S/S OF DISTRESS.
[2019-02-08 05:07] VITALS: BP 115/65
--- NOTE | 2019-02-08 07:09 | NUR ---
Bedside shift report performed with CHEO Hendricks dayshift nurse. Pt resting in bed at this time. Call light is in reach of pt.
[2019-02-08] MEDS: HYDROCODONE/APAP 7.5MG-325MG 1 EA TAB PO PRN ×2 (07:38→13:39)
[2019-02-08 08:20] VITALS: BP 112/59
--- NOTE | 2019-02-08 10:32 | NUR ---
SPOKE TO STATES PATIENT CAN GO HOME ONCE SHE HAS A BM.
[2019-02-08 12:00] VITALS: BP 106/58
--- NOTE | 2019-02-08 14:21 | NUR ---
Nutrition LOS Note RD Recommendation for Physician: -Continue diet as ordered Plan of Care: Patient has been screened and assessed for nutrition risk. At this time, the patient does not pose any nutrition risk. No further nutrition intervention is warranted at this time. Will re-evaluate if consulted by medical staff. Nutrition reason for involvement: LOS Primary Diagnose(s): Recurrent diverticulitis, status post laparoscopic sigmoidectomy. PMH: Diverticulitis Ht: 68in Wt: 132.25lb BMI: 20.1kg/m2 IBW: 140lb +/- 10% RD Assessment: (02/08) Chart reviewed. Labs and meds reviewed. 53yo F, who was admitted for severe diverticulitis. S/p laparoscopic sigmoidectomy on 02/02. POD 5. Pt has been on GI soft diet x 2 days. Tolerating diet well. No complains of nausea or vomiting. Friend has been bringing pt fast foods. Plan to discharge after pt has a BM. RD answered all questions regarding GI soft diet. Handouts were provided. Current Diet: GI soft diet Malnutrition Evaluation (02/08/19) The patient does not meet criteria for a specified degree of malnutrition at this time. Will re-evaluate at follow-up as appropriate. Diet Education Needs Assessment: Diet education indicated, pt was agreeable. Learner(s): pt Barriers: none Cultural/Language Modifications: Pt speaks Macedonian. Readiness: acceptance Method: Handouts Topics: GI soft diet Understanding/Compliance: Fair understanding/ compliance noted. All questions have been answered. Nutrition Care Level: low Signed: Sofia Quinonez, MS, RD, LD
[2019-02-08 14:38] VITALS: BP 112/59
[2019-02-08 16:49] VITALS: BP 105/70
--- NOTE | 2019-02-08 16:50 | NUR ---
PT HAD ONE FULL BM AT THIS TIME. PAGED FOR OKAY TO DC ORDER WILL PAGE JONO WHEN OKAY WITH .
--- NOTE | 2019-02-08 16:52 | NUR ---
DEMETRICE FROM [facility] CALLED AND STATES WILL AUTH ONE MORE ROBERT WHICH IS TODAY, THE PT NEEDS TO DISCHARGE, HER NUMBER IS [phone], AUTH NUMBER [id number]
--- NOTE | 2019-02-08 17:53 | NUR ---
PATIENT DISCHARGED AT THIS TIME RX GIVEN, EDUCATION AND F/U INSTRUCTIONS IV DC'D SECURED WITH 4X4 GAUZE AND TAPE. WAITING FOR RIDE
== END 2019-02-08 18:04 | disposition home or self-care (01) | DRG 331 ==
LOC: OR 10:15 → PACU V 14:02 → MED/SURG 14:55
PROVIDERS: ADMIT Surgery; ATTEND Surgery
PROC: 0DBN4ZZ Excision of Sigmoid Colon, Percutaneous Endoscopic Approach (ICD-10-PCS; principal; 2019-02-02 12:30)
DX: K57.92 Diverticulitis of intestine, part unspecified, without perforation or abscess without bleeding (principal); R30.0 Dysuria; D64.9 Anemia, unspecified; R07.9 Chest pain, unspecified; I10 Essential (primary) hypertension; G89.29 Other chronic pain
CPT/HCPCS: 36415; 71046; 80048; 85007; 85025; 85027; 88307; 93005; J1100; J1170; J2001; J2250; J2405; J3010

== ENCOUNTER → 2021-02-25 | Day surgery (SDC) | payer BC ==
[~2021-02-25] MED LIST changes: +ATORVASTATIN CA20 MG PO; +CLINDAMYCIN 600MG / 50ML 50 ML IV ONE; +FENTANYL CITRATE/PF 100MCG/2 ML INJ ONE; +LEVOTHYROXINE75 MCG PO; +LOSARTAN POTASS25 MG PO; +NEURONTIN100 MG PO; +ONDANSETRON HCL INJ 2MG/ML 2ML 2 MG/ML VIAL ONE; +TRAMADOL HCL 50 MG TAB ONE
[2021-02-25 08:35] VITALS: BP 129/66
== END | disposition home or self-care (01) ==
LOC: OR 05:15
PROVIDERS: ATTEND Specialist
DX: G56.02 Carpal tunnel syndrome, left upper limb (principal); I10 Essential (primary) hypertension; E78.5 Hyperlipidemia, unspecified; F17.210 Nicotine dependence, cigarettes, uncomplicated; Z88.6 Allergy status to analgesic agent; Z88.1 Allergy status to other antibiotic agents; Z88.0 Allergy status to penicillin; Z88.8 Allergy status to other drugs, medicaments and biological substances; Z01.810 Encounter for preprocedural cardiovascular examination; Z01.812 Encounter for preprocedural laboratory examination; Z01.818 Encounter for other preprocedural examination; Z20.822 Contact with and (suspected) exposure to COVID-19
CPT/HCPCS: 29848; 71046; 93005; J2405; J3010; U0002

== ENCOUNTER → 2021-03-28 | Day surgery (SDC) | payer BC ==
[2021-03-26 12:34] LABS: BASOPHILS # (AUTO) 0.1 (0.0-0.1); BASOPHILS % 0.5 % (0.0-1.0); EOSINOPHILS # (AUTO) 0.1 (0.0-0.4); EOSINOPHILS % 0.8 % (0.0-6.0); HEMATOCRIT 43.2 % (34.2-44.1); HEMOGLOBIN 13.6 g/dL (12.0-16.0); LYMPHOCYTES # (AUTO) 1.6 (1.0-3.2); LYMPHOCYTES % 17.1 % (18.0-39.1); MEAN CORPUSCULAR HEMOGLOBIN 30.5 pg (28-32); MEAN CORPUSCULAR HGB CONC 31.5 g/dL (31-35); MEAN CORPUSCULAR VOLUME 96.9 fL (81-99); MONOCYTES # (AUTO) 0.6 (0.2-0.8); MONOCYTES % 6.4 % (4.4-11.3); NEUTROPHILS % 74.6 % (38.7-80.0); PLATELET COUNT 333 x10e3/uL (140-360); RED BLOOD COUNT 4.46 x10e6/uL (3.6-5.1); RED CELL DISTRIBUTION WIDTH 14.4 % (11.7-14.4)
[2021-03-26 12:48] LABS: INR 0.92; PROTHROMBIN TIME 12.6 seconds (11.9-14.5)
[2021-03-26 12:49] LABS: PARTIAL THROMBOPLASTIN TIME 32.2 seconds (23.8-35.5)
[2021-03-26 12:50] LABS: ANION GAP 17.6 mmol/L (8-16); CALCIUM 9.3 mg/dL (8.4-10.2); CREATININE, SERUM 0.82 mg/dL (0.57-1.11); POTASSIUM 4.6 mmol/L (3.5-5.1)
[~2021-03-28] MED LIST changes: +ACETAMINOPHEN 325 MG TAB PO PRN; +ATORVASTATIN 40 MG TAB PO SCH; +CARISOPRODOL 350 MG TAB PO PRN; +CEPACOL SORE THROAT LOZENGES PO PRN; -CLINDAMYCIN 600MG / 50ML 50 ML IV ONE; +DEXAMETHASONE SOD PHOS INJ 4 MG/ML SDV ONE; +EPHEDRINE SULFATE INJ 50 MG/ML VIAL ONE; -FENTANYL CITRATE/PF 100MCG/2 ML INJ ONE; +GABAPENTIN 100 MG CAP PO SCH; +HYDROCODON-ACE1 EA12 PO; +HYDROMORPHONE 2MG/ML 2 MG/ML ML IV PRN; +LACTATED RINGER'S 1,000 ML IV SCH; +LEVOTHYROXINE SODIUM 75 MCG TAB PO SCH; +LIDOCAINE 2%/ EPINEPHRINE 20ML MDV ONE; +LIDOCAINE HCL 2% LOCAL INJ 5 ML SDV VIAL INJ ONE; +LOSARTAN POTASSIUM 25 MG TAB PO SCH; +MAGNESIUM/ALUMINUM/SIMETHICONE 30 ML UDC PO PRN; +MORPHINE SULFATE 5 MG/ML VIAL IM PRN; +ONDANSETRON HCL INJ 2MG/ML 2ML 2 MG/ML VIAL IV PRN; +OXYCODONE/ACETAMINOPHEN 5-325 1 EACH TABLET PO PRN; +POVIDONE IODINE 0.05% 0.05 % ML PO ONE; +PROMETHAZINE HCL (IM) 25 MG/ML VIAL IM PRN; +PROPOFOL IV EMULSION 10 MG/ML 20 ML VIAL ONE; +ROCURONIUM BROMIDE 10 MG/ML 5ML VIAL IV ONE; +SEVOFLURANE INHAL SOLN 250 ML PEN BTL ONE; +SODIUM CHLORIDE 0.9% 250ML 250 ML ONE; +THROMBIN FOR SOLN 5,000 UNIT VIAL ONE; -TRAMADOL HCL 50 MG TAB ONE; +Vancomycin IV 1 GM VIAL ONE; +ZOLPIDEM TARTRATE 5 MG TAB PO PRN
[2021-03-28 13:30] VITALS: BP 135/78
== END | disposition home or self-care (01) ==
LOC: OR 06:05
PROVIDERS: ATTEND Neurological Surgery
DX: M50.123 Cervical disc disorder at C6-C7 level with radiculopathy (principal); G89.29 Other chronic pain; R51.9 Headache, unspecified; E03.9 Hypothyroidism, unspecified; J44.9 Chronic obstructive pulmonary disease, unspecified; K44.9 Diaphragmatic hernia without obstruction or gangrene; I10 Essential (primary) hypertension; E78.5 Hyperlipidemia, unspecified; I34.1 Nonrheumatic mitral (valve) prolapse; K21.9 Gastro-esophageal reflux disease without esophagitis; R05 Cough; F41.9 Anxiety disorder, unspecified; F17.210 Nicotine dependence, cigarettes, uncomplicated; Z88.6 Allergy status to analgesic agent; Z88.1 Allergy status to other antibiotic agents; Z88.0 Allergy status to penicillin; Z88.8 Allergy status to other drugs, medicaments and biological substances; Z91.041 Radiographic dye allergy status; Z01.812 Encounter for preprocedural laboratory examination; Z20.822 Contact with and (suspected) exposure to COVID-19; Z91.81 History of falling
CPT/HCPCS: 20931; 22551; 22845; 36415; 72040; 80048; 85025; 85610; 85730; 86850; 86900; 88304; 88311; C1713 ×3; J1100; J2001 ×2; J2405; J2704; J3370; J7050; U0002; 77003

== ENCOUNTER → 2021-04-25 | Outpatient (CLI) | payer BC ==
[~2021-04-25] MED LIST changes: -ACETAMINOPHEN 325 MG TAB PO PRN; -ATORVASTATIN 40 MG TAB PO SCH; -CARISOPRODOL 350 MG TAB PO PRN; -CEPACOL SORE THROAT LOZENGES PO PRN; -DEXAMETHASONE SOD PHOS INJ 4 MG/ML SDV ONE; -EPHEDRINE SULFATE INJ 50 MG/ML VIAL ONE; -GABAPENTIN 100 MG CAP PO SCH; -HYDROMORPHONE 2MG/ML 2 MG/ML ML IV PRN; -LACTATED RINGER'S 1,000 ML IV SCH; -LEVOTHYROXINE SODIUM 75 MCG TAB PO SCH; -LIDOCAINE 2%/ EPINEPHRINE 20ML MDV ONE; -LIDOCAINE HCL 2% LOCAL INJ 5 ML SDV VIAL INJ ONE; -LOSARTAN POTASSIUM 25 MG TAB PO SCH; -MAGNESIUM/ALUMINUM/SIMETHICONE 30 ML UDC PO PRN; -MORPHINE SULFATE 5 MG/ML VIAL IM PRN; -ONDANSETRON HCL INJ 2MG/ML 2ML 2 MG/ML VIAL IV PRN; -ONDANSETRON HCL INJ 2MG/ML 2ML 2 MG/ML VIAL ONE; -OXYCODONE/ACETAMINOPHEN 5-325 1 EACH TABLET PO PRN; -POVIDONE IODINE 0.05% 0.05 % ML PO ONE; -PROMETHAZINE HCL (IM) 25 MG/ML VIAL IM PRN; -PROPOFOL IV EMULSION 10 MG/ML 20 ML VIAL ONE; -ROCURONIUM BROMIDE 10 MG/ML 5ML VIAL IV ONE; -SEVOFLURANE INHAL SOLN 250 ML PEN BTL ONE; -SODIUM CHLORIDE 0.9% 250ML 250 ML ONE; -THROMBIN FOR SOLN 5,000 UNIT VIAL ONE; -Vancomycin IV 1 GM VIAL ONE; -ZOLPIDEM TARTRATE 5 MG TAB PO PRN
== END ==
LOC: RAD 14:02
PROVIDERS: ATTEND Neurological Surgery
DX: M50.20 Other cervical disc displacement, unspecified cervical region (principal); M43.22 Fusion of spine, cervical region
CPT/HCPCS: 72050

== ENCOUNTER → 2021-11-14 | Outpatient (CLI) | payer BC | LOC: RAD 13:53 | PROVIDERS: ATTEND Neurological Surgery | DX: M50.20 Other cervical disc displacement, unspecified cervical region (principal); M43.22 Fusion of spine, cervical region | CPT/HCPCS: 72050 ==

== ENCOUNTER 2024-04-20 18:14 | Observation (INO) | payer OTHER ==
[~2024-04-20] VITALS: Ht 172.7 cm; Wt 59.9 kg
[2024-04-20 18:22] VITALS: TEMP 98.6
[2024-04-20 18:49] LABS: BASOPHILS # (AUTO) 0.1 (0.0-0.1); BASOPHILS % 0.6 % (0.0-1.0); EOSINOPHILS # (AUTO) 0.4 (0.0-0.4); HEMATOCRIT 44.3 % (34.2-44.1); HEMOGLOBIN 13.7 g/dL (12.0-16.0); LYMPHOCYTES # (AUTO) 2.1 (1.0-3.2); LYMPHOCYTES % 21.3 % (18.0-39.1); MEAN CORPUSCULAR HEMOGLOBIN 29.5 pg (28-32); MEAN CORPUSCULAR HGB CONC 30.9 g/dL (31-35); MEAN CORPUSCULAR VOLUME 95.5 fL (81-99); MONOCYTES # (AUTO) 0.6 (0.2-0.8); NEUTROPHILS # (AUTO) 6.7 (2.1-6.9); NEUTROPHILS % 67.1 % (38.7-80.0); PLATELET COUNT 384 x10e3/uL (140-360); RED BLOOD COUNT 4.64 x10e6/uL (3.6-5.1); RED CELL DISTRIBUTION WIDTH 16.4 % (11.7-14.4); WHITE BLOOD COUNT 9.97 x10e3/uL (4.8-10.8)
[2024-04-20 18:58] LABS: INR 1.14; PROTHROMBIN TIME 15.2 seconds (11.9-14.5)
[2024-04-20 18:59] LABS: PARTIAL THROMBOPLASTIN TIME 36.5 seconds (23.8-35.5)
[2024-04-20 19:10] LABS: ALBUMIN/GLOBULIN RATIO 0.9 (0.8-2.0); ANION GAP 16.3 mmol/L (8-16); BILIRUBIN,TOTAL 0.5 mg/dL (0.2-1.2); CALCIUM 9.7 mg/dL (8.4-10.2); CREATININE, SERUM 0.96 mg/dL (0.57-1.11); POTASSIUM 4.3 mmol/L (3.5-5.1); TOTAL PROTEIN 8.4 g/dL (6.5-8.1)
[2024-04-20 19:15] LABS: TROPONIN I 0.002 ng/mL (0-0.300)
[2024-04-20 20:00] VITALS: PULSE 72; RESP 13
[2024-04-20] MEDS ORDERED: Morphine 4mg INJECTION 4 MG/ML INJ IV PRN (20:15)
[2024-04-20] MEDS ORDERED: ONDANSETRON HCL INJ 2MG/ML 2ML 2 MG/ML VIAL IV PRN (20:15)
[2024-04-20 20:43] VITALS: PULSE 82; RESP 18; O2SAT 99
[2024-04-20 21:45] VITALS: BP 124/69; PULSE 68; RESP 18; TEMP 98.1; O2SAT 97
[2024-04-20 22:00] VITALS: BP 124/69; PULSE 68; RESP 18; TEMP 98.1; O2SAT 97
[2024-04-20 23:42] VITALS: BP 127/63; PULSE 79; RESP 18; TEMP 97.7; O2SAT 97
[2024-04-21] MEDS ORDERED: ASPIRIN81 MG PO (01:21)
[2024-04-21] MEDS ORDERED: MATZIM LA180 MG PO (01:21)
[2024-04-21] MEDS ORDERED: XARELTO20 MG PO (01:21)
[2024-04-21 02:55] VITALS: BP 127/63; PULSE 79; RESP 18; TEMP 97.7; O2SAT 97
[2024-04-21 03:26] VITALS: BP 108/53; PULSE 79; RESP 18; TEMP 98; O2SAT 97
[2024-04-21 06:23] LABS: TROPONIN I 0.001 ng/mL (0-0.300)
[2024-04-21 06:51] VITALS: PULSE 74; RESP 20; O2SAT 97
[2024-04-21 08:16] VITALS: BP 122/69; PULSE 79; RESP 16; TEMP 98.2; O2SAT 98
[2024-04-21 08:21] VITALS: BP 122/69; PULSE 79; RESP 16; TEMP 98.2; O2SAT 98
[2024-04-21 12:12] VITALS: BP 116/55; PULSE 83; RESP 18; TEMP 98.1; O2SAT 98
[2024-04-21 13:27] LABS: TROPONIN I 0.006 ng/mL (0-0.300)
== END 2024-04-21 15:34 | disposition home or self-care (01) ==
LOC: ER 19:08 → ERHOLD 20:13 → MED/SURG2 20:58
PROVIDERS: ADMIT Family Medicine; ATTEND Family Medicine
DX: R07.2 Precordial pain (principal); R10.13 Epigastric pain; I10 Essential (primary) hypertension; I25.10 Atherosclerotic heart disease of native coronary artery without angina pectoris; I25.2 Old myocardial infarction; Z95.5 Presence of coronary angioplasty implant and graft; I48.0 Paroxysmal atrial fibrillation; Z79.01 Long term (current) use of anticoagulants; K21.9 Gastro-esophageal reflux disease without esophagitis; K44.9 Diaphragmatic hernia without obstruction or gangrene; E78.5 Hyperlipidemia, unspecified; Z79.899 Other long term (current) drug therapy; Z79.82 Long term (current) use of aspirin
CPT/HCPCS: 36415; 71045; 80053; 80061; 82550; 83690; 84484; 85025; 85610; 85730; 93005; 94799; 99252; 99284; G0378; J2470

== ENCOUNTER 2024-05-17 12:06 | Emergency (ER) | payer OTHER ==
[~2024-05-17] VITALS: Ht 172.7 cm; Wt 59.9 kg
[~2024-05-17 12:06] MED LIST changes: +ASPIRIN81 MG PO; +MATZIM LA180 MG PO; +XARELTO20 MG PO
[2024-05-17 12:23] VITALS: TEMP 99.1
[2024-05-17 12:48] LABS: BASOPHILS # (AUTO) 0.1 (0.0-0.1); BASOPHILS % 0.5 % (0.0-1.0); EOSINOPHILS # (AUTO) 0.2 (0.0-0.4); HEMATOCRIT 41.6 % (34.2-44.1); HEMOGLOBIN 12.9 g/dL (12.0-16.0); LYMPHOCYTES # (AUTO) 1.9 (1.0-3.2); LYMPHOCYTES % 17.5 % (18.0-39.1); MEAN CORPUSCULAR HEMOGLOBIN 29.6 pg (28-32); MEAN CORPUSCULAR VOLUME 95.4 fL (81-99); MONOCYTES # (AUTO) 0.8 (0.2-0.8); MONOCYTES % 7.2 % (4.4-11.3); NEUTROPHILS # (AUTO) 7.7 (2.1-6.9); PLATELET COUNT 396 x10e3/uL (140-360); RED BLOOD COUNT 4.36 x10e6/uL (3.6-5.1); RED CELL DISTRIBUTION WIDTH 16.5 % (11.7-14.4); WHITE BLOOD COUNT 10.63 x10e3/uL (4.8-10.8)
[2024-05-17] MEDS: SODIUM CHLORIDE 0.9% 1000ML 1,000 ML IV ONE (12:52)
[2024-05-17] MEDS: ONDANSETRON HCL INJ 2MG/ML 2ML 2 MG/ML VIAL IV STA (12:53)
[2024-05-17] MEDS: SUCRALFATE 1 GM TAB PO STA (12:53)
[2024-05-17] MEDS: Morphine 4mg INJECTION 4 MG/ML INJ IV ONE ×2 (12:53→15:33)
[2024-05-17 13:04] LABS: ALBUMIN 3.8 g/dL (3.5-5.0); ANION GAP 18.6 mmol/L (8-16); BILIRUBIN,TOTAL 0.7 mg/dL (0.2-1.2); CALCIUM 9.2 mg/dL (8.4-10.2); CREATININE, SERUM 0.94 mg/dL (0.57-1.11); POTASSIUM 4.6 mmol/L (3.5-5.1); TOTAL PROTEIN 7.6 g/dL (6.5-8.1)
[2024-05-17] MEDS ORDERED: IOPAMIDOL 370 MG/ML 100 ML INFUS..BTL INJ ONE (13:29)
[2024-05-17 14:32] LABS: BILIRUBIN,URINE NEGATIVE (NEGATIVE); CLARITY,URINE SL CLOUDY (CLEAR); COLOR,URINE YELLOW (YELLOW); GLUCOSE, URINE NEGATIVE (NEGATIVE); KETONES,URINE NEGATIVE (NEGATIVE); LEUKOCYTE ESTERASE ,URINE NEGATIVE (NEGATIVE); NITRITE,URINE NEGATIVE (NEGATIVE); PH,URINE 6 (5 - 7); PROTEIN,URINE DIPSTICK NEGATIVE (NEGATIVE); URINE UROBILINOGEN 0.2 mg/dL (0.2 - 1)
[2024-05-17] MEDS ORDERED: HEPARIN SOD/DEXTROSE 5% 25000 UNIT/250 ML BAG IV SCH (14:45)
[2024-05-17] MEDS ORDERED: HEPARIN SOD (PORCINE) 5,000 UNIT/ML VIAL IV ONE (14:45)
[2024-05-17 14:47] LABS: BACTERIA,URINE FEW /HPF; EPITHELIAL CELLS,URINE FEW /LPF; RBC,URINE 0-5 /HPF (0-5); WBC,URINE (MAN) 0-5 /HPF (0-5)
[2024-05-17 14:55] LABS: INR 1.02; PROTHROMBIN TIME 13.9 seconds (11.9-14.5)
[2024-05-17] MEDS: HEPARIN SOD (PORCINE) 5,000 UNIT/ML VIAL IV ONE (15:25)
[2024-05-17] MEDS: HEPARIN 25,000 UNIT/D5W 250ML 250 ML IV SCH (15:28)
[2024-05-17 17:04] VITALS: PULSE 85; RESP 17
[2024-05-17 17:37] VITALS: BP 122/79; PULSE 52; RESP 17; TEMP 99.1; O2SAT 97
== END 2024-05-17 17:23 | disposition other institution (70) ==
LOC: ER 12:30
DX: R10.13 Epigastric pain (principal); K55.069 Acute infarction of intestine, part and extent unspecified; N20.0 Calculus of kidney; I25.10 Atherosclerotic heart disease of native coronary artery without angina pectoris; K21.9 Gastro-esophageal reflux disease without esophagitis; R94.31 Abnormal electrocardiogram [ECG] [EKG]; I25.2 Old myocardial infarction; Z87.19 Personal history of other diseases of the digestive system
CPT/HCPCS: 36415; 71046; 74177; 80053; 81001; 83605; 83690; 85025; 85610; 85730; 93005; 99284; J1644; J2270; J2405; J2470; J7030; Q9967

== ENCOUNTER 2024-09-07 10:30 | Emergency (ER) | payer BC, OTHER ==
[~2024-09-07] VITALS: Ht 172.7 cm; Wt 59.9 kg
[2024-09-07 10:58] VITALS: TEMP 101.5
[2024-09-07] MEDS: ACETAMINOPHEN 325 MG TAB PO ONE (11:23)
[2024-09-07] MEDS: IBUPROFEN 600 MG TAB PO STA (11:30)
[2024-09-07 11:45] LABS: INFLUENZA A AG POSITIVE (NEGATIVE)
[2024-09-07 11:46] LABS: INFLUENZA B AG NEGATIVE (NEGATIVE)
[2024-09-07 11:47] LABS: CORONAVIRUS COVID-19 AG NEGATIVE (NEGATIVE)
[2024-09-07 13:00] VITALS: PULSE 104; RESP 18; O2SAT 96
[2024-09-07] MEDS ORDERED: TAMIFLU75 MG PO (13:43)
== END 2024-09-07 14:41 | disposition home or self-care (01) ==
LOC: ER 12:15
DX: R50.9 Fever, unspecified (principal); J10.1 Influenza due to other identified influenza virus with other respiratory manifestations; R05.9 Cough, unspecified; R09.89 Other specified symptoms and signs involving the circulatory and respiratory systems; M54.50 Low back pain, unspecified; I25.10 Atherosclerotic heart disease of native coronary artery without angina pectoris; K21.9 Gastro-esophageal reflux disease without esophagitis; Z11.52 Encounter for screening for COVID-19; I25.2 Old myocardial infarction
CPT/HCPCS: 70450; 99284